=== PATIENT | male | born 1975 | race Caucasian/White ===

== ENCOUNTER 2017-04-09 12:53 | Emergency (ER) | payer MEDICARE, MEDICAID ==
[~2017-04-09] VITALS: Ht 175.3 cm; Wt 77.1 kg
[~2017-04-09 12:53] MED LIST: ACYCLOVIR800 MG PO; BENADRYL25 M1 PO; BIAXIN500 MG PO; BUSPIRONE HCL10 M1 PO; CELEXA10 MG PO; CYCLOBENZAPRINE10 M2 OR; DIFLUCAN 100MG100 MG PO; FLUTICASONE 50M16 GM; KEFLEX 500MG.500 MG PO; MEDROL 4MG. DOSE4 MG PO; NYSTATIN O15 GM/TUBE EX; PREDNISONE 20MG20 MG PO; SINGULAIR5 MG PO; TIMOLOL5 ML OP; ZYRTEC 10MG TAB10 MG PO; [UNRECOGNIZED DRUG - OTHER] NS
[2017-04-09] MEDS ORDERED: PREDNISONE 20MG20 MG PO (13:12)
[2017-04-09] MEDS ORDERED: KEFLEX 500MG.500 MG PO (13:12)
--- NOTE | 2017-04-09 13:14 | [facility] Report ---
History of Present Issue Date/Time Seen by Provider 04/09/17 1309 Visit Reason Pt arrived:Walked Presenting Problem:PT STATES FEELING BAD SINCE 0400 THIS MORNING. STATES CHILLS, DIZZINESS AND CHEST CONGESTION. STATES TAKING IBUPROFEN AT 0400 Location if Accident: Onset of symptoms date/time:04/09/1702/19/400 or onset unknown for: Have you (or family members/close friends) recently traveled outside the [place]? N If Yes, where/when: Have you had exposure to infectious disease within the past month? TB? Other? Specify: Source patient, RN notes reviewed, family Exam Limitations no limitations Comment Patient states has had burning in his chest, dizziness, nasal congestion, cold chills since late last night. Started after weed eating and mowing. No fever. Denies muscle aches. No cough. ALLERGIES Coded Allergies: tree nut (Intermediate, 11/29/16) latex (11/29/16) Home Medications Reported Medications CITALOPRAM HYDROBROMIDE (Citalopram HBr) 20 MG PO DAILY Cetirizine Hcl (All Day Allergy) 10 MG PO DAILY Montelukast Sodium (Singulair 5MG) 5 MG PO DAILY History Medical History General CAD? No Angina: No NC: No Hypertension? No Hyperlipidemia? No CHF? No DVT? No PE? No COPD? No Asthma? Yes Anemia? No GERD? No Gastric ulcers? No GI Bleed? No Hernia? No Thyroid Problems? No Hypothyroidism? No CVA? No Seizures? No Diabetes? No Renal Insuffiency? No UTI? No Stones? No BPH? No GB Disease: No Nephritic Syndrome? No Asplenia? No Hepatitis? No Sickle Cell Disease? No Arthritis? No Migraines? No Cataracts? No Glaucoma? Yes MRSA? No HIV? No TB? No Anxiety? No Depression? No Cancer? Yes Site: SKIN Immunization HX DT/Tetanus 1-4 Years Ago Flu 2013-15FSN Pneumonia Received In Past Surgical Hx Previous Surgery?Y SPLEENECTOMY RECONSTRU FACIAL SX X 2 LT WRIST FX X 2 SINUS SX, DNS HPV SURGERY RIGHT EYE SX X 2 SKIN CA FACE REMOVED Family History Family HX Diabetes Yes CAD Yes Hypertension Yes Hyperlipidemia Yes Cancer Yes TB No Social History Smoking Hx Smoker: Current Every Day Smoker Tobacco: Yes Type Cigarettes Packs/day < 1 Pack Alcohol Alcohol: No Review of Systems All Other Systems Reviewed and Negative Constitutional chills, denies fever, malaise Respiratory denies cough Physical Exam Vital Signs Vital Signs Date Time Temp Pulse Resp B/P Pulse O2 O2 Flow FiO2 Ox Delivery Rate 04/09 1302 98.2 86 20 106/72 99 General Appearance normal appearance, no apparent distress Ear, Nose, Throat hearing grossly normal, normal ENT inspection Neck normal inspection, non-tender, supple, full range of motion Respiratory Status No: respiratory distress, trachea midline, chest symmetrical. Lung Sounds bilateral: normal breath sounds, lungs clear. Cardiovascular normal exam, regular rate/rhythm, no peripheral edema, no gallop, no JVD, no murmur, no rub Peripheral Pulses Pulses normal Yes Extremities non-tender, normal range of motion, normal inspection, normal capillary refill Neurologic alert, normal exam, oriented x 3 Mental status normal mood/affect Medical Decision Making LABS/Meds/Orders Pt receiving controlled substance in ED? No Departure Departure Time of Disposition 1310 Disposition DC Home or Self Care(routine) Clinical Impression Primary Impression: Allergic pneumonitis Condition STABLE Patient Instructions DI for Acute Bronchitis Discharge Counseling Counseled pt/family regarding diagnosis, test results, medications/RX, home care, follow up needs Prescriptions Current Visit Scripts CEPHALEXIN (Keflex 500MG Capsule) 500 MG PO BID #14 CAP Prednisone (Prednisone 20MG) 20 MG PO BID #10 TAB at 1313
[2017-04-09 13:16] VITALS: BP 106/72
--- OUTSIDE RECORDS SUMMARY | 2017-04-10 17:07 | External Medical Summary Rpt ---
Author Author , DANY SAENZ Address Unknown Phone [email or web address] Team Providers Care Contact Center Rep Name Role Phone SINGH ELVI, SINGH Unavailable Unavailable ELVI [facility] Unavailable Unavailable [place], [facility] [place] [facility] Unavailable Unavailable [facility], [facility] ARNOLD, ARNOLD Unavailable Unavailable ARNOLD BARBARA, ARNOLD Unavailable Unavailable BARBARA ARNOLD BARBARA, ARNOLD Unavailable Unavailable BARBARA TORI STA, TORI Unavailable Unavailable STA DUCKWORTH, DUCKWORTH Unavailable Unavailable CASPER BARBARA, CASPER Unavailable Unavailable BARBARA [facility] Unavailable Unavailable ONCOLOGY &, [facility] & Unavailable Unavailable DUBILIER, CHIPPS TONY & DUBILIER [facility], Unavailable Unavailable [facility] Unavailable Unavailable THE [facility], [facility] DEMI, Unavailable Unavailable [facility] DEMI NARINDER JR MARYANN, NARINDER Unavailable Unavailable JR MARYANN NICHOLE TAQUERIA, Unavailable Unavailable NICHOLE TAQEURIA [facility] Unavailable Unavailable [facility] WRIGHT ANNETTE, WRIGHT ANNETTE Unavailable Unavailable BOOM JESSICA, BOOM Unavailable Unavailable JESSICA [facility] Un[facility] Unavailable Unavailable [facility] Unavailable Unavailable INC, [facility] Unavailable Unavailable HOSPITAL P, [facility] HOSPITAL P COOK MENG, COOK MENG Unavailable Unavailable [facility], Unavailable Unavailable [facility] VIKTOR HOANG Unavailable Unavailable [facility], [facility], [facility] Un[facility], [facility] JACKSON MAX, JACKSON Unavailable Unavailable MAX JACKSON MAX, JACKSON Unavailable Unavailable LINDA HUMPHREY Unavailable Unavailable JULIANE MINOO JR, MINOO JR Unavailable Unavailable MINOO JR DWI, MINOO Unavailable Unavailable JR DWI POLLOCK BARBARA, POLLOCK Unavailable Unavailable BARBARA LAILA RENUKA, Unavailable Unavailable LAILA RENUKA LAILA RENUKA, Unavailable Unavailable LAILA RENUKA MYHAND BARBARA, MYHAND Unavailable Unavailable BARBARA [facility] Unavailable Unavailable [facility], [facility] PSC [facility] Unavailable Unavailable [facility], [facility] PSC COLUNGA PUMA, COLUNGA Unavailable Unavailable PUMA CONNOLLY LAR, CONNOLLY LAR Unavailable Unavailable [facility], [facility], [facility] Unavailable Unavailable [facility], [facility] CHAVEZ, CHAVEZ Unavailable Unavailable CHAVEZ SHE, CHAVEZ Unavailable Unavailable SHE LAMBERT OSMIN, LAMBERT OSMIN Unavailable Unavailable SOKAN BAB, SOKAN BAB Unavailable Unavailable [facility], [facility] Unavailable Unavailable [facility], [facility] KYRA SELWYN, KYRA Unavailable Unavailable SELWYN [facility] Un[facility] Un[facility] DEPT [facility] DE[facility] BILL [facility] Unavailable Unavailable DEPT BILL, [facility] DE[facility] BILL HIGH, HIGH Unavailable Unavailable HIGH MAR, HIGH MAR Unavailable Unavailable Purpose Continuity of Care Document - 01-10-2011 through 2016 Problems Code Diagnosis DOS Provider Status J301 ALLERGIC 12-21-2016 [facility] RHINITIS [facility] OF DUE TO [place] POLLEN J3089 OTHER 12-21-2016 [facility] ALLERGIC [facility] OF RHINITIS [place] J4530 MILD 12-21-2016 [facility] PERSISTENT [facility] OF ASTHMA [place] UNCOMPLICAT ED Z50114 ALLERGY TO 12-21-2016 ALL[facility] OTHER FOODS [facility] [place] K521 TOXIC 11-29-2016 [facility] COLITIS R002 PALPITATION 11-29-2016 [facility] R079 CHEST PAIN 11-29-2016 [place] [facility] Z720 TOBACCO USE 11-29-2016 [facility] P [id number] CHOROIDAL 10-06-2016 [place] [facility] RUPTURE SERV UNSPECIFIED FOUNDATION EYE [id number] GLAUC SEC 10-06-2016 [place] [facility] TRAUMA SERV RT EYE FOUNDATION INDETERMINA TE STAGE Z961 PRESENCE OF 10-06-2016 [facility] INTRAOCULAR [facility] LENS J209 ACUTE 09-14-2016 [facility] BRONCHITIS PART[facility]ERS OF UNSPECIFIED [place] Z23 ENCOUNTER 08-10-2016 [facility] N BILL J0190 ACUTE 06-17-2016 TONY JIMENEZ SINUSITIS UNSPECIFIED J310 CHRONIC 05-20-2016 [facility] RHINITIS PARTNERS OF [place] I10 ESSENTIAL 03-18-2016 [facility] PRIMARY PARTNERS OF HYPERTENSIO [place] N J4520 MILD 03-18-2016 [facility] INTERMITTEN PARTNERS OF T ASTHMA [place] UNCOMPLICAT ED J249SUK OTHER 03-18-2016 [facility] ADVERSE PARTNERS OF FOOD [place] REACTIONS NEC SUBSEQUENT ENC E538 DEFICIENCY 01-26-2016 [facility] OF OTHER NEUROLOGY SPECIFIED B GROUP VITAMINS 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 J3081 ALLERG 01-01-2016 [facility] RHINITIS [facility] OF D/T ANIMAL [place] CAT DOG HAIR & DANDER Y01332 OTHER 12-31-2015 [facility] ELEVATED COMMUNTIY WHITE BLOOD HOSPITA CELL COUNT A630 ANOGENITAL 12-16-2015 [facility] Z302 ENCOUNTER 12-16-2015 [facility] W19853 MUSCLE 09-29-2015 [facility] SPASM OF NEUROLOGY BACK R748 ABNORMAL 08-04-2015 [facility] LEVELS OF COMMUNTIY OTHER SERUM HOSPITA ENZYMES R749 ABNORMAL 08-04-2015 [facility]UM [place] ENZYME ONCOLOGY & LEVEL UNSPECIFIED L089 LOCAL INF 07-25-2015 AUSTENMARIE BARBARA THE SKIN & SUBCUTANEOU S TISSUE UNS S38440 PAIN IN 07-13-2015 [place] RIGHT MEDICAL SHOULDER IMAGING ASS R0781 PLEURODYNIA 07-13-2015 [facility] [id number] CONTUSION 07-13-2015 TONY JIMENEZ UNS FRONT WALL THORAX INITIAL ENCNTR Z043 ENCOUNTER 07-13-2015 [place] EXAM & MEDICAL OBSERVATION IMAGING ASS FOLLOW OT ACCIDENT M5032 OTH CERV 06-08-2015 [facility] [place] [facility] DEGENERATIO N MID-CERVICA L REGION R209 UNSPECIFIED 06-08-2015 [facility] COMM[facility] DISTURBANCE HOSPITA S OF SKIN SENSATION M79479 OTHER 06-08-2015 [facility] SYMPTOMS & COMMUNTIY SIGNS HOSPITA INVOLVING THE NS R938 ABNORMAL 06-08-2015 [facility] FIND ON DX COMMUNTIY IMAGING OTH HOSPITA SPEC BODY STRCT 2662 OTHER 06-01-2015 [facility] B-COMPLEX NEUROLOGY DEFICIENCIE S 7964 OTHER 06-01-2015 [facility] ABNORMAL [place] [facility]ICAL ONCOLOGY & FINDING 4770 ALLERGIC 05-29-2015 [facility] RHINITIS PARTNERS OF DUE TO [place] POLLEN 4772 ALLERGIC 05-29-2015 [facility] RHINITIS PARTNERS OF DUE TO [place] ANIMAL HAIR AND DANDER 4778 ALLERGIC 05-29-2015 [facility] RHINITIS PARTNERS OF DUE TO [place] OTHER ALLERGEN 2704 DISTURBANCE 05-26-2015 [facility] S NEUROLOGY SULPHUR-JOHN PAUL R AMINO-ACID METABOLISM 21333 OTH 05-26-2015 [facility] SYMPTOMS NEUROLOGY INVLV NERV&MUSCUL OSKELETAL SYSTEMS 7820 DISTURBANCE 05-26-2015 [facility] OF SKIN NEUROLOGY SENSATION 7937 NONSPC ABN 05-26-2015 [facility] FINDNG RAD NEUROLOGY & OTH EXM MUSCULSKELT L SYS V1552 PERSONAL 05-18-2015 [facility] HISTORY OF COMMUNTIY TRAUMATIC HOSPITA BRAIN INJURY 4739 UNSPECIFIED 05-06-2015 [facility] SINUSITIS PARTNERS OF [place] 9953 ALLERGY 05-06-2015 ALLERGY UNSPECIFIED PARTNERS OF NOT [place] ELSEWHERE CLASSIFIED 3829 UNSPECIFIED 04-11-2015 ARNOLD BARBARA OTITIS MEDIA 4619 ACUTE 04-11-2015 ARNOLD BARBARA SINUSITIS, UNSPECIFIED 4659 ACUTE URIS 03-28-2015 ARNOLD BARBARA OF UNSPECIFIED SITE 73096 [place] 03-03-2015 [place] [facility] ASSOCIATED SERV WITH OCULAR FOUNDATION TRAUMA 31360 INDETERMINA 03-03-2015 [place] MEDICAL TE STAGE SERV [facility] FOUNDATION 4779 ALLERGIC 02-05-2015 [facility] RHINITIS PHYSICIANS CAUSE GROUP UNSPECIFIED 61771 IMPOTENCE 12-30-2014 [facility] P 470 DEVIATED 11-13-2014 COMMUNITY NASAL ANESTH OF SEPTUM THE BLUE 07229 OTHER 11-11-2014 [facility] DISEASES OF [facility] P CAVITY AND SINUSES V7283 OTHER 11-11-2014 [place] SPECIFIED [facility] P VE EXAMINATION 4730 CHRONIC 11-10-2014 JACKSON MAX MAXILLARY SINUSITIS 18987 OTHER 10-28-2014 LAILA CHRONIC RENUKA ALLERGIC CONJUNCTIVI TIS 02723 EXTRINSIC 10-28-2014 LAILA ASTHMA, RENUKA UNSPECIFIED 7840 HEADACHE 10-09-2014 [facility] 7842 SWELLING 10-09-2014 [place] MASS OR MEDICAL LUMP IN IMAGING ASS HEAD AND NECK 20554 PRIMARY 09-23-2014 [place] [facility] 4610 ACUTE 09-22-2014 RENETTA MAX MAXILLARY SINUSITIS 75611 UNSPECIFIED 08-26-2014 [place] VIRAL [facility] P 2163 BENIGN 08-21-2014 JACKSON MAX NEOPLASM SKIN OTHER&UNSPE C PARTS FACE 7020 ACTINIC 08-21-2014 [facility] KERATOSIS [facility] 7062 SEBACEOUS 08-21-2014 [facility] CYST TONY & DUBILIER 7099 UNSPECIFIED 08-21-2014 COMMUNITY DISORDER ANESTH OF OF THE BLUE SKIN&SUBCUT ANEOUS TISSUE V5869 LONG-TERM 08-21-2014 [facility] (CURRENT) MEM HOS[facility] USE OF INC OTHER MEDICATIONS 0549 HERPES 07-30-2014 [facility]IA [facility] WITHOUT PSC MENTION OF COMPLICATIO N 19971 CONDYLOMA 07-30-2014 [facility] PSC 2382 NEOPLASM OF 07-30-2014 NEW UNCERTAIN [facility] SKIN 0794 HUMAN 07-22-2014 [place] [facility] VIRUS IN HOSPITAL P CCE & UNS SITE 37704 PHOTOKERATI 06-30-2014 JACKSON MAX TIS 4660 ACUTE 06-23-2014 ARNOLD BARBARA BRONCHITIS 0539 HERPES 06-09-2014 ARNOLD BARBARA ZOSTER WITHOUT MENTION OF COMPLICATIO N 6929 CONTACT 06-09-2014 ARNOLD BARBARA DERMATITIS& OTHER ECZEMA DUE UNSPEC CAUSE 6931 DERMATITIS 04-17-2014 LAILA DUE TO FOOD [place]EN[place]A TAKEN INTERNALLY 7862 COUGH 04-17-2014 LAILA RENUKA 7821 RASH AND 03-19-2014 [facility] OTHER N EMERGENCY NONSPECIFIC PHYS SKIN ERUPTION E9050 VENOMOUS 03-19-2014 [facility] SNAKES&DONAVAN N EMERGENCY RDS PHYS CAUSE POISN&TOX REACT 50543 [place] 02-25-2014 [place] [facility] ST[facility] SERV UNSPECIFIED FOUNDATIO 79024 EXTRINSIC 02-03-2014 LAILA ASTHMA, RENUKA WITH EXACERBATIO N 60015 ACUT 10-17-2013 LAILA SUPPRATV [place] OTITIS MEDIA W/O SPONT RUP EARDRUM 4780 HYPERTROPHY 10-17-2013 LAILA OF NASAL [place] TURBINATES 56828 SLOWING OF 07-02-2013 [place] URINARY [facility] P 18962 OTHER 05-29-2013 [facility] DISORDER OF PSC BLADDER 83697 HYPERTROPHY 05-14-2013 [place] PROSTATE [facility] W/UR OBST & HOSPITAL P OTH LUTS 78719 URINARY 05-14-2013 [place] HESITANCY [facility] P 29990 DYSFUNCTION 04-18-2013 LAILA OF [place] EUSTACHIAN TUBE 6011 CHRONIC 04-16-2013 [place] PROSTATITIS [facility] P 82820 UNSPECIFIED 03-29-2013 AUSTENMARIE JIMENEZ URETHRITIS 70106 HEAD 03-29-2013 PROFESSION[facility] INJURY, L REHAB UNSPECIFIED ASSOC PSC 24777 SIMPLE/UNSP 10-18-2012 LAILA ECIFIED [place]A CHRONIC SEROUS OTITIS MEDIA 3823 UNSPECIFIED 09-17-2012 LAILA CHRONIC R[place]AK SUPPURATIVE OTITIS MEDIA V7651 SPECIAL 05-01-2012 [place] SCREENING ANESTHESIA FOR [facility] MALIGNANT NEOPLASMS COLON 78473 ACUTE 03-15-2012 LAILA SEROUS [place] OTITIS MEDIA 73977 UNSPECIFIED 02-17-2012 TONY JIMENEZ INFECTIVE OTITIS EXTERNA 1105 DERMATOPHYT 09-19-2011 TONY JIMENEZ OSIS OF THE BODY 42341 ING TAL 09-19-2011 TONY JIMENEZ W/O MENTION OBST/GANGRE N UNILAT/UNSP EC 462 ACUTE 09-15-2011 LAILA PHARYNGITIS RENUKA 2298 BENIGN 07-07-2011 [facility] NEOPLASM OF [facility] P SPECIFIED SITES V7381 SPECIAL 07-07-2011 [facility] P HUMAN PAPILVIRUS 6869 UNSPEC 06-30-2011 TONY JIMENEZ LOCAL INFECTION SKIN&SUBCUT ANEOUS TISSUE 97238 OPEN ANGLE 06-21-2011 [place] [facility] WITH SERV BORDERLINE FOUNDATIO FINDINGS HIGH RISK 29759 ENTHESOPATH 03-18-2011 TONY JIMENEZ Y OF UNSPECIFIED SITE 4710 POLYP OF 01-10-2011 LAILA NASAL REN[place]A CAVITY 47126 WHEEZING 01-10-2011 LAILA RENUKA 04023 ANAPHYLACTI 01-10-2011 [facility] [place] REACTION [facility] DUE TO INC PEANUTS V727 DIAGNOSTIC 01-10-2011 LAILA SKIN AND RENUKA SENSITIZATI ON TESTS K52.1 TOXIC GASTROENTER ITIS AND COLITIS R00.2 PALPITATION S Allergies, Adverse Reactions, Alerts Type Drug Allergy Food Allergy Adverse Reaction to Substance Substance Reaction Severity NUTS B-LBSFQI-BTVJ/THROAT Severe NUTS (FOOD) A-GVUFKQ-VZBV/THROAT Severe Medications Na ND Rx Da Fi Fi Am Da Di Ph RX Ph St me C No te ll ll ou ys ag ar # ys at rm s nt no ma ic us Or Da si cy ia de te s n re d DI 00 03 0 No PH 40 -2 EN 92 3- Lo HY [address] 03 13 er AM 1 IN Ac E ti 50 ve MG /M L SY RN G Me 00 03 0 No th 00 -2 yl 90 3- Lo pr 19 20 ng ed 00 13 er ni 9 so Ac lo ti ne ve So d Avilez cc in a Immunization Name Date Rout CVX Reac Dose Comm Prov Is Faci e tion ent ider Refu lity Give sed n IIV4 12-0 158 [facility] No [facility] 7-20 O O VACC 16 DIST DIST RICT RICT SPLI T HLTH HLTH VIRU S DEPT DEPT 0.5 BILL BILL ML DOS FOR IM USE Vital Signs 11-24-2012 20:10 Name Value Interpretat Reference Comment ion Range BP 78 mm[Hg] Diastolic BP Systolic 149 mm[Hg] Heart 76 /min Rate/Pulse O2% 98 % Respiratory 20 /min Rate Procedures Procedure DOS Code Location Performer Comment NITRIC 92996 [facility] HIGH OXIDE 7 [facility] [place] DETERMINA TION DEMO&/BOZENA 07579 ALLER[facility] HIGH L OF PT 7 PARTNERS UTILIZ OF [place] AERSL CO GEN/NEB/I NHLR/IP BRNCDILAT 69718 [facility] HIGH RSPSE 7 PARTNERS SPMTRY OF [place] PRE&POST- CO BRNCDILAT ADMN ECG 40474 [facility] HENNESSY JR ROUTINE 7 [facility] W/LEAST P 12 LDS I&R ONLY RADIOLOGI 50766 [facility] C 7 MEDICAL EXAMINATI IMAGING ON CHEST ASS SINGLE VIEW FRONTAL CREATINE 80513 [facility] KINASE 7 [facility] [place] [place] [address] [facility] LIPASE 7 [facility] INC INC ECG 44809 [facility] ROUTINE 7 [facility] ECG INC INC W/LEAST 12 LDS TRCG ONLY W/O I&[place] [address] [facility] THYROID 7 [facility] MEM [facility]OS[facility] STIMULATI INC INC NG HORMONE TSH COMPREHEN 82860 [facility] SIVE 7 MEM [facility] [place] [address] [facility] AMYLASE 7 [facility]OS[facility] INC INC CREATINE 79424 [facility] KINASE MB 7 [facility] [place] [place] [address] [facility] INFUSION 7 MEM [facility] MEM [facility]OS[facility] THERAPY/P INC INC ROPHYLAXI S /DX 1ST TO 1 [place] [address] [facility] TROPONIN 7 MEM HOS[facility] MEM [facility]OS[facility] QUANTITAT INC INC LATIA BLOOD 13390 [facility] COUNT 7 MEM HOS[facility] MEM HOSP COMPLETE INC INC AUTO&AUTO DIFRNTL WBC OPHTH 50657 ROLANDO CHAVEZ MEDICAL 7 MEDICAL XM&EVAL SERV COMPRHNSV FOUNDATIO ESTAB PT N 1/> COMPUTERI 39548 ROLANDO CHAVEZ ZED 7 MEDICAL OPHTHALMI SERV C IMAGING FOUNDATIO OPTIC N NERVE BRNCDILAT 84786 [facility] HIGH RSPSE 7 PARTNERS SPMTRY OF [place] PRE&POST- CO BRNCDILAT ADMN INJECTION J1040 ALLERGY HIGH 7 PARTNERS METHYLPRE OF [place] DNISOLONE CO ACETATE 80 MG DEMO&/BOZENA 05907 ALLERGY HIGH L OF PT 7 PARTNERS UTILIZ OF [place] AERSL CO GEN/NEB/I NHLR/IP NITRIC 40699 [facility]ER[facility] HIGH OXIDE 7 [facility] [place] CO DETERMINA TION IIV4 VACC 65041 [facility] SPLIT [facility] VIRUS 0.5 HLTH DEPT HLTH DEPT ML DOS BILL BILL FOR IM USE ADMINISTR G0008 [facility] ATION OF 6 DISTRICT DISTRICT INFLUENZA HLTH DEPT HLTH DEPT VIRUS BILL BILL VACCINE BRNCDILAT 98725 [facility] HIGH MAR RSPSE 6 PARTNERS SPMTRY OF [place] PRE&POST- CO BRNCDILAT ADMN NITRIC 53326 [facility]ER[facility] HIGH MAR OXIDE 6 [facility]ERS [facility] [place] CO DETERMINA TION DEMO&/BOZENA 18578 ALLERGY HIGH MAR L OF PT 6 PARTNERS UTILIZ OF [place] AERSL CO GEN/NEB/I NHLR/IP DEMO&/BOZENA 82782 ALLERGY HIGH MAR L OF PT 6 PARTNERS UTILIZ OF [place] AERSL CO GEN/NEB/I NHLR/IP NITRIC 99219 ALLERGY HIGH MAR OXIDE 6 PARTNERS OF [place] CO DETERMINA TION BRNCDILAT 73419 [facility]ER[facility] HIGH MAR RSPSE 6 PARTNERS SPMTRY OF [place] PRE&POST- CO BRNCDILAT ADMN OPHTH 66442 [facility] 6 MEDICAL SHE XM&EVAL SERV COMPRHNSV FOUNDATIO ESTAB PT N 1/> PROF SVCS 40910 [facility] HIGH MAR ALLG 6 PARTNERS IMMNTX X OF [place] W/PRV CO ALLGIC XTRCS NJXS BLOOD 23741 [facility] COUNT 6 N N COMPLETE COMMUNTIY COMMUNTIY AUTO&AUTO HOSPITA HOSPITA DIFRNTL WBC PROF SVCS 29265 [facility] HIGH MAR ALLG 6 PARTNERS IMMNTX X OF [place] W/PRV CO ALLGIC XTRCS NJXS PREPJ& 68254 ALLERGY HIGH MAR ALLERGEN 6 PARTNERS IMMUNOTHE OF [place] RAPY CO 1/MOTORBOAT MECHANIC ANTIGEN VASECTOMY 40849 [facility] UNI/BI 6 [facility] SPX CLINIC CLINIC W/POSTOP PSC PSC SEMEN EXAMS ANESTHESI 60634 ANESTHESI CONNOLLY LAR A MALE 6 A GENITALIA ASSOCIATE INCL S PSC OPEN URETHRAL PX DSTRJ 40253 [facility] LESION 6 [facility] PENIS CLINIC CLINIC SIMPLE [place] [address] [facility]ER[facility] HIGH MAR ALLG 6 PARTNERS IMMNTX X OF [place] W/PRV CO ALLGIC XTRCS NJXS COLLECTIO 83028 [facility] MYHAND N VENOUS 6 [facility] BLOOD ONCOLOGY VENIPUNCT & URE CYANOCOBA 51246 [facility] JENNIFER 6 N N VITAMIN COMMUNTIY COMMUNTIY B-12 HOSPITA HOSPITA BLOOD 28217 [facility] COUNT 6 N N COMPLETE COMMUNTIY COMMUNTIY [place] [address] [facility] FOLIC 6 N N ACID COMMUNTIY COMMUNTIY SERUM HOSPITA HOSPITA BLOOD 81010 [facility] COUNT 6 N N SMEAR COMMUNTIY COMMUNTIY [facility] HOSPITA W/MNL DIFRNTL WBC COUNT OPH 13230 [facility]ICAL 6 MEDICAL SHE XM&EVAL SERV INTERMEDI FOUNDATIO ATE ESTAB N PT VISUAL 66631 ROLANDO CHAVEZ FIELD XM 6 MEDICAL SHE UNI/BI SERV W/INTERP [place] [address] [facility]ER[facility] HIGH MAR ALLG 6 PARTNERS IMMNTX X OF [place] W/PRV CO ALLGIC XTRCS NJXS PROF SVCS 12163 ALLERGY HIGH MAR ALLG 5 PARTNERS IMMNTX X OF [place] W/PRV CO ALLGIC XTRCS NJXS NITRIC 33224 [facility] HIGH MAR OXIDE 5 [facility] [place] CO DETERMINA TION SPMTRY 38873 ALLERGY HIGH MAR W/VC 5 PARTNERS EXPIRATOR OF [place] Y PETRA CO W/WO MXML VOL VNTJ PROF [facility] 10115 ALLERGY HIGH MAR ALLG 5 PARTNERS IMMNTX X OF [place] W/PRV CO ALLGIC XTRCS NJXS BLOOD 44906 [facility] COUNT 5 N N SMEAR COMMUNTIY COMMUNTIY [facility] HOSPITA W/MNL DIFRNTL WBC COUNT BLOOD 99358 [facility] COUNT 5 N N COMPLETE COMMUNTIY COMMUNTIY AUTOMATED HOSPITA HOSPITA RADEX 74994 [place] NICHOLE SHOULDER 5 MEDICAL TAQUERIA COMPLETE IMAGING MINIMUM 2 ASS VIEWS RADEX 51515 [place] NICHOLE RIBS 5 MEDICAL TAQUERIA UNILATERA IMAGING L 2 VIEWS ASS RADEX 36595 [facility] RIBS UNI 5 MEM HOSP MEM HOSP W/POSTERO INC INC ANT CH MINIMUM 3 VIEWS BLOOD 73586 [facility] COUNT 5 N N COMPLETE COMMUNTIY COMMUNTIY AUTO&AUTO HOSPITA HOSPITA DIFRNTL WBC PREPJ& 89415 ALLERGY HIGH MAR ALLERGEN 5 PARTNERS IMMUNOTHE OF [place] RAPY CO 1/MOTORBOAT MECHANIC ANTIGEN BRNCDILAT 56817 [facility]ER[facility] HIGH MAR RSPSE 5 PARTNERS SPMTRY OF [place] PRE&POST- CO BRNCDILAT ADMN SPMTRY 54395 ALLERGY ALLERGY W/VC 5 PARTNERS PARTNERS EXPIRATOR OF [place] OF [place] Y PETRA CO CO W/WO MXML VOL VNTJ PERCUTANE 96331 ALLER[facility] HIGH MAR OUS TESTS 5 PARTNERS OF [place] W/ALLERGE CO RENETTA EXTRACTS NITRIC 02965 ALLERGY HIGH MAR OXIDE 5 PARTNERS OF [place] G[place] CO DETERMINA TION COLLECTIO 87518 [facility] N VENOUS 5 N N BLOOD COMMUNTIY COMMUNTIY VENIPUNCT HOSPITA HOSPITA URE BLOOD 95681 [facility] COUNT 5 N N COMPLETE COMMUNTIY COMMUNTIY AUTO&AUTO HOSP[place] [address] [facility] HOMOCYSTE 5 N N INE COMMUNTIY COMMUNTIY HOSPITA HOSPITA ORGANIC 92068 [facility] ACID 1 5 N N QUANTITAT COMMUNTIY COMMUNTIY LATIA HOSPITA HOSPITA INJECTION J3420 [facility] OSMIN VIT B-12 5 N NEUROLOGY CYANOCOBA JENNIFER TO 1000 MCG MRI 56432 [facility] SPINAL 5 N N CANAL COMMUNTIY COMMUNTIY CERVICAL HOSPITA HOSPITA W/O & W/CONTR MATRL THERAPEUT 60136 [facility] OSMIN IC 5 N PROPHYLAC NEUROLOGY TIC/DX INJECTION SUBQ/IM INJECTION J3420 [facility] OSMIN VIT B-12 5 N NEUROLOGY CYANOCOBA JENNIFER TO 1000 MCG THERAPEUT 54342 [facility] OSMIN IC 5 N PROPHYLAC NEUROLOGY TIC/DX INJECTION SUBQ/IM INJECTION J3420 [facility] OSMIN VIT B-12 5 N NEUROLOGY CYANOCOBA JENNIFER TO 1000 MCG THERAPEUT 90416 [facility] OSMIN IC 5 N PROPHYLAC NEUROLOGY TIC/DX INJECTION SUBQ/IM PROF SVCS 55456 [facility]ER[facility] HIGH MAR ALLG 5 PARTNERS IMMNTX X OF [place] W/PRV CO ALLGIC XTRCS NJXS THERAPEUT 50078 [facility] IC 5 N PROPHYLAC NEUROLOGY TIC/DX INJECTION SUBQ/IM INJECTION J3420 [facility] VIT B-12 5 N NEUROLOGY CYANOCOBA JENNIFER TO 1000 MCG INJECTION J3420 [facility] VIT B-12 5 N NEUROLOGY CYANOCOBA JENNIFER TO 1000 MCG NEEDLE 63034 [facility] EMG EA 5 N EXTREMTY NEUROLOGY W/PARASPI NL AREA COMPLETE THERAPEUT 04302 [facility] IC 5 N PROPHYLAC NEUROLOGY TIC/DX INJECTION SUBQ/IM NERVE 66468 [facility] CONDUCTIO 5 N N STUDIES NEUROLOGY 9-10 STUDIES MRI 35676 [facility] SPINAL 5 N N CANAL COMMUNTIY COMMUNTIY CERVICAL HOSPITA HOSPITA W/O CONTRAST MATRL THERAPEUT 07939 [facility] IC 5 N PROPHYLAC NEUROLOGY TIC/DX INJECTION SUBQ/IM INJECTION J3420 [facility] VIT B-12 5 N NEUROLOGY CYANOCOBA JENNIFER TO 1000 MCG MRI BRAIN 27753 [facility] BRAIN 5 N N STEM W/O COMMUNTIY COMMUNTIY CONTRAST HOSPITA HOSPITA MATERIAL INJECTION J3420 [facility] VIT B-12 5 N NEUROLOGY CYANOCOBA JENNIFER TO 1000 MCG THERAPEUT 32670 [facility] IC 5 N PROPHYLAC NEUROLOGY TIC/DX INJECTION SUBQ/IM THERAPEUT 35230 [facility] IC 5 N PROPHYLAC NEUROLOGY TIC/DX INJECTION SUBQ/IM COLLECTIO 80013 [facility] N VENOUS 5 N N BLOOD COMMUNTIY COMMUNTIY VENIPUNCT HOSPITA HOSPITA URE INJECTION J3420 [facility] VIT B-12 5 N NEUROLOGY CYANOCOBA JENNIFER TO 1000 MCG ORGANIC 97023 [facility] ACID 1 5 N N QUANTITAT COMMUNTIY COMMUNTI[place] [address] [facility] HOMOCYSTE 5 N N INE COMMUNTIY COMMUNTIY HOSPITA HOSPITA BLOOD 73571 [facility] COUNT 5 N N COMPLETE COMMUNTIY COMMUNTIY AUTOMATED HOSPITA HOSPITA BLOOD 40842 [facility] COUNT 5 N N SMEAR COMMUNTIY COMMUNTIY MCRSCP HOSPITA HOSPITA W/[place] [address] [facility] PYRIDOXAL 5 N N COMMUNTIY COMMUNTIY [place] [address] [facility] FOLIC 5 N N ACID COMMUNTIY COMMUNTIY SERUM HOSPITA HOSPITA CYANOCOBA 49578 [facility] JENNIFER 5 N N VITAMIN COMMUNTIY COMMUNTIY B-12 HOSPITA HOSPITA PROTEIN 81112 [facility] ELECTROPH 5 N N ORETIC COMMUNTIY COMMUNTIY FRACTJ&QU [place] [address] [facility] THIAMINE- 5 N N VITAMIN COMMUNTIY COMMUNTIY B-1 HOSPITA HOSPITA COLLECTIO 52329 [facility] N VENOUS 5 N N BLOOD COMMUNTIY COMMUNTIY VENIPUN[place] [address] [facility] THYROID 5 N N STIMULATI COMMUNTIY COMMUNTIY NG HOSPITA HOSPITA HORMONE TSH PROF [facility] 82508 ALLERGY HIGH MAR ALLG 5 PARTNERS IMMNTX X OF [place] W/PRV CO ALLGIC XTRCS NJXS INJ J0702 ARNMARIE ARNMARIE BETAMETHA 5 BARBARA BARBARA SONE ACETATE & [place]PH[place] 3 [place] [address] LAILA LAILA ALLG 5 RENUKA RENUKA IMMNTX X W/PRV ALLGIC XTRCS NJXS COMPUTERI 73943 ROLANDO CHAVEZ ZED 5 MEDICAL SHE OPHTHALMI SERV C IMAGING FOUNDATIO OPTIC N NERVE OPHTH 69897 [facility] 5 MEDICAL SHE XM&EVAL SERV COMPRHNSV FOUNDATIO ESTAB PT N 1/> PROF SVCS 69749 LAILA LAILA ALLG 5 RENUKA RENUKA IMMNTX X W/PRV ALLGIC XTRCS NJXS PROF SVCS 25680 LAILA LAILA ALLG 5 RENUKA RENUKA IMMNTX X [place] [address] LAILA LAILA ALLG 5 RENUKA RENUKA IMMNTX X W/PRV ALLGIC XTRCS NJXS PROF SVCS 26612 LAILA LAILA ALLG 5 RENUKA RENUKA IMMNTX X W/PRV ALLGIC XTRCS NJXS ANESTHESI 92133 [facility] ANNETTE A NOSE & 5 ANESTH ACCESSORY OF THE SINUSES BLUE NOS BLOOD 47233 [facility] COUNT [facility] COMPLETE INC INC AUTO&AUTO DIFRNTL WBC ECG 38161 [facility] HENNESSY JR ROUTINE 5 [facility] W/LEAST P 12 LDS I&R ONLY ECG 44289 [facility] ROUTINE 5 [facility] ECG INC INC W/LEAST 12 LDS TRCG ONLY W/O I&R COLLECTIO 73760 [facility] N VENOUS 5 [facility] BLOOD INC INC VENIPUNCT URE PROF [facility] 06235 LAILA LAILA ALLG 5 RENUKA RENUKA IMMNTX X W/PRV ALLGIC XTRCS NJXS SPMTRY 54472 LAILA LAILA W/VC 5 RENUKA RENUKA EXPIRATOR Y PETRA W/[place] [address] [facility] MAXILLOFA 5 [facility] CIAL W/O INC INC CONTRAST MATERIAL URNLS DIP 78526 [facility] SINGH 4 [facility] LET RGNT P NON-[place] [address] CHIPPS POLLOCK SURG 4 TONY & BARBARA PATHOLOGY DUBILIER GROSS&[place] EX[place] [address] [facility] INFUSION 4 [facility] THERAPY/P INC INC ROPHYLAXI S /DX 1ST TO 1 HR THERAPEUT 64331 [facility] IC 4 [facility] INJECTION INC INC IV PUSH EACH NEW DRUG ADJT TIS 46903 [facility] TRNS/REAR 4 [facility] GMT INC INC F/C/C/M/N /A/G/H/F 10SQCM/< ANES 83851 [facility] 4 ANESTH SELWYN MUSC & OF THE NRV HEAD BLUE NECK&[place] [address] [facility] INFUSION 4 [facility] THERAPY INC INC PROPHYLAX IS/DX EA HOUR PROF [facility] 63507 LAILA LAILA ALLG 4 RENUKA RENUKA IMMNTX X W/PRV ALLGIC XTRCS NJXS ANESTHESI 25401 ANESTHESI COLUNGA A MALE 4 A PUMA GENITALIA ASSOCIATE INCL [place] [address] NEW LINDA SURG 4 [facility] PSC GROSS&JESSICA ROSCOPIC EXAM DSTRJ 90386 NEW NEW LESION 4 [facility] SIMPLE PSC PSC SURG EXCISION PROF [facility] 90104 LAILA LAILA ALLG 4 RENUKA RENUKA IMMNTX X W/PRV ALLGIC XTRCS NJXS PREPJ& 74321 LAILA LAILA ALLERGEN 4 RENUKA RENUKA IMMUNOTHE RAPY 1/MOTORBOAT MECHANIC ANTIGEN PROF [facility] 99877 LAILA LAILA ALLG 4 RENUKA RENUKA IMMNTX X W/PRV ALLGIC XTRCS NJXS SPMTRY 50954 LAILA LAILA W/VC 4 RENUKA RENUKA EXPIRATOR Y PETRA W/WO MXML VOL VNTJ PROF [facility] 89061 LAILA LAILA ALLG 4 RENUKA RENUKA IMMNTX X W/PRV ALLGIC XTRCS NJXS PROF [facility] 35347 LAILA LAILA ALLG 4 RENUKA RENUKA IMMNTX X W/PRV ALLGIC XTRCS NJXS INJ J0702 TONY JIMENEZ BETAMETHA 4 BARBARA BARBARA SONE ACETATE & PHOSPHATE 3 MG OPHTH 05651 [facility] 4 MEDICAL SHE XM&EVAL SERV INTERMEDI FOUNDATIO ATE ESTAB PT GONIOSCOP 53837 [place] [facility] 4 MEDICAL SHE SEPARATE SERV PROCEDURE FOUNDATIO PRESSURIZ 18522 LAILA LAILA ED/NONPRE 4 RENUKA RENUKA SSURIZED INHALATIO N TREATMENT BRNCDILAT 98952 LAILA LAILA RSPSE 4 RENUKA RENUKA SPMTRY PRE&POST- BRNCDILAT ADMN INJECTION J2010 LAILA LAILA 4 RENUKA RENUKA LINCOMYCI N HCL UP TO 300 MG INJECTION J1040 LAILA LAILA 4 RENUKA RENUKA METHYLPRE DNISOLONE ACETATE 80 MG DEMO&/BOZENA 33908 LAILA LAILA L OF PT 4 RENUKA RENUKA UTILIZ AERSL GEN/NEB/I NHLR/IP THERAPEUT 88070 LAILA LAILA IC 4 RENUKA RENUKA PROPHYLAC TIC/DX INJECTION SUBQ/IM PROF SVCS 42676 LAILA LAILA ALLG 4 RENUKA RENUKA IMMNTX X W/PRV ALLGIC XTRCS NJXS COMPUTERI 75747 CJ CORONA STEPHANIE 4 [facility] CENTER C IMAGING OPTIC NERVE PROF [facility] 76189 LAILA LAILA ALLG 4 RENUKA RENUKA IMMNTX X W/PRV ALLGIC XTRCS NJXS PROF SVCS 12717 LAILA LAILA ALLG 4 RENUKA RENUKA IMMNTX X W/PRV ALLGIC XTRCS NJXS PROF SVCS 55829 LAILA LAILA ALLG 4 RENUKA RENUKA IMMNTX X W/PRV ALLGIC XTRCS 1 NJX PROF SVCS 09172 LAILA LAILA ALLG 4 RENUKA RENUKA IMMNTX X W/PRV ALLGIC XTRCS NJXS THERAPEUT 48536 LAILA LAILA IC 4 RENUKA RENUKA PROPHYLAC TIC/DX INJECTION SUBQ/IM INJECTION J1040 LAILA LAILA 4 RENUKA RENUKA METHYLPRE DNISOLONE ACETATE 80 MG INJECTION J2010 LAILA LAILA 4 RENUKA RENUKA LINCOMYCI N HCL UP TO 300 MG INJECTION J0696 TONY JIMENEZ 4 BARBARA BARBARA CEFTRIAXO NE SODIUM PER 250 MG PROF SVCS 85702 LAILA LAILA ALLG 4 RENUKA RENUKA IMMNTX X W/PRV ALLGIC XTRCS NJXS INJECTION J0696 TONY JIMENEZ 3 BARBARA BARBARA CEFTRIAXO NE SODIUM PER 250 MG PROF SVCS 38631 LAILA LAILA ALLG 3 RENUKA RENUKA IMMNTX X W/PRV ALLGIC XTRCS NJXS PROF SVCS 71386 LAILA LAILA ALLG 3 RENUKA RENUKA IMMNTX X W/PRV ALLGIC XTRCS NJXS PREPJ& 11581 LAILA LAILA ALLERGEN 3 RENUKA RENUKA IMMUNOTHE RAPY 1/MOTORBOAT MECHANIC ANTIGEN PROF SVCS 99360 LAILA LAILA ALLG 3 RENUKA RENUKA IMMNTX X W/PRV ALLGIC XTRCS NJXS PROF SVCS 73215 LAILA LAILA ALLG 3 RENUKA RENUKA IMMNTX X W/PRV ALLGIC XTRCS NJXS ANES 63982 ANESTHESI TORI TRANSURET 3 A STA HRAL ASSOCIATE W/URETHRO S PSC CYSTOSCOP Y NOS CYSTOURET [address] [facility] HROSCOPY 3 [facility] PSC PSC PROF SVCS 36438 LAILA LAILA ALLG 3 RENUKA RENUKA IMMNTX X W/PRV ALLGIC XTRCS NJXS URNLS DIP 18473 CL[facility] SINGH 3 [facility] LET RGNT P NON-AUTO W/O MICRSCP PROF SVCS 17530 LAILA LAILA ALLG 3 RENUKA RENUKA IMMNTX X W/PRV ALLGIC XTRCS NJXS PROF SVCS 47679 LAILA LAILA ALLG 3 RENUKA RENUKA IMMNTX X W/PRV ALLGIC XTRCS NJXS PROF SVCS 36971 LAILA LAILA ALLG 3 RENUKA RENUKA IMMNTX X W/PRV ALLGIC XTRCS NJXS PROF SVCS 17137 LAILA LAILA ALLG 3 RENUKA RENUKA IMMNTX X W/PRV ALLGIC XTRCS NJXS THERAPEUT 18110 LAILA LAILA IC 3 RENUKA RENUKA PROPHYLAC TIC/DX INJECTION SUBQ/IM INJECTION J1040 LAILA LAILA 3 RENUKA RENUKA METHYLPRE DNISOLONE ACETATE 80 MG URNLS DIP 28738 CL[facility] SINGH 3 [facility] LET RGNT P NON-AUTO W/O MICRSCP PROF [facility] 58353 LAILA LAILA ALLG 3 RENUKA RENUKA IMMNTX X W/PRV ALLGIC XTRCS NJXS THERAPEUT 51667 PROFESSIO CROSSFIEL IC PX 1/> 3 NAL REHAB D DEMI AREAS ASSOC EACH 15 PSC MIN EXERCISES THERAPEUT 99852 PROFESSIO CROSSFIEL ACTVITY 3 NAL REHAB D DEMI DIRECT PT ASSOC CONTACT PSC EACH 15 MIN THERAPEUT 21363 PROFESSIO CROSSFIEL IC PX 1/> 3 NAL REHAB D DEMI AREAS ASSOC EACH 15 PSC MIN EXERCISES THERAPEUT 08650 PROFESSIO CROSSFIEL IC PX 1/> 3 NAL REHAB D DEMI AREAS ASSOC EACH 15 PSC MIN EXERCISES PROF [facility] 67323 LAILA LAILA ALLG 3 RENUKA RENUKA IMMNTX X W/PRV ALLGIC XTRCS NJXS THERAPEUT 05158 PROFESSIO PROFESSIO IC PX 1/> 3 NAL REHAB NAL REHAB AREAS ASSOC ASSOC EACH 15 PSC PSC MIN EXERCISES THERAPEUT 35845 PROFESSIO CROSSFIEL IC PX 1/> 3 NAL REHAB D DEMI AREAS ASSOC EACH 15 PSC MIN EXERCISES THERAPEUT 89810 PROFESSIO CROSSFIEL ACTVITY 3 NAL REHAB D DEMI DIRECT PT ASSOC CONTACT PSC EACH 15 MIN THERAPEUT 61389 PROFESSIO CROSSFIEL IC PX 1/> 3 NAL REHAB D DEMI AREAS ASSOC EACH 15 PSC MIN EXERCISES THERAPEUT 55281 PROFESSIO CROSSFIEL IC PX 1/> 3 NAL REHAB D DEMI AREAS ASSOC EACH 15 PSC MIN EXERCISES PROF [facility] 35341 LAILA LAILA ALLG 3 RENUKA RENUKA IMMNTX X W/PRV ALLGIC XTRCS NJXS THERAPEUT 15379 PROFESSIO CROSSFIEL IC PX 1/> 3 NAL REHAB D DEMI AREAS ASSOC EACH 15 PSC MIN EXERCISES THERAPEUT 46113 PROFESSIO CROSSFIEL IC PX 1/> 3 NAL REHAB D DEMI AREAS ASSOC EACH 15 PSC MIN EXERCISES THERAPEUT 68881 PROFESSIO CROSSFIEL IC PX 1/> 3 NAL REHAB D DEMI AREAS ASSOC EACH 15 PSC MIN EXERCISES THERAPEUT 48667 PROFESSIO CROSSFIEL IC PX 1/> 3 NAL REHAB D DEMI AREAS ASSOC EACH 15 PSC MIN EXERCISES THERAPEUT 68066 PROFESSIO CROSSFIEL IC PX 1/> 3 NAL REHAB D DEMI AREAS ASSOC EACH 15 PSC MIN EXERCISES THERAPEUT 46616 PROFESSIO PROFESSIO IC PX 1/> 3 NAL REHAB NAL REHAB AREAS ASSOC ASSOC EACH 15 PSC PSC MIN EXERCISES THERAPEUT 67306 PROFESSIO PROFESSIO IC PX 1/> 3 NAL REHAB NAL REHAB AREAS ASSOC ASSOC EACH 15 PSC PSC MIN EXERCISES PROF SVCS 49217 LAILA LAILA ALLG 3 RENUKA RENUKA IMMNTX X W/PRV ALLGIC XTRCS NJXS THERAPEUT 56217 PROFESSIO CROSSFIEL IC PX 1/> 3 NAL REHAB D DEMI AREAS ASSOC EACH 15 PSC MIN EXERCISES PHYSICAL 29093 PROFESSIO CROSSFIEL THERAPY 3 NAL REHAB D DEMI EVALUATIO ASSOC N PSC PROF SVCS 92831 LAILA LAILA ALLG 3 RENUKA RENUKA IMMNTX X W/PRV ALLGIC XTRCS NJXS PROF SVCS 88307 LAILA LAILA ALLG 3 RENUKA RENUKA IMMNTX X W/PRV ALLGIC XTRCS NJXS PROF SVCS 98055 LAILA LAILA ALLG 3 RENUKA RENUKA IMMNTX X W/PRV ALLGIC XTRCS NJXS PROF SVCS 98637 LAILA LAILA ALLG 3 RENUKA RENUKA IMMNTX X W/PRV ALLGIC XTRCS NJXS PROF SVCS 09947 LAILA LAILA ALLG 3 RENUKA RENUKA IMMNTX X W/PRV ALLGIC XTRCS NJXS PROF [facility] 73764 LAILA LAILA ALLG 3 RENUKA RENUKA IMMNTX X W/PRV ALLGIC XTRCS NJXS PROF [facility] 82976 LAILA LAILA ALLG 3 RENUKA RENUKA IMMNTX X W/PRV ALLGIC XTRCS NJXS THERAPEUT 45460 [facility] SP[facility] IC 3 [facility] PROPHYLAC INC INC TIC/DX INJECTION SUBQ/IM OPHTH 05026 [facility] 3 MEDICAL SHE XM&EVAL SERV INTERMEDI FOUNDATIO ATE ESTAB PT PROF [facility] 68811 LAILA LAILA ALLG 3 RENUKA RENUKA IMMNTX X W/PRV ALLGIC XTRCS NJXS PROF [facility] 31880 LAILA LAILA ALLG 3 RENUKA RENUKA IMMNTX X W/PRV ALLGIC XTRCS NJXS PREPJ& 69697 LAILA LAILA ALLERGEN 3 RENUKA RENUKA IMMUNOTHE RAPY 1/MOTORBOAT MECHANIC ANTIGEN PROF [facility] 23480 LAILA LAILA ALLG 3 RENUKA RENUKA IMMNTX X W/PRV ALLGIC XTRCS NJXS PROF [facility] 64977 LAILA LAILA ALLG 3 RENUKA RENUKA IMMNTX X W/PRV ALLGIC XTRCS NJXS PROF [facility] 99629 LAILA LAILA ALLG 3 RENUKA RENUKA IMMNTX X W/PRV ALLGIC XTRCS NJXS PROF [facility] 46563 LAILA LAILA ALLG 2 RENUKA RENUKA IMMNTX X W/PRV ALLGIC XTRCS NJXS PROF [facility] 12269 LAILA LAILA ALLG 2 RENUKA RENUKA IMMNTX X W/PRV ALLGIC XTRCS NJXS PROF [facility] 65040 LAILA LAILA ALLG 2 RENUKA RENUKA IMMNTX X W/PRV ALLGIC XTRCS NJXS INJ J0702 TONY JIMENEZ BETAMETHA 2 BARBARA BARBARA SONE ACETATE & PHOSPH[place] 3 [place] [address] LAILA LAILA ALLG 2 RENUKA RENUKA IMMNTX X W/PRV ALLGIC XTRCS NJXS PROF SVCS 47521 LAILA LAILA ALLG 2 RENUKA RENUKA IMMNTX X W/PRV ALLGIC XTRCS NJXS INJ J0702 TONY HOODMETHA 2 BARBARA BARBARA SONE ACETATE & PHOSPHATE 3 MG PROF SVCS 22551 LAILA LAILA ALLG 2 RENUKA RENUKA IMMNTX X W/PRV ALLGIC XTRCS NJXS PROF SVCS 93806 LAILA LAILA ALLG 2 RENUKA RENUKA IMMNTX X W/PRV ALLGIC XTRCS NJXS PROF SVCS 84638 LAILA LAILA ALLG 2 RENUKA RENUKA IMMNTX X W/PRV ALLGIC XTRCS NJXS PROF SVCS 07212 LAILA LAILA ALLG 2 RENUKA RENUKA IMMNTX X W/PRV ALLGIC XTRCS NJXS PROF SVCS 11505 LAILA LAILA ALLG 2 RENUKA RENUKA IMMNTX X W/PRV ALLGIC XTRCS NJXS PROF SVCS 84675 LAILA LAILA ALLG 2 RENUKA RENUKA IMMNTX X W/PRV ALLGIC XTRCS NJXS PROF SVCS 13240 LAILA LAILA ALLG 2 RENUKA RENUKA IMMNTX X W/PRV ALLGIC XTRCS NJXS ANES 95043 [facility] 2 ANESTHESI BARBARA INTESTINE A PSC ENDOSCOPY DISTAL DUODENUM PROF SVCS 91811 LAILA LAILA ALLG 2 RENUKA RENUKA IMMNTX X W/PRV ALLGIC XTRCS NJXS PROF SVCS 95522 LAILA LAILA ALLG 2 RENUKA RENUKA IMMNTX X W/PRV ALLGIC XTRCS NJXS PROF SVCS 06184 LAILA LAILA ALLG 2 RENUKA RENUKA IMMNTX X W/PRV ALLGIC XTRCS NJXS PROF SVCS 32707 LAILA LAILA ALLG 2 RENUKA RENUKA IMMNTX X W/PRV ALLGIC XTRCS NJXS THERAPEUT 50932 LAILA LAILA IC 2 RENUKA RENUKA PROPHYLAC TIC/DX INJECTION SUBQ/IM INJECTION J1040 LAILA LAILA 2 RENUKA RENUKA METHYLPRE DNISOLONE ACETATE 80 MG PROF [facility] 27588 LAILA LAILA ALLG 2 RENUKA RENUKA IMMNTX X W/PRV ALLGIC XTRCS NJXS PROF [facility] 89466 LAILA LAILA ALLG 2 RENUKA RENUKA IMMNTX X W/PRV ALLGIC XTRCS NJXS PROF [facility] 72873 LAILA LAILA ALLG 2 RENUKA RENUKA IMMNTX X W/PRV ALLGIC XTRCS NJXS OPHTH 96822 [facility] 2 MEDICAL SHE XM&EVAL SERV INTERMEDI FOUNDATIO ATE ESTAB PT COMPUTERI 97084 ROLANDO CHAVEZ ZED 2 MEDICAL SHE OPHTHALMI SERV C IMAGING FOUNDATIO OPTIC NERVE PROF [facility] 16565 LAILA LAILA ALLG 2 RENUKA RENUKA IMMNTX X W/PRV ALLGIC XTRCS NJXS PROF [facility] 27694 LAILA LAILA ALLG 2 RENUKA RENUKA IMMNTX X W/PRV ALLGIC XTRCS NJXS PROF [facility] 21284 LAILA LAILA ALLG 2 RENUKA RENUKA IMMNTX X W/PRV ALLGIC XTRCS NJXS PREPJ& 99178 LAILA LAILA ALLERGEN 2 RENUKA RENUKA IMMUNOTHE RAPY 1/MOTORBOAT MECHANIC ANTIGEN PROF [facility] 20292 LAILA LAILA ALLG 2 RENUKA RENUKA IMMNTX X W/PRV ALLGIC XTRCS NJXS PROF [facility] 46543 LAILA LAILA ALLG 2 RENUKA RENUKA IMMNTX X W/PRV ALLGIC XTRCS NJXS PROF [facility] 42764 LAILA LAILA ALLG 2 RENUKA RENUKA IMMNTX X W/PRV ALLGIC XTRCS NJXS PROF [facility] 97641 LAILA LAILA ALLG 2 RENUKA RENUKA IMMNTX X W/PRV ALLGIC XTRCS NJXS PROF [facility] 62321 LAILA LAILA ALLG 2 RENUKA RENUKA IMMNTX X W/[place] [address] LAILA LAILA ALLG 2 RENUKA RENUKA IMMNTX X W/[place] [address] LAILA LAILA ALLG 2 RENUKA RENUKA IMMNTX X W/[place] [address] LAILA LAILA ALLG 2 RENUKA RENUKA IMMNTX X W/[place] [address] LAILA LAILA ALLG 2 RENUKA RENUKA IMMNTX X W/PRV ALLGIC XTRCS NJXS PROF [facility] 81398 LAILA LAILA ALLG 2 RENUKA RENUKA IMMNTX X W/PRV ALLGIC XTRCS NJXS PROF [facility] 21219 LAILA LAILA ALLG 2 RENUKA RENUKA IMMNTX X W/PRV ALLGIC XTRCS NJXS PREPJ& 47750 LAILA LAILA ALLERGEN 2 RENUKA RENUKA IMMUNOTHE RAPY 1/MOTORBOAT MECHANIC ANTIGEN PROF [facility] 30910 LAILA LAILA ALLG 2 RENUKA RENUKA IMMNTX X W/PRV ALLGIC XTRCS NJXS PROF [facility] 47157 LAILA LAILA ALLG 2 RENUKA RENUKA IMMNTX X W/PR[place] [address] LAILA LAILA ALLG 2 RENUKA RENUKA IMMNTX X W/[place] [address] LAILA LAILA ALLG 2 RENUKA RENUKA IMMNTX X W/[place] [address] LAILA LAILA ALLG 2 RENUKA RENUKA IMMNTX X W/[place] [address] LAILA LAILA ALLG 2 RENUKA RENUKA IMMNTX X W/PR[place] [address] LAILA LAILA ALLG 2 RENUKA RENUKA IMMNTX X W/PRV ALLGIC XTRCS NJXS PROF SVCS 97058 LAILA LAILA ALLG 2 RENUKA RENUKA IMMNTX X W/PRV ALLGIC XTRCS NJXS PREPJ& 24956 LAILA LAILA ALLERGEN 2 RENUKA RENUKA IMMUNOTHE RAPY 1/MOTORBOAT MECHANIC ANTIGEN PROF [facility] 82044 LAILA LAILA ALLG 2 RENUKA RENUKA IMMNTX X W/[place] [address] LAILA LAILA ALLG 1 RENUKA RENUKA IMMNTX X W/PRV ALLGIC XTRCS NJXS PROF SVCS 70819 LAILA LAILA ALLG 1 RENUKA RENUKA IMMNTX X W/[place] [address] LAILA LAILA ALLG 1 RENUKA RENUKA IMMNTX X W/[place] [address] LAILA LAILA ALLG 1 RENUKA RENUKA IMMNTX X W/PR[place] [address] LAILA LAILA ALLG 1 RENUKA RENUKA IMMNTX X W/[place] [address] LAILA LAILA ALLG 1 RENUKA RENUKA IMMNTX X W/PR[place] [address] LAILA LAILA ALLG 1 RENUKA RENUKA IMMNTX X W/PRV ALLGIC XTRCS NJXS PROF SVCS 21253 LAILA LAILA ALLG 1 RENUKA RENUKA IMMNTX X W/PRV ALLGIC XTRCS NJXS PROF SVCS 67136 LAILA LAILA ALLG 1 RENUKA RENUKA IMMNTX X W/[place] [address] LAILA LAILA ALLG 1 RENUKA RENUKA IMMNTX X W/PRV ALLGIC XTRCS NJXS PROF SVCS 22131 LAILA LAILA ALLG 1 RENUKA RENUKA IMMNTX X W/PRV ALLGIC XTRCS NJXS [facility] 40343 [facility] 1 MEDICAL SHE XM&EVAL SERV COMPRHNSV FOUNDATIO ESTAB PT 1/> [place] [address] LAILA LAILA ALLG 1 RENUKA RENUKA IMMNTX X W/PRV ALLGIC XTRCS NJXS THERAPEUT 00794 LAILA LAILA IC 1 RENUKA RENUKA PROPHYLAC TIC/DX INJECTION SUBQ/IM INJECTION J1040 LAILA LAILA 1 RENUKA RENUKA METHYLPRE DNISOLONE ACETATE 80 MG PREPJ& 47467 LAILA LAILA ALLERGEN 1 RENUKA RENUKA IMMUNOTHE RAPY 1/MOTORBOAT MECHANIC ANTIGEN PROF [facility] 42399 LAILA LAILA ALLG 1 RENUKA RENUKA IMMNTX X W/PRV ALLGIC XTRCS NJXS PROF SVCS 11813 LAILA LAILA ALLG 1 RENUKA RENUKA IMMNTX X W/[place] [address] LAILA LAILA ALLG 1 RENUKA RENUKA IMMNTX X W/PRV ALLGIC XTRCS NJXS PROF SVCS 66590 LAILA LAILA ALLG 1 RENUKA RENUKA IMMNTX X W/PRV ALLGIC XTRCS NJXS PROF SVCS 46619 LAILA LAILA ALLG 1 RENUKA RENUKA IMMNTX X W/PRV ALLGIC XTRCS NJXS THERAPEUT 79557 LAILA LAILA IC 1 RENUKA RENUKA PROPHYLAC TIC/DX INJECTION SUBQ/IM INJECTION [id number] LAILA LAILA 1 RENUKA RENUKA METHYLPRE DNISOLONE ACETATE 80 MG INJECTION J2010 LAILA LAILA 1 RENUKA RENUKA LINCOMYCI N HCL UP TO 300 MG PROF SVCS 68253 LAILA LAILA ALLG 1 RENUKA RENUKA IMMNTX X W/PRV ALLGIC XTRCS NJXS PROF SVCS 88402 LAILA LAILA ALLG 1 RENUKA RENUKA IMMNTX X W/PRV ALLGIC XTRCS NJXS PROF SVCS 66276 LAILA LAILA ALLG 1 RENUKA RENUKA IMMNTX X W/PRV ALLGIC XTRCS NJXS PROF [facility] 72033 LAILA LAILA ALLG 1 RENUKA RENUKA IMMNTX X W/PRV ALLGIC XTRCS NJXS PREPJ& 48158 LAILA LAILA ALLERGEN 1 RENUKA RENUKA IMMUNOTHE RAPY 1/MOTORBOAT MECHANIC ANTIGEN PROF [facility] 23142 LAILA LAILA ALLG 1 RENUKA RENUKA IMMNTX X W/PRV ALLGIC XTRCS NJXS DEMO&/BOZENA 55904 LAILA LAILA L OF PT 1 RENUKA GRAYSON UTILIZ AERSL GEN/NEB/I NHLR/IP COLLECTIO 33631 [facility] SPARKS N VENOUS 1 [facility] BLOOD INC INC VENIPUNCT URE BRNCDILAT 02401 LAILA LAILA RSPSE 1 RENUKA RENUKA SPMTRY PRE&POST- BRNCDILAT ADMN ALBUTEROL J7620 LAILA LAILA TO 2.5 1 RENUKA RENUKA MG & IPRATROPI UM BROM TO 0.5 MG PERCUTANE 49470 LAILA LAILA OUS TESTS 1 RENUKA RENUKA W/ALLERGE RENETTA EXTRACTS INTRACUTA 96087 LAILA LAILA NEOUS 1 RENUKA RENUKA TESTS W/ALLERGE RENETTA EXTRACTS ALLERGEN 77594 CLARE SPARKS SPECIFIC 1 [facility] IGE INC INC WILIAN/SEMI WILIAN EA ALLERGEN Encounters Encounter Start End Date Code Location Performer Type Date OFFICE 69464 [facility]PAT[facility] 7 7 [facility] [place] [facility] OUTPATIEN INC T EMERGENCY 56177 MECCA HOANG DEPT 7 7 PHYSICIAN VISIT S, PLLC HIGH SEVERITY& THREAT [facility] EMERGENCY 17708 [facility] 7 7 [facility] DEPARTMEN [facility] T VISIT MODERATE SEVERITY OFFICE 75328 [facility] OUTPATIEN 7 7 PARTNERS T VISIT OF [place] 40 CO MINUTES OFFICE 54373 TONY JIMENEZ OUTPATIEN 7 7 T VISIT 15 MINUTES OFFICE 83520 TONY JIMENEZ OUTPATIEN 6 6 [facility] BARBARA T VISIT 15 MINUTES OFFICE 46640 [facility] MAR OUTPATIEN 6 6 PARTNERS T VISIT OF [place] 25 CO MINUTES OFFICE 17846 TONY JIMENEZ OUTPATIEN 6 6 [facility]BAR[facility] BARBARA T VISIT 15 MINUTES OFFICE 96704 [facility] MAR OUTPATIEN 6 6 PARTNERS T VISIT OF [place] 25 CO MINUTES OFFICE 68397 [facility] OSMIN OUTPATIEN 6 6 N T VISIT NEUROLOGY 10 MINUTES OFFICE 07634 [facility]ERRICK MYHAND OUTPATIEN 6 6 [place] [facility] T VISIT ONCOLOGY 15 & MINUTES [facility] - 6 6 N OUTPATIEN COMMUNTIY T HOSPITA OFFICE 88376 [facility] OUT[facility] 6 6 N T VISIT NEUROLOGY 25 MINUTES [facility] - 6 6 N OUTPATIEN COMM[facility]TIY T [facility] 18862 [facility] [place] [facility] T VISIT ONCOLOGY 15 & MINUTES OFFICE 11636 [facility] MAR OUTPATIEN 5 5 PARTNERS T VISIT OF [place] 25 CO MINUTES OFFICE 58850 [facility] MYHAND OUTPATIEN 5 5 [place] [facility] T VISIT ONCOLOGY 15 & MINUTES [facility]OSP[facility] - 5 5 N OUTPATIEN COMMUNTIY T HOSPITA OFFICE 86013 TONY MCKEONPATIAUNG 5 5 [facility]BAR[facility] BARBARA T VISIT 15 MINUTES [facility]OSP[facility] - 5 5 [facility] OUTPATIEN INC T OFFICE 19304 TONY MCKEONPATIAUNG 5 5 [facility] BARBARA T VISIT 15 MINUTES [facility] - 5 5 N OUTPATIEN COMMUNTIY T HOSPITA OFFICE 14203 [facility] OUTPATIEN 5 5 [place] [facility] T VISIT ONCOLOGY 15 & MINUTES OFFICE 72748 [facility] MAR OUTPATIEN 5 5 PARTNERS T VISIT OF [place] 25 CO MINUTES OFFICE 51749 [facility] MAR OUTPATIEN 5 5 [facility] T [facility] [place] [facility] - 5 5 N OUTPATIEN COMMUNTIY T HOSPITA OFFICE 61527 [facility] MYHAND OUTPATIEN 5 5 [place] BARBARA T NEW 45 ONCOLOGY MINUTES & [facility] N [facility] 5 5 N [facility] - 5 5 N OUTPATIEN COMMUNTIY T HOSPITA OFFICE 73969 [facility] OUTPATIEN 5 5 N T NEW 45 NEUROLOGY MINUTES OFFICE 71770 [facility] MAR OUTPATIEN 5 5 PARTNERS T VISIT OF [place] 25 CO MINUTES OFFICE 79108 TONY JIMENEZ OUTPATIEN 5 5 BARBARA BARBARA T VISIT 15 MINUTES OFFICE 81719 TONY JIMENEZ OUTPATIEN 5 5 BARBARA BARBARA T VISIT 15 MINUTES OFFICE 45177 [facility] RENETTA OUTPATIEN 5 5 PHYSICIAN MAX T VISIT S GROUP 15 MINUTES OFFICE 41003 [facility]PAT[facility] 5 5 [facility] 5 HOSPITAL MINUTES [facility] - 5 5 [facility] OUTPATIEN INC T OFFICE 54614 [facility] J[facility]SON OUTPATIEN 5 5 MAX MAX T VISIT 15 MINUTES OFFICE 35551 LAILA LAILA OUTPATIEN 5 5 RENUKA RENUKA T VISIT 15 MINUTES [facility] - 5 5 [facility] OUTPATI[facility] INC T OFFICE 86018 CJ COOK MENG OUTPATIEN 5 5 [facility] 15 MINUTES OFFICE 59940 RENETTA DRIVERON OUTPATIEN 5 5 MAX MAX T VISIT 10 MINUTES OFFICE 42757 [facility]PAT[facility] 4 4 [facility] 5 HOSPITAL MINUTES P [facility] - 4 4 [facility] OUTPATIEN INC T OFFICE 37864 RENETTA DRIVERON OUTPATIEN 4 4 MAX MAX T VISIT 25 MINUTES OFFICE 66353 [facility] 4 4 [facility] 15 P MINUTES OFFICE 57829 RENETTA DRIVERON OUTPATIEN 4 4 MAX MAX T NEW 30 MINUTES OFFICE 32456 TONY JIMENEZ OUTPATIEN 4 4 BARBARA BARBARA T VISIT 15 MINUTES OFFICE 50729 TONY JIMENEZ OUTPATIEN 4 4 BARBARA BARBARA T VISIT 15 MINUTES OFFICE 27047 CJ FAN OUTPATIEN 4 4 [facility] 15 MINUTES OFFICE 57329 LAILA LAILA OUTPATIEN 4 4 RENUKA RENUKA T VISIT 25 MINUTES OFFICE 33955 TONY JIMENEZ OUTPATIEN 4 4 [facility]BAR[facility] BARBARA T VISIT 15 MINUTES [facility]Y 48572 [facility] JESSICA DEPARTMEN EMERGENCY T VISIT PHYS MODERATE SEVERITY EMERGENCY 09470 [facility] 4 4 DANA JESSICA DEPARTMEN EMERGENCY T VISIT PHYS HIGH/URGE NT SEVERITY OFFICE 79891 ARNOLD ARNOLD OUTPATIEN 4 4 BARBARA BARBARA T VISIT 15 MINUTES OFFICE 27533 LAILA ULLOA OUTPATIEN 4 4 RENUKA GRAYSON T VISIT 40 MINUTES OFFICE 85114 NEWNO[facility]OOK MENG OUTPATIEN 4 4 [facility] 15 MINUTES OFFICE 83914 [facility] OUTPATIEN 4 4 [facility] 10 P MINUTES OFFICE 23174 LAILA ULLOA OUTPATIEN 4 4 RENUKA RENUKA T VISIT 25 MINUTES OFFICE 36210 TONY JIMENEZ OUTPATIEN 4 4 BARBARA BARBARA T VISIT 15 MINUTES OFFICE 47758 TONY JIMENEZ OUTUZAIR 3 3 BARBARA BARBARA T VISIT 15 MINUTES OFFICE 03976 TONY JIMENEZ OUTPATIEN 3 3 BARBARA BARBARA T VISIT 15 MINUTES OFFICE 53664 [facility] OUTPATIEN 3 3 [facility] 10 P MINUTES OFFICE 35907 [facility] OUTPATIEN 3 3 [facility] 15 P MINUTES OFFICE 24186 TONY JIMENEZ OUTPATIAUNG 3 3 [facility]BARA BARBARA T VISIT 15 MINUTES OFFICE 57656 LAILA ULLOA OUTPATIEN 3 3 RENUKA GRAYSON T VISIT 25 MINUTES OFFICE 77787 [facility] OUTPATIEN 3 3 [facility] 15 P MINUTES OFFICE 39981 TONY STEWARD 3 3 BARBARA BARBARA T VISIT 15 MINUTES OFFICE 57591 TONY STEWARD 3 3 BARBARA BARBARA T VISIT 15 MINUTES OFFICE 97925 TONY STEWARD 3 3 BARBARA BARBARA T VISIT 15 MINUTES Emergency KELLY Rankin MD (ER) 3 19:35 3 20:11 [facility] - 3 3 [facility] OUTPATIEN INC T OFFICE 58873 TONY STEWARD 3 3 BARBARA BARBARA T VISIT 15 MINUTES EMERGENCY 80447 SERENA GOODRICH 3 3 EMERGENCY DEPARTMEN SERVICES T VISIT HIGH/URGE NT SEVERITY EMERGENCY 98012 [facility] 3 3 [facility] DEPARTMEN INC T VISIT LOW/MODER SEVERITY OFFICE 32891 LAILA ULLOA OUTPATIEN 3 3 RENUKA RENUKA T VISIT 15 MINUTES OFFICE 41826 TONY STEWARD 3 3 [facility]BARA BARBARA T VISIT 15 MINUTES OFFICE 38447 LAILA ULLOA OUTPATIEN 3 3 RENUKA GRAYSON T VISIT 15 MINUTES OFFICE 75401 TONY STEWARD 3 3 BARBARA BARBARA T VISIT 15 MINUTES OFFICE 71903 TONY STEWARD 2 2 BARBARA BARBARA T VISIT 15 MINUTES OFFICE 42918 TONY STEWARD 2 2 BARBARA BARBARA T VISIT 15 MINUTES OFFICE [id number] LAILA ULLOA OUTPATIEN 2 2 RENUKA RENUKA T VISIT 15 MINUTES OFFICE [id number] TONY STEWARD 2 2 BARBARA BARBARA T VISIT 15 MINUTES OFFICE [id number] TONY STEWARD 2 2 BARBARA BARBARA T VISIT 15 MINUTES OFFICE 32357 CJ FAN OUTPATIEN 2 2 VISION T VISIT 15 MINUTES OFFICE 16406 TONY STEWARD 2 2 BARBARA BARBARA T VISIT 15 MINUTES OFFICE 83706 TONY JIMENEZ OUTPATIAUNG 2 2 BARBARA BARBARA T VISIT 15 MINUTES OFFICE 76956 CJ FAN OUTPATIEN 2 2 VISION T VISIT 15 MINUTES OFFICE 41613 LAILA ZARATEHBURN OUTPATIEN 2 2 RENUKA RENUKA T VISIT 15 MINUTES OFFICE [id number] CLARE BARCENAS JR OUTPATIEN 1 1 [facility] 20 HOSPITAL MINUTES P OFFICE 71603 TONY JIMENEZ OUTPATIEN 1 1 BARBARA BARBARA T VISIT 15 MINUTES OFFICE 41442 LAILA ZARATEHBURN OUTPATIEN 1 1 RENUKA RENUKA T VISIT 15 MINUTES OFFICE 54373 LAILA LAILA OUTPATIEN 1 1 RENUKA RENUKA T VISIT 15 MINUTES OFFICE 61676 TONY JIMENEZ OUTPATIEN 1 1 BARBARA BARBARA T VISIT 15 MINUTES OFFICE 49173 LAILA LAILA OUTPATIEN 1 1 RENUKA RENUKA T VISIT 15 MINUTES OFFICE 42490 LAILA ZARATEHBURN OUTPATIEN 1 1 RENUKA RENUKA T [facility] 45 MINUTES [facility] - 1 1 [facility] OUTPATIEN [facility] T
--- OUTSIDE RECORDS SUMMARY | 2017-04-10 17:07 | External Medical Summary Rpt ---
Author Author , DANY SAENZ Address Unknown Phone [email or web address] Care Team Providers Care Group Leader [employer] Processing Name Role Phone SINGH ELVI, SINGH Unavailable Unavailable ELVI [facility] Unavailable Unavailable [place], [facility] [place] [facility] Unavailable Unavailable [facility], [facility] ARNOLD, ARNOLD Unavailable Unavailable ARNOLD BARBARA, ARNOLD Unavailable Unavailable BARBARA ARNOLD BARBARA, ARNOLD Unavailable Unavailable BARBARA TORI STA, TORI Unavailable Unavailable STA DUCKWORTH, DUCKWORTH Unavailable Unavailable CASPER BARBARA, CASPER Unavailable Unavailable BARBARA [facility] Unavailable Unavailable ONCOLOGY &, [facility] & [facility] TONY & Unavailable Unavailable DUBILIER, CHIPPS TONY & DUBILIER [facility], Unavailable Unavailable [facility] Unavailable Unavailable [facility], [facility] DEMI, Unavailable Unavailable [facility] DEMI NARINDER JR MARYANN, NARINDER Unavailable Unavailable JR MARYANN NIC[facility], Unavailable Unavailable [facility] Unavailable Unavailable [facility] WRIGHT ANNETTE, WRIGHT ANNETTE Unavailable Unavailable BOOM JESSICA, BOOM Unavailable Unavailable JESSICA [facility] Unavailable [facility], Unavailable [facility]available [facility] Unavailable Unavailable INC, [facility] Unavailable [facility]available HOSPITAL P, [facility]ITAL P COOK MENG, COOK MENG Unavailable Unavailable [facility], Unavailable Unavailable [facility] VIKTOR HOANG Unavailable Unavailable [facility] Un[facility] Unavailable [facility], [facility] Unavailable [...] [place]A MYHAND BARBARA, MYHAND Unavailable Unavailable BARBARA [facility] Unavailable Unavailable [facility], [facility] PSC [facility] Unavailable [facility]available [facility], [facility] PSC COLUNGA PUMA, COLUNGA Unavailable Unavailable PUMA CONNOLLY LAR, CONNOLLY LAR Unavailable Unavailable [facility], [facility], [facility] Unavailable Unavailable [facility], [facility] CHAVEZ, CHAVEZ Unavailable Unavailable CHAVEZ SHE, CHAVEZ Unavailable Unavailable SHE LAMBERT OSMIN, LAMBERT OSMIN Unavailable Unavailable SOKAN BAB, SOKAN BAB Unavailable Unavailable [facility] Un[facility] Unavailable [facility], [facility] Unavailable Unavailable [facility], [facility] KYRA SELWYN, KYRA Unavailable Unavailable SELWYN [facility] Unavailable Unavailable DEPT [facility], [facility] DE[facility] BILL [facility] Unavailable Unavailable DEPT BILL, [facility] DEPT BILL HIGH, HIGH Unavailable Unavailable HIGH MAR, HIGH MAR Unavailable Unavailable Purpose Continuity of Care Document - 01-10-2011 through 2016 Problems Code Diagnosis DOS Provider Status J301 ALLERGIC 12-21-2016 [facility] RHINITIS [facility] DUE TO [place] POLLEN J3089 OTHER 12-21-2016 [facility] ALL[facility]GIC [facility] RHINITIS [place] J4530 MILD 12-21-2016 [facility] PERSISTENT PART[facility] OF ASTHMA [place] UNCOMPLICAT ED Y61836 ALLERGY TO 12-21-2016 ALLERGY OTHER FOODS [facility] [place] K521 TOXIC 11-29-2016 [facility] COLITIS R002 PALPITATION 11-29-2016 [facility] R079 CHEST PAIN 11-29-2016 [facility] Z720 TOBACCO USE 11-29-2016 [facility] P R02879 CHOROIDAL 10-06-2016 [facility] RUPTURE SERV UNSPECIFIED FOUNDATION EYE [id number] GLAUC SEC 10-06-2016 [facility] TRAUMA SERV RT EYE FOUNDATION INDETERMINA TE STAGE Z961 PRESENCE OF 10-06-2016 [facility] INTRAOCULAR FOUNDATION LENS J209 ACUTE 09-14-2016 [facility]GY BRONCHITIS PARTNERS OF UNSPECIFIED [place] Z23 ENCOUNTER 08-10-2016 [facility] DEPT N BILL J0190 ACUTE 06-17-2016 TONY JIMENEZ SINUSITIS UNSPECIFIED J310 CHRONIC 05-20-2016 [facility] RHINITIS PARTN[facility] OF [place] I10 ESSENTIAL 03-18-2016 [facility] PRIMARY PARTNERS OF HYPERTENSIO [place] N J4520 MILD 03-18-2016 [facility] INTERMITTEN PARTNERS OF T ASTHMA [place] UNCOMPLICAT ED S218XKT OTHER 03-18-2016 [facility] ADVERSE PARTNERS OF FOOD [place] REACTIONS NEC SUBSEQUENT ENC E538 DEFICIENCY 01-26-2016 [facility] OF OTHER NEUROLOGY SPECIFIED B GROUP VITAMINS 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 [facility] 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 J3081 ALLERG 01-01-2016 [facility] RH[facility]IS [facility] D/T ANIMAL [place] CAT DOG HAIR & DANDER V82004 OTHER 12-31-2015 [facility] ELEVATED COMMUNTIY WHITE BLOOD HOSPITA CELL COUNT A630 ANOGENITAL 12-16-2015 [facility] PSC Z302 ENCOUNTER 12-16-2015 [facility] ON Y07538 MUSCLE 09-29-2015 [facility] SPASM OF NEUROLOGY BACK R748 ABNORMAL 08-04-2015 [facility] LEVELS OF COMMUNTIY OTHER SERUM HOSPITA ENZYMES R749 ABNORMAL 08-04-2015 [facility] ENZYME ONCOLOGY & LEVEL UNSPECIFIED L089 LOCAL INF 07-25-2015 AUSTENMARIE BARBARA THE SKIN & SUBCUTANEOU S TISSUE UNS M66322 PAIN IN 07-13-2015 [facility] RIGHT [facility]ICAL SHOULDER [facility] R0781 PLEURODYNIA 07-13-2015 [facility] [id number] CONTUSION 07-13-2015 TONY JIMENEZ UNS FRONT WALL THORAX INITIAL ENCNTR Z043 ENCOUNTER 07-13-2015 [facility] EXAM & MEDICAL OBSERVATION IMAGING ASS FOLLOW OT ACCIDENT M5032 OTH CERV 06-08-2015 [facility] [place] [facility] DEGENERATIO N MID-CERVICA L REGION R209 UNSPECIFIED 06-08-2015 [facility] COMMUNTIY DISTURBANCE HOSPITA S OF SKIN SENSATION Y96802 OTHER 06-08-2015 [facility] SYMPTOMS & COMMUNTIY SIGNS HOSPITA INVOLVING THE NS R938 ABNORMAL 06-08-2015 [facility] FIND ON DX COMMUNTIY IMAGING OTH HOSPITA SPEC BODY STRCT 2662 OTHER 06-01-2015 [facility] B-COMPLEX NEUROLOGY DEFICIENCIE S 7964 OTHER 06-01-2015 [facility]AL ABNORMAL [facility] & FINDING 4770 ALLERGIC 05-29-2015 [facility] RHINITIS PARTNERS OF DUE TO [place] POLLEN 4772 ALLERGIC 05-29-2015 [facility] RHINITIS PARTNERS OF DUE TO [place] ANIMAL HAIR AND DANDER 4778 ALLERGIC 05-29-2015 [facility] RHINITIS PARTNERS OF DUE TO [place] OTHER ALLERGEN 2704 DISTURBANCE 05-26-2015 [facility] S NEUROLOGY SULPHUR-JOHN PAUL R AMINO-ACID METABOLISM 55778 OTH 05-26-2015 [facility] SYMPTOMS NEUROLOGY INVLV NERV&MUSCUL OSKELETAL SYSTEMS 7820 DISTURBANCE 05-26-2015 [facility] OF SKIN NEUROLOGY SENSATION 7937 NONSPC ABN 05-26-2015 [facility] FINDNG RAD NEUROLOGY & OTH EXM MUSCULSKELT L SYS V1552 PERSONAL 05-18-2015 [facility] HISTORY OF COMMUNTIY TRAUMATIC HOSPITA BRAIN INJURY 4739 UNSPECIFIED 05-06-2015 [facility] SINUSITIS [facility]ERS OF [place] 9953 ALLERGY 05-06-2015 ALLERGY UNSPECIFIED PARTNERS OF NOT [place] ELSEWHERE CLASSIFIED 3829 UNSPECIFIED 04-11-2015 ARNOLD BARBARA OTITIS MEDIA 4619 ACUTE 04-11-2015 ARNOLD BARBARA SINUSITIS, UNSPECIFIED 4659 ACUTE URIS 03-28-2015 ARNOLD BARBARA OF UNSPECIFIED SITE 86812 [place] 03-03-2015 [facility] ASSOCIATED SERV WITH OCULAR FOUNDATION TRAUMA 31825 INDETERMINA 03-03-2015 [facility] MEDICAL TE STAGE SERV [facility] FOUNDATION 4779 ALLERGIC 02-05-2015 [facility] RH[facility] PHYSICIANS CAUSE GROUP UNSPECIFIED 61697 IMPOTENCE 12-30-2014 [facility] P 470 DEVIATED 11-13-2014 COMMUNITY NASAL ANESTH OF SEPTUM THE BLUE 33211 OTHER 11-11-2014 [facility] DISEASES OF [facility] P CAVITY AND SINUSES V7283 OTHER 11-11-2014 [place] SPECIFIED [facility] VE EXAMINATION 4730 CHRONIC 11-10-2014 [place] MAX MAXILLARY SINUSITIS 83796 OTHER 10-28-2014 LAILA CHRONIC [place] ALLERGIC CONJUNCTIVI TIS 38235 EXTRINSIC 10-28-2014 LAILA ASTHMA, RENUKA UNSPECIFIED 7840 HEADACHE 10-09-2014 [facility] 7842 SWELLING 10-09-2014 [facility] MASS OR MEDICAL LUMP IN IMAGING ASS HEAD AND NECK 41550 PRIMARY 09-23-2014 [facility] 4610 ACUTE 09-22-2014 R[place]ET[place] MAX MAXILLARY SINUSITIS 77974 UNSPECIFIED 08-26-2014 [place] VIRAL [facility] P 2163 [...] ASSOCIATES WITHOUT PSC MENTION OF COMPLICATIO N 23581 CONDYLOMA 07-30-2014 [facility] PSC 2382 NEOPLASM OF 07-30-2014 NEW [facility] CLINIC [facility] SKIN 0794 HUMAN 07-22-2014 [place] P[place] [facility] VIRUS IN HOSPITAL P CCE & UNS SITE 79774 PHOTOKERATI 06-30-2014 [place] MAX TIS 4660 ACUTE 06-23-2014 ARNOLD BARBARA BRONCHITIS 0539 HERPES 06-09-2014 ARNOLD BARBARA ZOSTER WITHOUT MENTION OF COMPLICATIO N 6929 CONTACT 06-09-2014 ARNOLD BARBARA DERMATITIS& OTHER ECZEMA DUE UNSPEC CAUSE 6931 DERMATITIS 04-17-2014 ALILA DUE TO FOOD [place] TAKEN INTERNALLY 7862 COUGH 04-17-2014 LAILA RENUKA 7821 RASH AND 03-19-2014 [facility] OTHER N EMERGENCY NONSPECIFIC PHYS SKIN ERUPTION E9050 VENOMOUS 03-19-2014 [facility] SNAKES&DONAVAN N EMERGENCY RDS PHYS CAUSE POISN&TOX REACT 10735 [place] 02-25-2014 [place] [facility] ST[facility] SERV UNSPECIFIED FOUNDATIO 02411 EXTRINSIC 02-03-2014 LAILA ASTHMA, RENUKA WITH EXACERBATIO N 62092 ACUT 10-17-2013 LAIL[facility] SUPPRATV [place] OTITIS MEDIA W/O SPONT RUP EARDRUM 4780 HYPERTROPHY 10-17-2013 LAIL[facility] OF NASAL [place] TURBINATES 64160 SLOWING OF 07-02-2013 [place] URINARY [facility] HOSPITAL P 96124 OTHER 05-29-2013 [facility] DISORDER OF PSC BLADDER 56541 HYPERTROPHY 05-14-2013 [place] PROSTATE [facility] W/UR OBST & HOSPITAL P OTH LUTS 47083 URINARY 05-14-2013 [place] HESITANCY [facility] P 67741 DYSFUNCTION 04-18-2013 LAILA OF [place] EUSTACHIAN TUBE 6011 CHRONIC 04-16-2013 [place] PROSTATITIS [facility] P 72716 UNSPECIFIED 03-29-2013 AUSTENMARIE JIMENEZ URETHRITIS 37826 HEAD 03-29-2013 PROFESSIONA INJURY, L REHAB UNSPECIFIED ASSOC PSC 22313 SIMPLE/UNSP 10-18-2012 LA[facility] ECIFIED [place] CHRONIC SEROUS OTITIS MEDIA 3823 UNSPECIFIED 09-17-2012 [facility] CHRONIC [place] SUPPURATIVE OTITIS MEDIA V7651 SPECIAL 05-01-2012 [place] SCREENING ANESTHESIA FOR [facility] MALIGNANT NEOPLASMS COLON 47006 ACUTE 03-15-2012 LA[facility] SEROUS [place] OTITIS MEDIA 42324 UNSPECIFIED 02-17-2012 TONY JIMENEZ INFECTIVE OTITIS EXTERNA 1105 DERMATOPHYT 09-19-2011 TONY JIMENEZ OSIS OF THE BODY 03129 ING TAL 09-19-2011 TONY JIMENEZ W/O MENTION OBST/GANGRE N UNILAT/UNSP EC 462 ACUTE 09-15-2011 LAIL[facility] PHARYNGITIS [place] 2298 BENIGN 07-07-2011 [facility] NEOPLASM OF [facility] P SPECIFIED SITES V7381 SPECIAL 07-07-2011 [facility] P HUMAN PAPILVIRUS 6869 UNSPEC 06-30-2011 TONY JIMENEZ LOCAL INFECTION SKIN&SUBCUT ANEOUS TISSUE 76040 OPEN ANGLE 06-21-2011 [place] [facility] WITH SERV BORDERLINE FOUNDATIO FINDINGS HIGH RISK 90036 ENTHESOPATH 03-18-2011 TONY JIMENEZ Y OF UNSPECIFIED SITE 4710 POLYP OF 01-10-2011 [facility] NASAL [place] CAVITY 62009 WHEEZING 01-10-2011 LAILA RENUKA 46777 ANAPHYLACTI 01-10-2011 [facility] [place] REACTION [facility]OS[facility] DUE TO INC PEANUTS V727 DIAGNOSTIC 01-10-2011 LAILA SKIN AND [place] SENSITIZATI ON TESTS K52.1 TOXIC GASTROENTER ITIS AND COLITIS R00.2 PALPITATION S Allergies, Adverse Reactions, Alerts Type Drug Allergy Food Allergy Adverse Reaction to Substance Substance Reaction Severity NUTS S-IAMIRP-STIA/THROAT Severe NUTS (FOOD) M-LOGKZT-JZOA/THROAT Severe Medications Na ND Rx Da Fi [...] Procedure DOS Code Location Performer Comment NITRIC 25929 ALL[facility] HIGH OXIDE 7 [facility] [place] DETERMINA TION DEMO&/BOZENA 42495 ALLERGY HIGH L OF PT 7 PARTNERS UTILIZ OF [place] AERSL CO GEN/NEB/I NHLR/IP BRNCDILAT 62978 ALLERGY HIGH RSPSE 7 PARTNERS SPMTRY OF [place] PRE&POST- CO BRNCDILAT ADMN ECG 08519 [facility] HENNESSY JR ROUTINE 7 [facility] W/LEAST P 12 LDS I&R ONLY RADIOLOGI 61598 [facility] C 7 MEDICAL EXAMINATI IMAGING ON CHEST ASS SINGLE VIEW FRONTAL CREATINE 40378 [facility] SP[facility] KINASE 7 [facility] [place] [place] [address] [facility] LIPASE 7 [facility] INC INC ECG 76027 [facility] ROUTINE 7 [facility] ECG INC INC W/LEAST 12 LDS TRCG ONLY W/O I&[place] [address] [facility] THYROID 7 [facility] STIMULATI INC INC NG HORMONE TSH COMPREHEN 27763 [facility] SIVE 7 [facility] [place] [address] [facility] AMYLASE 7 [facility] INC INC CREATINE 73745 [facility] KINASE MB 7 [facility] [place] [address] [facility] INFUSION 7 [facility] THERAPY/P INC INC ROPHYLAXI S /DX 1ST TO 1 [place] [address] [facility] TROPONIN 7 [facility] QUANTITAT INC INC LATIA BLOOD 04673 [facility] COUNT 7 [facility] COMPLETE INC INC AUTO&AUTO DIFRNTL WBC OPHTH 29785 ROL[facility]O CHAVEZ MEDICAL 7 MEDICAL XM&EVAL SERV COMPRHNSV FOUNDATIO ESTAB PT N 1/> COMPUTERI 41405 ROLANDO CHAVEZ ZED 7 MEDICAL OPHTHALMI SERV C IMAGING FOUNDATIO OPTIC N NERVE BRNCDILAT 59298 [facility] HIGH RSPSE 7 PARTNERS SPMTRY OF [place] PRE&POST- CO BRNCDILAT ADMN INJECTION J1040 ALLERGY HIGH 7 PARTNERS METHYLPRE OF [place] DNISOLONE CO ACETATE 80 MG DEMO&/BOZENA 04363 ALLERGY HIGH L OF PT 7 PARTNERS UTILIZ OF [place] AERSL CO GEN/NEB/I NHLR/IP NITRIC 86957 ALLERGY HIGH OXIDE 7 [facility] [place] DETERMINA TION IIV4 VACC 26049 [facility] S[facility]IT [facility] VIRUS 0.5 HLTH DEPT HLTH DEPT ML DOS BILL BILL FOR IM USE ADMINISTR G0008 [facility] ATION OF 6 [facility] DISTRICT INFLUENZA HLTH DEPT HLTH DEPT VIRUS BILL BILL VACCINE BRNCDILAT 25602 [facility]ER[facility] HIGH MAR RSPSE 6 PARTNERS SPMTRY OF [place] PRE&POST- CO BRNCDILAT ADMN NITRIC 44364 ALLERGY HIGH MAR OXIDE 6 PARTNERS OF [place] CO DETERMINA TION DEMO&/BOZENA 15594 ALLERGY HIGH MAR L OF PT 6 PARTNERS UTILIZ OF [place] AERSL CO GEN/NEB/I NHLR/IP DEMO&/BOZENA 45706 ALLERGY HIGH MAR L OF PT 6 PARTNERS UTILIZ OF [place] AERSL CO GEN/NEB/I NHLR/IP NITRIC 13014 ALLERGY HIGH MAR OXIDE 6 PARTNERS OF [place] CO DETERMINA TION BRNCDILAT 95068 ALLERGY HIGH MAR RSPSE 6 PARTNERS SPMTRY OF [place] PRE&POST- CO BRNCDILAT ADMN OPHTH 14048 [facility] 6 MEDICAL SHE XM&EVAL SERV COMPRHNSV FOUNDATIO ESTAB PT N 1/> PROF SVCS 89436 [facility]ER[facility] HIGH MAR ALLG 6 PARTNERS IMMNTX X OF [place] W/PRV CO ALLGIC XTRCS NJXS BLOOD 62986 [facility] COUNT 6 N N COMPLETE COMMUNTIY COMMUNTIY AUTO&AUTO HOSPITA HOSPITA DIFRNTL WBC PROF SVCS 86464 ALLERGY HIGH MAR ALLG 6 PARTNERS IMMNTX X OF [place] W/PRV CO ALLGIC XTRCS NJXS PREPJ& 14235 ALLERGY HIGH MAR ALLERGEN 6 PARTNERS IMMUNOTHE OF [place] RAPY CO 1/HEAD SILVERMAN ANTIGEN VASECTOMY 05187 [facility] UNI/BI 6 [facility] SPX CLINIC CLINIC W/POSTOP PSC PSC SEMEN EXAMS ANESTHESI 86739 ANESTHESI CONNOLLY LAR A MALE 6 A GENITALIA ASSOCIATE INCL S PSC OPEN URETHRAL PX DSTRJ 19449 [facility] LESION 6 [facility] PENIS CLINIC CLINIC SIMPLE PSC P[place]LECTRODE SICCATION PROF SV 00631 ALLERGY HIGH MAR ALLG 6 PARTNERS IMMNTX X OF [place] W/PRV CO ALLGIC XTRCS NJXS COLLECTIO 05018 [facility] MYHAND N VENOUS 6 [facility] BLOOD ONCOLOGY VENIPUNCT & URE CYANOCOBA 62520 [facility] JENNIFER 6 N N VITAMIN COMMUNTIY COMMUNTIY B-12 HOSPITA HOSPITA BLOOD 19106 [facility] COUNT 6 N N COMPLETE COMMUNTIY COMMUNTIY [place] [address] [facility] FOLIC 6 N N ACID COMMUNTIY COMMUNTIY SERUM HOSPITA HOSPITA BLOOD 57576 [facility] COUNT 6 N N SMEAR COMMUNTIY COMMUNTIY [facility] HOSPITA HOSPITA W/MNL DIFRNTL WBC COUNT OPH 40742 ROLANDO CHAVEZ MEDICAL 6 MEDICAL SHE XM&EVAL SERV INTERMEDI FOUNDATIO ATE ESTAB N PT VISUAL 61144 ROLANDO CHAVEZ FIELD XM 6 MEDICAL SHE UNI/BI SERV W/INTERP [place] [address] ALLERGY HIGH MAR ALLG 6 PARTNERS IMMNTX X OF [place] W/PRV CO ALLGIC XTRCS NJXS PROF SVCS 33284 ALLERGY HIGH MAR ALLG 5 PARTNERS IMMNTX X OF [place] W/PRV CO ALLGIC XTRCS NJXS NITRIC 74858 ALLERGY HIGH MAR OXIDE 5 [facility] OF [place] CO DETERMINA TION SPMTRY 57264 ALLERGY HIGH MAR W/VC 5 PARTNERS EXPIRATOR OF [place] Y PETRA CO W/WO MXML VOL VNTJ PROF [facility] 05008 ALLERGY HIGH MAR ALLG 5 PARTNERS IMMNTX X OF [place] W/PRV CO ALLGIC XTRCS NJXS BLOOD 40750 [facility] COUNT 5 N N SMEAR COMMUNTIY COMMUNTIY [facility] HOSPITA HOSPITA W/MNL DIFRNTL WBC COUNT BLOOD 92373 [facility] COUNT 5 N N COMPLETE COMMUNTIY COMMUNTIY AUTOMATED HOSPITA HOSPITA RADEX 49662 [place] NICHOLE SHOULDER 5 MEDICAL TAQUERIA COMPLETE IMAGING MINIMUM 2 ASS VIEWS RADEX 13423 [place] NICHOLE RIBS 5 MEDICAL TAQUERIA UNILATERA IMAGING L 2 VIEWS ASS RADEX 37541 [facility] RIBS UNI 5 MEM HOSP MEM HOSP W/POSTERO INC INC ANT CH MINIMUM 3 VIEWS BLOOD 42462 [facility] COUNT 5 N N COMPLETE COMMUNTIY COMMUNTIY AUTO&AUTO HOSPITA HOSPITA DIFRNTL WBC PREPJ& 13992 ALLERGY HIGH MAR ALLERGEN 5 PARTNERS IMMUNOTHE OF [place] RAPY CO 1/HEAD SILVERMAN ANTIGEN BRNCDILAT 28529 ALLERGY HIGH MAR RSPSE 5 PARTNERS SPMTRY OF [place] PRE&POST- CO BRNCDILAT ADMN SPMTRY 19058 ALLERGY ALLERGY W/VC 5 PARTNERS PARTNERS EXPIRATOR OF [place] OF [place] Y PETRA CO CO W/WO MXML VOL VNTJ PERCUTANE 59783 ALLERGY HIGH MAR OUS TESTS 5 PARTNERS OF [place] W/ALLERGE CO RENETTA EXTRACTS NITRIC 91091 ALLERGY HIGH MAR OXIDE 5 PARTNERS OF [place] CO DETERMINA TION COLLECTIO 28809 [facility] N VENOUS 5 N N BLOOD COMMUNTIY COMMUNTIY VENIPUNCT HOSPITA HOSPITA URE BLOOD 15159 [facility] COUNT 5 N N COMPLETE COMMUNTIY COMMUNTIY AUTO&AUTO HOSP[place] [address] [facility] HOMOCYSTE 5 N N INE COMMUNTIY COMMUNTIY HOSPITA HOSPITA ORGANIC 11831 [facility] ACID 1 5 N N QUANTITAT COMMUNTIY COMMUNTIY LATIA HOSPITA HOSPITA INJECTION J3420 [facility] OSMIN VIT B-12 5 N NEUROLOGY CYANOCOBA JENNIFER TO 1000 MCG MRI 87452 [facility] SPINAL 5 N N CANAL COMMUNTIY COMMUNTIY CERVICAL HOSPITA HOSPITA W/O & W/CONTR MATRL THERAPEUT 65608 [facility] OSMIN IC 5 N PROPHYLAC NEUROLOGY TIC/DX INJECTION SUBQ/IM INJECTION J3420 [facility] OSMIN VIT B-12 5 N NEUROLOGY CYANOCOBA JENNIFER TO 1000 MCG THERAPEUT 55660 [facility] OSMIN IC 5 N PROPHYLAC NEUROLOGY TIC/DX INJECTION SUBQ/IM INJECTION J3420 [facility] OSMIN VIT B-12 5 N NEUROLOGY CYANOCOBA JENNIFER TO 1000 MCG THERAPEUT 34017 [facility] OSMIN IC 5 N PROPHYLAC NEUROLOGY TIC/DX INJECTION SUBQ/IM PROF SVCS 19756 ALLERGY HIGH MAR ALLG 5 PARTNERS IMMNTX X OF [place] W/PRV CO ALLGIC XTRCS NJXS THERAPEUT 35027 [facility] IC 5 N PROPHYLAC NEUROLOGY TIC/DX INJECTION SUBQ/IM INJECTION J3420 [facility] VIT B-12 5 N NEUROLOGY CYANOCOBA JENNIFER TO 1000 MCG INJECTION J3420 [facility] VIT B-12 5 N NEUROLOGY CYANOCOBA JENNIFER TO 1000 MCG NEEDLE 23266 [facility] EMG EA 5 N EXTREMTY NEUROLOGY W/PARASPI NL AREA COMPLETE THERAPEUT 52403 [facility] IC 5 N PROPHYLAC NEUROLOGY TIC/DX INJECTION SUBQ/IM NERVE 50988 [facility] CONDUCTIO 5 N N STUDIES NEUROLOGY 9-10 STUDIES MRI 98832 [facility] SPINAL 5 N N CANAL COMMUNTIY COMMUNTIY CERVICAL HOSPITA HOSPITA W/O CONTRAST MATRL THERAPEUT 89101 [facility] IC 5 N PROPHYLAC NEUROLOGY TIC/DX INJECTION SUBQ/IM INJECTION J3420 [facility] VIT B-12 5 N NEUROLOGY CYANOCOBA JENNIFER TO 1000 MCG MRI BRAIN 87323 [facility] BRAIN 5 N N STEM W/O COMMUNTIY COMMUNTIY CONTRAST HOSPITA HOSPITA MATERIAL INJECTION J3420 [facility] VIT B-12 5 N NEUROLOGY CYANOCOBA JENNIFER TO 1000 MCG THERAPEUT 59979 [facility] IC 5 N PROPHYLAC NEUROLOGY TIC/DX INJECTION SUBQ/IM THERAPEUT 10131 [facility] IC 5 N PROPHYLAC NEUROLOGY TIC/DX INJECTION SUBQ/IM COLLECTIO 94790 [facility] N VENOUS 5 N N BLOOD COMMUNTIY COMMUNTIY VENIPUNCT HOSPITA HOSPITA URE INJECTION J3420 [facility] VIT B-12 5 N NEUROLOGY CYANOCOBA JENNIFER TO 1000 MCG ORGANIC 63944 [facility] ACID 1 5 N N QUANTITAT COMMUNTIY COMMUNTI[place] [address] [facility] HOMOCYSTE 5 N N INE COMMUNTIY COMMUNTIY HOSPITA HOSPITA BLOOD 29615 [facility] COUNT 5 N N COMPLETE COMMUNTIY COMMUNTIY AUTOMATED HOSPITA HOSPITA BLOOD 93206 [facility] COUNT 5 N N SMEAR COMMUNTIY COMMUNTIY MCRSCP HOSPITA HOSPITA W/[place] [address] [facility] PYRIDOXAL 5 N N COMMUNTIY COMMUNTIY [place] [address] [facility] FOLIC 5 N N ACID COMMUNTIY COMMUNTIY SERUM HOSPITA HOSPITA CYANOCOBA 36776 [facility] JENNIFER 5 N N VITAMIN COMMUNTIY COMMUNTIY B-12 HOSPITA HOSPITA PROTEIN 04418 [facility] ELECTROPH 5 N N ORETIC COMMUNTIY COMMUNTIY FRACTJ&QU [place] [address] [facility] THIAMINE- 5 N N VITAMIN COMMUNTIY COMMUNTIY B-1 HOSPITA HOSPITA COLLECTIO 27389 [facility] N VENOUS 5 N N BLOOD COMMUNTIY COMMUNTIY VENIPUN[place] [address] [facility] THYROID 5 N N STIMULATI COMMUNTIY COMMUNTIY NG HOSPITA HOSPITA HORMONE TSH PROF [facility] [address] ALLERGY HIGH MAR ALLG 5 PARTNERS IMMNTX X OF COTTO W/PRV CO ALLGIC XTRCS NJXS INJ J0702 ARNMARIE ARNMARIE BETAMETHA 5 BARBARA BARBARA SONE ACETATE & [place]PH[place] 3 [place] [address] LAILA LAILA ALLG 5 RENUKA RENUKA IMMNTX X W/PRV ALLGIC XTRCS NJXS COMPUTERI 55024 ROLANDO CHAVEZ ZED 5 MEDICAL SHE OPHTHALMI SERV C IMAGING FOUNDATIO OPTIC N NERVE OPHTH 96476 [facility] SHE XM&EVAL SERV COMPRHNSV FOUNDATIO ESTAB PT N 1/> PROF SVCS 30855 LAILA LAILA ALLG 5 RENUKA RENUKA IMMNTX X W/PRV ALLGIC XTRCS NJXS PROF SVCS 54861 LAILA LAILA ALLG 5 RENUKA RENUKA IMMNTX X W[place] [address] LAILA LAILA ALLG 5 RENUKA RENUKA IMMNTX X W/PRV ALLGIC XTRCS NJXS PROF SVCS 01067 LAILA LAILA ALLG 5 RENUKA RENUKA IMMNTX X W/PRV ALLGIC XTRCS NJXS ANESTHESI 01825 [facility] WRIGHT ANNETTE A NOSE & 5 ANESTH ACCESSORY OF THE SINUSES BLUE NOS BLOOD 06758 CLARE SPARKS COUNT 5 [facility] COMPLETE INC INC AUTO&AUTO DIFRNTL WBC ECG 19507 CLARE HENNESSY JR ROUTINE [address] [facility] W/LEAST P 12 LDS I&R ONLY ECG 49392 CLARE SPARKS ROUTINE 5 [facility] ECG INC INC W/LEAST 12 LDS TRCG ONLY W/O I&R COLLECTIO 75448 CLARE SPARKS N VENOUS 5 [facility] BLOOD INC INC VENIPUNCT URE PROF [facility] 11461 LAILA LAILA ALLG 5 RENUKA RENUKA IMMNTX X W/PRV ALLGIC XTRCS NJXS SPMTRY 11124 LAILA LAILA W/VC 5 RENUKA RENUKA EXPIRATOR Y PETRA W/[place] [address] CLARE SPARKS MAXILLOFA 5 [facility] CIAL W/O INC INC CONTRAST MATERIAL URNLS DIP 06997 CLARE SINGH 4 [facility] LET RGNT P NON-[place] [address] [facility] POLLOCK SURG 4 TONY & BARBARA PATHOLOGY DUBILIER GROSS&JESSICA ROSCOPIC [place] [id number] [facility] THERAPY/P INC INC ROPHYLAXI S /DX 1ST TO 1 HR THERAPEUT 52539 [facility] IC [facility] INJECTION INC INC IV PUSH EACH NEW DRUG ADJT TIS 19314 [facility] TRNS/REAR [facility] GMT INC INC F/C/C/M/N /A/G/H/F 10SQCM/< ANES 75795 [facility] INTEG 4 ANESTH SELWYN MUSC & OF THE NRV HEAD BLUE NECK&[place] [address] [facility] THERAPY INC INC PROPHYLAX IS/DX EA HOUR PROF [facility] 13822 LAILA LAILA ALLG 4 RENUKA RENUKA IMMNTX X W/PRV ALLGIC XTRCS NJXS ANESTHESI 56859 ANESTHESI COLUNGA A MALE 4 A PUMA GENITALIA ASSOCIATE INCL [place] [address] NEW LINDA SURG 4 [facility]INIC PSC GROSS&JESSICA ROSCOPIC EXAM DSTRJ 65390 NEW NEW LESION 4 [facility] CLINIC SIMPLE PSC PSC SURG EXCISION PROF [facility] 60652 LAILA LAILA ALLG 4 RENUKA RENUKA IMMNTX X W/PRV ALLGIC XTRCS NJXS PREPJ& 66208 LAILA LAILA ALLERGEN 4 RENUKA RENUKA IMMUNOTHE RAPY 1/HEAD SILVERMAN ANTIGEN PROF [facility] 82498 LAILA LAILA ALLG 4 RENUKA RENUKA IMMNTX X W/PRV ALLGIC XTRCS NJXS SPMTRY 27911 LAILA LAILA W/VC 4 RENUKA RENUKA EXPIRATOR Y PETRA W/WO MXML VOL VNTJ PROF [facility] 52381 LAILA LAILA ALLG 4 RENUKA RENUKA IMMNTX X W/PRV ALLGIC XTRCS NJXS PROF [facility] 25407 LAILA LAILA ALLG 4 RENUKA RENUKA IMMNTX X W/PRV ALLGIC XTRCS NJXS INJ J0702 TONY JIMENEZ BETAMETHA 4 BARBARA BARBARA SONE ACETATE & PHOSPHATE 3 MG OPHTH 33093 [facility] 4 MEDICAL SHE XM&EVAL SERV INTERMEDI FOUNDATIO ATE ESTAB PT GONIOSCOP 44236 [place] [facility] 4 MEDICAL SHE SEPARATE SERV PROCEDURE FOUNDATIO PRESSURIZ 54240 LAILA LAILA ED/NONPRE 4 RENUKA RENUKA SSURIZED INHALATIO N TREATMENT BRNCDILAT 18551 LAILA LAILA RSPSE 4 RENUKA RENUKA SPMTRY PRE&POST- BRNCDILAT ADMN INJECTION J2010 LAILA LAIAL 4 RENUKA RENUKA LINCOMYCI N HCL UP TO 300 MG INJECTION J1040 LAILA LAILA 4 RENUKA RENUKA METHYLPRE DNISOLONE ACETATE 80 MG DEMO&/BOZENA 89548 LAILA LAILA L OF PT 4 RENUKA RENUKA UTILIZ AERSL GEN/NEB/I NHLR/IP THERAPEUT 78118 LAILA LAILA IC 4 RENUKA RENUKA PROPHYLAC TIC/DX INJECTION SUBQ/IM PROF SVCS 18825 LAILA LAILA ALLG 4 RENUKA RENUKA IMMNTX X W/PRV ALLGIC XTRCS NJXS COMPUTERI 05242 CJ CORONA STEPHANIE [facility] C[facility] C IMAGING OPTIC NERVE PROF [facility] 60153 LAILA LAILA ALLG 4 RENUKA RENUKA IMMNTX X W/PRV ALLGIC XTRCS NJXS PROF SVCS 20764 LAILA LAILA ALLG 4 RENUKA RENUKA IMMNTX X W/PRV ALLGIC XTRCS NJXS PROF SVCS 10381 LAILA LAILA ALLG 4 RENUKA RENUKA IMMNTX X W/PRV ALLGIC XTRCS 1 NJX PROF SVCS 22964 LAILA LAILA ALLG 4 RENUKA RENUKA IMMNTX X W/PRV ALLGIC XTRCS NJXS THERAPEUT 49999 LAILA LAILA IC 4 RENUKA RENUKA PROPHYLAC TIC/DX INJECTION SUBQ/IM INJECTION J1040 LAILA LAILA 4 RENUKA RENUKA METHYLPRE DNISOLONE ACETATE 80 MG INJECTION J2010 LAILA LAILA 4 RENUKA RENUKA LINCOMYCI N HCL UP TO 300 MG INJECTION J0696 TONY JIMENEZ 4 BARBARA BARBARA CEFTRIAXO NE SODIUM PER 250 MG PROF SVCS 15015 LAILA LAILA ALLG 4 RENUKA RENUKA IMMNTX X W/PRV ALLGIC XTRCS NJXS INJECTION J0696 TONY JIMENEZ 3 BARBARA BARBARA CEFTRIAXO NE SODIUM PER 250 MG PROF SVCS 77335 LAILA LIALA ALLG 3 RENUKA RENUKA IMMNTX X W/PRV ALLGIC XTRCS NJXS PROF SVCS 81064 LAILA LAILA ALLG 3 RENUKA RENUKA IMMNTX X W/PRV ALLGIC XTRCS NJXS PREPJ& 07378 LAILA LAILA ALLERGEN 3 RENUKA RENUKA IMMUNOTHE RAPY 1/HEAD SILVERMAN ANTIGEN PROF SVCS 64775 LAILA LAILA ALLG 3 RENUKA RENUKA IMMNTX X W/PRV ALLGIC XTRCS NJXS PROF SVCS 92847 LAILA LAILA ALLG 3 RENUKA RENUKA IMMNTX X W/PRV ALLGIC XTRCS NJXS ANES 95624 ANESTHESI TORI TRANSURET 3 A STA HRAL ASSOCIATE W/URETHRO S PSC CYSTOSCOP Y NOS CYSTOURET 81197 NEW [facility] HROSCOPY 3 [facility] PSC PSC PROF SVCS 81286 LAILA LAILA ALLG 3 RENUKA RENUKA IMMNTX X W/PRV ALLGIC XTRCS NJXS URNLS DIP 96768 [facility] 3 [facility] LET RGNT P NON-AUTO W/O MICRSCP PROF SVCS 11822 LAILA LAILA ALLG 3 RENUKA RENUKA IMMNTX X W/PRV ALLGIC XTRCS NJXS PROF SVCS 51684 LAILA LAILA ALLG 3 RENUKA RENUKA IMMNTX X W/PRV ALLGIC XTRCS NJXS PROF SVCS 02178 LAILA LAILA ALLG 3 RENUKA RENUKA IMMNTX X W/PRV ALLGIC XTRCS NJXS PROF SVCS 53882 LAILA LAILA ALLG 3 RENUKA RENUKA IMMNTX X W/PRV ALLGIC XTRCS NJXS THERAPEUT 43997 LAILA LAILA IC 3 RENUKA RENUKA PROPHYLAC TIC/DX INJECTION SUBQ/IM INJECTION J1040 LAILA LAILA 3 RENUKA RENUKA METHYLPRE DNISOLONE ACETATE 80 MG URNLS DIP 96489 [facility] 3 [facility] LET RGNT P NON-AUTO W/O MICRSCP PROF [facility] 12844 LAILA LAILA ALLG 3 RENUKA RENUKA IMMNTX X W/PRV ALLGIC XTRCS NJXS THERAPEUT 52153 PROFESSIO CROSSFIEL IC PX 1/> 3 NAL REH[facility] D DEMI AREAS ASSOC EACH 15 PSC MIN EXERCISES THERAPEUT 73699 PROFESSIO CROSSFIEL ACTVITY 3 NAL REHAB D DEMI DIRECT PT ASSOC CONTACT PSC EACH 15 MIN THERAPEUT 80997 PROFESSIO CROSSFIEL IC PX 1/> 3 NAL REHAB D DEMI AREAS ASSOC EACH 15 PSC MIN EXERCISES THERAPEUT 24145 PROFESSIO CROSSFIEL IC PX 1/> 3 NAL REHAB D DEMI AREAS ASSOC EACH 15 PSC MIN EXERCISES PROF [facility] 12184 LAILA LAILA ALLG 3 RENUKA RENUKA IMMNTX X W/PRV ALLGIC XTRCS NJXS THERAPEUT 80798 PROFESSIO PROFESSIO IC PX 1/> 3 NAL REHAB NAL REHAB AREAS ASSOC ASSOC EACH 15 PSC PSC MIN EXERCISES THERAPEUT 88492 PROFESSIO CROSSFIEL IC PX 1/> 3 NAL REHAB D DEMI AREAS ASSOC EACH 15 PSC MIN EXERCISES THERAPEUT 98985 PROFESSIO CROSSFIEL ACTVITY 3 NAL REHAB D DEMI DIRECT PT ASSOC CONTACT PSC EACH 15 MIN THERAPEUT 80881 PROFESSIO CROSSFIEL IC PX 1/> 3 NAL REHAB D DEMI AREAS ASSOC EACH 15 PSC MIN EXERCISES THERAPEUT 34460 PROFESSIO CROSSFIEL IC PX 1/> 3 NAL REHAB D DEMI AREAS ASSOC EACH 15 PSC MIN EXERCISES PROF [facility] 52731 LAILA LAILA ALLG 3 RENUKA RENUKA IMMNTX X W/PRV ALLGIC XTRCS NJXS THERAPEUT 92804 PROFESSIO CROSSFIEL IC PX 1/> 3 NAL REHAB D DEMI AREAS ASSOC EACH 15 PSC MIN EXERCISES THERAPEUT 24917 PROFESSIO CROSSFIEL IC PX 1/> 3 NAL REHAB D DEMI AREAS ASSOC EACH 15 PSC MIN EXERCISES THERAPEUT 73959 PROFESSIO CROSSFIEL IC PX 1/> 3 NAL REHAB D DEMI AREAS ASSOC EACH 15 PSC MIN EXERCISES THERAPEUT 07695 PROFESSIO CROSSFIEL IC PX 1/> 3 NAL REHAB D DEMI AREAS ASSOC EACH 15 PSC MIN EXERCISES THERAPEUT 06386 PROFESSIO CROSSFIEL IC PX 1/> 3 NAL REHAB D DEMI AREAS ASSOC EACH 15 PSC MIN EXERCISES THERAPEUT 80915 PROFESSIO PROFESSIO IC PX 1/> 3 NAL REHAB NAL REHAB AREAS ASSOC ASSOC EACH 15 PSC PSC MIN EXERCISES THERAPEUT 95863 PROFESSIO PROFESSIO IC PX 1/> 3 NAL REHAB NAL REHAB AREAS ASSOC ASSOC EACH 15 PSC PSC MIN EXERCISES PROF SVCS 50008 LAILA LAILA ALLG 3 RENUKA RENUKA IMMNTX X W/PRV ALLGIC XTRCS NJXS THERAPEUT 28582 PROFESSIO CROSSFIEL IC PX 1/> 3 NAL REHAB D DEMI AREAS ASSOC EACH 15 PSC MIN EXERCISES PHYSICAL 31090 PROFESSIO CROSSFIEL THERAPY 3 NAL REHAB D DEMI EVALUATIO ASSOC N PSC PROF SVCS 70286 LAILA LAILA ALLG 3 RENUKA RENUKA IMMNTX X W/PRV ALLGIC XTRCS NJXS PROF SVCS 38887 LAILA LAILA ALLG 3 RENUKA RENUKA IMMNTX X W/PRV ALLGIC XTRCS NJXS PROF SVCS 03649 LAILA LAILA ALLG 3 RENUKA RENUKA IMMNTX X W/PRV ALLGIC XTRCS NJXS PROF SVCS 44634 LAILA LAILA ALLG 3 RENUKA RENUKA IMMNTX X W/PRV ALLGIC XTRCS NJXS PROF SVCS 86074 LAILA LAILA ALLG 3 RENUKA RENUKA IMMNTX X W/PRV ALLGIC XTRCS NJXS PROF [facility] 38394 LAILA LAILA ALLG 3 RENUKA RENUKA IMMNTX X W/PRV ALLGIC XTRCS NJXS PROF [facility] 24527 LAILA LAILA ALLG 3 RENUKA RENUKA IMMNTX X W/PRV ALLGIC XTRCS NJXS THERAPEUT 98309 [facility] PROPHYLAC INC INC TIC/DX INJECTION SUBQ/IM OPHTH 02942 [facility] 3 MEDICAL SHE XM&EVAL SERV INTERMEDI FOUNDATIO ATE ESTAB PT PROF [facility] 50650 LAILA LAILA ALLG 3 RENUKA RENUKA IMMNTX X W/PRV ALLGIC XTRCS NJXS PROF [facility] 66598 LAILA LAILA ALLG 3 RENUKA RENUKA IMMNTX X W/PRV ALLGIC XTRCS NJXS PREPJ& 88596 LAILA LAILA ALLERGEN 3 RENUKA RENUKA IMMUNOTHE RAPY 1/HEAD SILVERMAN ANTIGEN PROF [facility] 16084 LAILA LAILA ALLG 3 RENUKA RENUKA IMMNTX X W/PRV ALLGIC XTRCS NJXS PROF [facility] 94551 LAILA LAILA ALLG 3 RENUKA RENUKA IMMNTX X W/PRV ALLGIC XTRCS NJXS PROF [facility] 53069 LAILA LAILA ALLG 3 RENUKA RENUKA IMMNTX X W/PRV ALLGIC XTRCS NJXS PROF [facility] 29560 LAILA LAILA ALLG 2 RENUKA RENUKA IMMNTX X W/PRV ALLGIC XTRCS NJXS PROF [facility] 71097 LAILA LAILA ALLG 2 RENUKA RENUKA IMMNTX X W/PRV ALLGIC XTRCS NJXS PROF [facility] 29922 LAILA LAILA ALLG 2 RENUKA RENUKA IMMNTX X W/PRV ALLGIC XTRCS NJXS INJ J0702 TONY JIMENEZ BETAMETHA 2 BARBARA BARBARA SONE ACETATE & PHOSPHATE 3 [place] [address] LAILA LAILA ALLG 2 RENUKA RENUKA IMMNTX X W/PRV ALLGIC XTRCS NJXS PROF SVCS 75996 LAILA LAILA ALLG 2 RENUKA RENUKA IMMNTX X W/PRV ALLGIC XTRCS NJXS INJ J0702 TONY HOODMETHA 2 BARBARA BARBARA SONE ACETATE & PHOSPHATE 3 MG PROF SVCS 63706 LAILA LAILA ALLG 2 RENUKA RENUKA IMMNTX X W/PRV ALLGIC XTRCS NJXS PROF SVCS 94965 LAILA LAILA ALLG 2 RENUKA RENUKA IMMNTX X W/PRV ALLGIC XTRCS NJXS PROF SVCS 86061 LAILA LAILA ALLG 2 RENUKA RENUKA IMMNTX X W/PRV ALLGIC XTRCS NJXS PROF SVCS 31589 LAILA LAILA ALLG 2 RENUKA RENUKA IMMNTX X W/PRV ALLGIC XTRCS NJXS PROF SVCS 34831 LAILA LAILA ALLG 2 RENUKA RENUKA IMMNTX X W/PRV ALLGIC XTRCS NJXS PROF SVCS 09135 LAILA LAILA ALLG 2 RENUKA RENUKA IMMNTX X W/PRV ALLGIC XTRCS NJXS PROF SVCS 10568 LAILA LAILA ALLG 2 RENUKA RENUKA IMMNTX X W/PRV ALLGIC XTRCS NJXS ANES 08604 SUBURBAN CASPER LOWER 2 ANESTHESI BARBARA INTESTINE A PSC ENDOSCOPY DISTAL DUODENUM PROF SVCS 84650 LAILA LAILA ALLG 2 RENUKA RENUKA IMMNTX X W/PRV ALLGIC XTRCS NJXS PROF SVCS 18573 LAILA LAILA ALLG 2 RENUKA RENUKA IMMNTX X W/PRV ALLGIC XTRCS NJXS PROF SVCS 67889 LAILA LAILA ALLG 2 RENUKA RENUKA IMMNTX X W/PRV ALLGIC XTRCS NJXS PROF SVCS 64035 LAILA LAILA ALLG 2 RENUKA RENUKA IMMNTX X W/PRV ALLGIC XTRCS NJXS THERAPEUT 92661 LAILA LAILA IC 2 RENUKA RENUKA PROPHYLAC TIC/DX INJECTION SUBQ/IM INJECTION J1040 LAILA LAILA 2 RENUKA RENUKA METHYLPRE DNISOLONE ACETATE [address] [facility] 31160 LAILA LAILA ALLG 2 RENUKA RENUKA IMMNTX X W/PRV ALLGIC XTRCS NJXS PROF [facility] 74272 LAILA LAILA ALLG 2 RENUKA RENUKA IMMNTX X W/PRV ALLGIC XTRCS NJXS PROF [facility] 27578 LAILA LAILA ALLG 2 RENUKA RENUKA IMMNTX X W/PRV ALLGIC XTRCS NJXS OPHTH 24373 [facility] 2 MEDICAL SHE XM&EVAL SERV INTERMEDI FOUNDATIO ATE ESTAB PT COMPUTERI 32432 ROLANDO CHAVEZ ZED 2 MEDICAL SHE OPHTHALMI SERV C IMAGING FOUNDATIO OPTIC NERVE PROF [facility] 33906 LAILA LAILA ALLG 2 RENUKA RENUKA IMMNTX X W/PRV ALLGIC XTRCS NJXS PROF [facility] 73008 LAILA LAILA ALLG 2 RENUKA RENUKA IMMNTX X W/PRV ALLGIC XTRCS NJXS PROF [facility] 63387 LAILA LAILA ALLG 2 RENUKA RENUKA IMMNTX X W/PRV ALLGIC XTRCS NJXS PREPJ& 11832 LAILA LAILA ALLERGEN 2 RENUKA RENUKA IMMUNOTHE RAPY 1/HEAD SILVERMAN ANTIGEN PROF [facility] 70181 LAILA LAILA ALLG 2 RENUKA RENUKA IMMNTX X W/PRV ALLGIC XTRCS NJXS PROF [facility] 41184 LAILA LAILA ALLG 2 RENUKA RENUKA IMMNTX X W/PRV ALLGIC XTRCS NJXS PROF [facility] 95324 LAILA LAILA ALLG 2 RENUKA RENUKA IMMNTX X W/PRV ALLGIC XTRCS NJXS PROF [facility] 08338 LAILA LAILA ALLG 2 RENUKA RENUKA IMMNTX X W/PRV ALLGIC XTRCS NJXS PROF [facility] 74344 LAILA LAILA ALLG 2 RENUKA RENUKA IMMNTX X W/[place] [address] LAILA LAILA ALLG 2 RENUKA RENUKA IMMNTX X W/[place] [address] LAILA LAILA ALLG 2 RENUKA RENUKA IMMNTX X W/[place] [address] LAIAL LAILA ALLG 2 RENUKA RENUKA IMMNTX X W/[place] [address] LAILA LAILA ALLG 2 RENUKA RENUKA IMMNTX X W/PRV ALLGIC XTRCS NJXS PROF [facility] 31386 LAILA LAILA ALLG 2 RENUKA RENUKA IMMNTX X W/PRV ALLGIC XTRCS NJXS PROF [facility] 56531 LAILA LAILA ALLG 2 RENUKA RENUKA IMMNTX X W/PRV ALLGIC XTRCS NJXS PREPJ& 86184 LAILA LAILA ALLERGEN 2 RENUKA RENUKA IMMUNOTHE RAPY 1/HEAD SILVERMAN ANTIGEN PROF [facility] 46475 LAILA LAILA ALLG 2 RENUKA RENUKA IMMNTX X W/PRV ALLGIC XTRCS NJXS PROF [facility] 44855 LAILA LAILA ALLG 2 RENUKA RENUKA IMMNTX X W/[place] [address] LAILA LAILA ALLG 2 RENUKA RENUKA IMMNTX X W/[place] [address] LAILA LAILA ALLG 2 RENUKA RENUKA IMMNTX X W/[place] [address] LIALA LAILA ALLG 2 RENUKA RENUKA IMMNTX X W/[place] [address] LAILA LAILA ALLG 2 RENUKA RENUKA IMMNTX X W/[place] [address] LAILA LAILA ALLG 2 RENUKA RENUKA IMMNTX X W/PRV ALLGIC XTRCS NJXS PROF SVCS 73421 LAILA LAILA ALLG 2 RENUKA RENUKA IMMNTX X W/PRV ALLGIC XTRCS NJXS PREPJ& 97275 LAILA LAILA ALLERGEN 2 RENUKA RENUKA IMMUNOTHE RAPY 1/HEAD SILVERMAN ANTIGEN PROF SVCS 04035 LAILA LAILA ALLG 2 RENUKA RENUKA IMMNTX X W/[place] [address] LAILA LAILA ALLG 1 RENUKA RENUKA IMMNTX X W/PRV ALLGIC XTRCS NJXS PROF SVCS 14971 LAILA LAILA ALLG 1 RENUKA RENUKA IMMNTX X W/[place] [address] LAILA LAILA ALLG 1 RENUKA RENUKA IMMNTX X W/[place] [address] LAILA LAILA ALLG 1 RENUKA RENUKA IMMNTX X W/[place] [address] LAILA LAILA ALLG 1 RENUKA RENUKA IMMNTX X W/[place] [address] LAILA LAILA ALLG 1 RENUKA RENUKA IMMNTX X W/[place] [address] LAILA LAILA ALLG 1 RENUKA RENUKA IMMNTX X W/PRV ALLGIC XTRCS NJXS PROF SVCS 18108 LAILA LAILA ALLG 1 RENUKA RENUKA IMMNTX X W/PRV ALLGIC XTRCS NJXS PROF SVCS 77141 LAILA LAILA ALLG 1 RENUKA RENUKA IMMNTX X W/[place] [address] LAILA LAILA ALLG 1 RENUKA RENUKA IMMNTX X W/PRV ALLGIC XTRCS NJXS PROF SVCS 96023 LAILA LAILA ALLG 1 RENUKA RENUKA IMMNTX X W/PRV ALLGIC XTRCS NJXS [facility] 52719 [facility] 1 MEDICAL SHE XM&EVAL SERV COMPRHNSV FOUNDATIO ESTAB PT 1/> [place] [address] LAILA LAILA ALLG 1 RENUKA RENUKA IMMNTX X W/PRV ALLGIC XTRCS NJXS THERAPEUT 92966 LAILA LAILA IC 1 RENUKA RENUKA PROPHYLAC TIC/DX INJECTION SUBQ/IM INJECTION J1040 LAILA LAILA 1 RENUKA RENUKA METHYLPRE DNISOLONE ACETATE 80 MG PREPJ& 84498 LAILA LAILA ALLERGEN 1 RENUKA RENUKA IMMUNOTHE RAPY 1/HEAD SILVERMAN ANTIGEN PROF SVCS 82472 LAILA LAILA ALLG 1 RENUKA RENUKA IMMNTX X W/PRV ALLGIC XTRCS NJXS PROF SVCS 81974 LAILA LAILA ALLG 1 RENUKA RENUKA IMMNTX X W/PR[place] [address] LAILA LAILA ALLG 1 RENUKA RENUKA IMMNTX X W/PRV ALLGIC XTRCS NJXS PROF SVCS 39770 LAILA LAILA ALLG 1 RENUKA RENUKA IMMNTX X W/PRV ALLGIC XTRCS NJXS PROF SVCS 48062 LAILA LAILA ALLG 1 RENUKA RENUKA IMMNTX X W/PRV ALLGIC XTRCS NJXS THERAPEUT 99020 LAILA LAILA IC 1 ERNUKA RENUKA PROPHYLAC TIC/DX INJECTION SUBQ/IM INJECTION J1040 LAILA LAILA 1 RENUKA RENUKA METHYLPRE DNISOLONE ACETATE 80 MG INJECTION J2010 LAILA LAILA 1 RENUKA RENUKA LINCOMYCI N HCL UP TO 300 MG PROF SVCS 77257 LAILA LAILA ALLG 1 RENUKA RENUKA IMMNTX X W/PRV ALLGIC XTRCS NJXS PROF SVCS 07487 LAILA LAILA ALLG 1 RENUKA RENUKA IMMNTX X W/PRV ALLGIC XTRCS NJXS PROF SVCS 60218 LAILA LAILA ALLG 1 RENUKA RENUKA IMMNTX X W/PRV ALLGIC XTRCS NJXS PROF [facility] 99716 LAILA LAILA ALLG 1 RENUKA RENUKA IMMNTX X W/PRV ALLGIC XTRCS NJXS PREPJ& 27702 LAILA LAILA ALLERGEN 1 RENUKA RENUKA IMMUNOTHE RAPY 1/HEAD SILVERMAN ANTIGEN PROF [facility] 21695 LAILA LAILA ALLG 1 RENUKA RENUKA IMMNTX X W/PRV ALLGIC XTRCS NJXS DEMO&/BOZENA 47833 LAILA LAILA L OF PT 1 RENUKA GRAYSON UTILIZ AERSL GEN/NEB/I NHLR/IP COLLECTIO 72082 [facility] N VENOUS 1 [facility] BLOOD INC INC VENIPUNCT URE BRNCDILAT 37260 LAILA LAILA RSPSE 1 RENUKA RENUKA SPMTRY PRE&POST- BRNCDILAT ADMN ALBUTEROL J7620 LAILA LAILA TO 2.5 1 RENUKA RENUKA MG & IPRATROPI UM BROM TO 0.5 MG PERCUTANE 24526 LAILA LAILA OUS TESTS 1 RENUKA RENUKA W/ALLERGE RENETTA EXTRACTS INTRACUTA 72187 LAILA LAILA NEOUS 1 RENUKA RENUKA TESTS W/ALLERGE RENETTA EXTRACTS ALLERGEN 26669 [facility] SP[facility]KS SPECIFIC 1 [facility] IGE INC INC WILIAN/SEMI WILIAN EA ALLERGEN Encounters Encounter Start End Date Code Location Performer Type Date OFFICE 30586 [facility] OUTPATIEN 7 7 [facility] [place] 25 CO MINUTES [facility] OUTPATIEN INC T EMERGENCY 72333 MECCA HOANG DEPT 7 7 PHYSICIAN VISIT S, PLLC HIGH SEVERITY& THREAT [facility] EMERGENCY 44339 [facility] 7 7 [facility] DEPARTMEN INC T VISIT MODERATE SEVERITY OFFICE 47015 [facility] HIGH OUTPATIEN 7 7 PARTNERS T VISIT OF [place] 40 CO MINUTES OFFICE 20113 TONY JIMENEZ OUTPATIEN 7 7 T VISIT 15 MINUTES OFFICE 34162 TONY JIMENEZ OUTPATIEN 6 6 BARBARA BARBARA T VISIT 15 MINUTES OFFICE 03863 [facility] HIGH MAR OUTPATIEN 6 6 PARTNERS T VISIT OF [place] 25 CO MINUTES OFFICE 73202 TONY JIMENEZ OUTPATIEN 6 6 BARBARA BARBARA T VISIT 15 MINUTES OFFICE 38511 [facility] HIGH MAR OUTPATIEN 6 6 PARTNERS T VISIT OF [place] 25 CO MINUTES OFFICE 89316 [facility] OUTPATI[facility] 6 6 N T VISIT NEUROLOGY 10 MINUTES OFFICE 76299 [facility] OUTPATIEN 6 6 [place] T VISIT ONCOLOGY 15 & [facility]UTES [facility] N OUTPATIEN COMMUNTIY T HOSPITA OFFICE 62258 [facility] OUTPATIEN 6 6 N T VISIT NEUROLOGY 25 MINUTES [facility] 6 6 N OUTPATIEN COMMUNTIY T HOSPITA OFFICE 32847 [facility] [place] T VISIT ONCOLOGY 15 & MINUTES OFFICE 71828 [facility] OUTPATIEN 5 5 PARTNERS T VISIT OF [place] 25 CO MINUTES OFFICE 80734 [facility] OUTPATIEN 5 5 [place] T VISIT ONCOLOGY 15 & MINUTES [facility] - 5 5 N OUTPATIEN COMMUNTIY T HOSPITA OFFICE 43837 TONY MCKEONPATIAUNG 5 5 BARBARA BARBARA T VISIT 15 MINUTES [facility] - 5 5 [facility] OUTPATIEN INC T OFFICE 16956 TONY MCKEONPATIAUNG 5 5 ABRBARA BARBARA T VISIT 15 MINUTES [facility]OS[facility] - 5 5 N OUTPATIEN COMMUNTIY T HOSPITA OFFICE 09074 [facility] OUTPATIEN 5 5 [place] T VISIT ONCOLOGY 15 & MINUTES OFFICE 64329 [facility] OUTPATIEN 5 5 PARTNERS T VISIT [facility] [place] 25 CO MINUTES OFFICE 59243 [facility] OUTPATIEN 5 5 [facility] T VISIT [facility] [place] 25 CO MINUTES [facility] 5 5 N OUTPATIEN COMMUNTIY T HOSPITA OFFICE 01384 [facility] OUTPATIEN 5 5 [place] BARBARA T NEW 45 ONCOLOGY MINUTES & [facility] 5 N OUTPATIEN COMMUNTIY T HOSPITA OFFICE 69786 [facility] OUTPATIEN 5 5 N T NEW 45 NEUROLOGY MINUTES OFFICE 41105 [facility] MAR OUTPATIEN 5 5 PARTNERS T VISIT OF [place] 25 CO MINUTES OFFICE 37433 TONY JIMENEZ OUTPATIEN 5 5 BARBARA BARBARA T VISIT 15 MINUTES OFFICE 72306 TONY JIMENEZ OUTPATIEN 5 5 BARBARA BARBARA T VISIT 15 MINUTES OFFICE 62001 [facility] RENETTA OUTPATIEN 5 5 PHYSICIAN MAX T VISIT S GROUP 15 MINUTES OFFICE 43573 [facility] 5 5 [facility] MIN[facility]ES [facility] T OFFICE 32990 [facility] OUTPATIEN 5 5 MAX MAX T VISIT 15 MINUTES OFFICE 18359 LAILA LAILA OUTPATIEN 5 5 RENUKA RENUKA T VISIT 15 MINUTES [facility] - [facility] 5 [facility] T OFFICE 13404 [facility] MENG OUTPATIEN 5 5 [facility] 15 MINUTES OFFICE 59872 RENET[facility] DRIVERON OUTPATIEN 5 5 MAX MAX T VISIT 10 MINUTES OFFICE 34741 [facility] 4 4 [facility] 5 HOSPITAL MINUTES P [facility] - 4 4 [facility] INC T OFFICE 08537 [facility] DRIVERON OUTPATIEN 4 4 MAX MAX T VISIT 25 MINUTES OFFICE 97149 [facility] 4 4 [facility] 15 P MINUTES OFFICE 36739 [facility] DRIVERON OUTPATIEN 4 4 MAX MAX T NEW 30 MINUTES OFFICE 69386 TONY JIMENEZ OUTPATIEN 4 4 BARBARA BARBARA T VISIT 15 MINUTES OFFICE 06177 TONY JIMENEZ OUTPATIEN 4 4 BARBARA BARBARA T VISIT 15 MINUTES OFFICE 32558 [facility] FAN OUTPATIEN 4 4 [facility] 15 MINUTES OFFICE 23672 LAILA LAILA OUTPATIEN 4 4 RENUKA RENUKA T VISIT 25 MINUTES OFFICE 73547 TONY JIMENEZ OUTPATIEN 4 4 BARBARA BARBARA T VISIT 15 MINUTES EMERGENCY 58248 [facility] 4 4 DANA JESSICA DEPARTMEN EMERGENCY T VISIT PHYS MODERATE SEVERITY EMERGENCY 09651 [facility] 4 4 DANA JESSICA DEPARTMEN EMERGENCY T VISIT PHYS HIGH/URGE NT SEVERITY OFFICE 72056 ARNOLD ARNOLD OUTPATIEN 4 4 BARBARA BARBARA T VISIT 15 MINUTES OFFICE 58705 LAILA ULLOA OUTPATIEN 4 4 RENUKA GRAYSON T VISIT 40 MINUTES OFFICE 71418 NEWNOEMI COOK MENG OUTPATIEN 4 4 [facility] 15 MINUTES OFFICE 99108 [facility] OUTPATIEN 4 4 [facility] 10 P MINUTES OFFICE 24125 LAILA ULLOA OUTPATIEN 4 4 RENUKA RENUKA T VISIT 25 MINUTES OFFICE 32639 TONY JIMENEZ OUTPATIEN 4 4 BARBARA BARBARA T VISIT 15 MINUTES OFFICE 63723 TONY JIMENEZ OUTUZAIR 3 3 BARBARA BARBARA T VISIT 15 MINUTES OFFICE 42395 TONY JIMENEZ OUTPATIEN 3 3 BARBARA BARBARA T VISIT 15 MINUTES OFFICE 11445 [facility] OUTPATIEN 3 3 [facility] 10 P MINUTES OFFICE 09606 [facility] OUTPATIEN 3 3 [facility] 15 P MINUTES OFFICE 00831 TONY JIEMNEZ OUTPATIAUNG 3 3 BARBARA BARBARA T VISIT 15 MINUTES OFFICE 19081 LAILA ULLOA OUTPATIEN 3 3 RENUKA GRAYSON T VISIT 25 MINUTES OFFICE 06240 [facility] OUTPATIEN 3 3 [facility] 15 P MINUTES OFFICE 47946 TONY STEWARD 3 3 BARBARA BARBARA T VISIT 15 MINUTES OFFICE 32725 TONY STEWARD 3 3 BARBARA BARBARA T VISIT 15 MINUTES OFFICE 28686 TONY STEWARD 3 3 BARBARA BARBARA T VISIT 15 MINUTES Emergency KELLY Rankin MD (ER) 3 19:35 3 20:11 [facility] CL[facility] - 3 3 [facility] OUTPATIEN INC T OFFICE 31197 TONY STEWARD 3 3 BARBARA BARBARA T VISIT 15 MINUTES EMERGENCY 68620 [facility] 3 3 [facility]ERGENCY DEPART[facility] SERVICES T VISIT HIGH/URGE NT SEVERITY EMERGENCY 20541 [facility] 3 3 [facility] DEPARTMEN [facility] T VISIT LOW/MODER SEVERITY OFFICE 99230 LAILA ULLOA OUTPATIEN 3 3 RENUKA RENUKA T VISIT 15 MINUTES OFFICE 06608 TONY STEWARD 3 3 BARBARA BARBARA T VISIT 15 MINUTES OFFICE 87227 LAILA ULLOA OUTPATIEN 3 3 RENUKA GRAYSON T VISIT 15 MINUTES OFFICE 99579 TONY STEWARD 3 3 BARBARA BARBARA T VISIT 15 MINUTES OFFICE 07400 TONY STEWARD 2 2 BARBARA BARBARA T VISIT 15 MINUTES OFFICE 37831 TONY STEWARD 2 2 BARBARA BARBARA T VISIT 15 MINUTES OFFICE 03900 LAILA ULLOA OUTPATIEN 2 2 RENUKA RENUKA T VISIT 15 MINUTES OFFICE 86631 TONY STEWARD 2 2 BARBARA BARBARA T VISIT 15 MINUTES OFFICE 64508 TONY STEWARD 2 2 BARBARA BARBARA T VISIT 15 MINUTES OFFICE 73673 CJ FAN OUTPATIEN 2 2 VISION T VISIT 15 MINUTES OFFICE 89082 TONY STEWARD 2 2 BARBARA BARBARA T VISIT 15 MINUTES OFFICE 36154 TONY JIMEENZ OUTPATIAUNG 2 2 BARBARA BARBARA T VISIT 15 MINUTES OFFICE 93421 CJ FAN OUTPATIEN 2 2 VISION T VISIT 15 MINUTES OFFICE 25936 LAILA ZARATEHBURN OUTPATIEN 2 2 RENUKA RENUKA T VISIT 15 MINUTES OFFICE 22135 [facility] BARCENAS JR OUTPATIEN 1 1 [facility] 20 HOSPITAL MINUTES P OFFICE 50366 TONY JIMENEZ OUTPATIEN 1 1 BARBARA BARBARA T VISIT 15 MINUTES OFFICE 10965 LAILA ZARATEHBURN OUTPATIEN 1 1 RENUKA RENUKA T VISIT 15 MINUTES OFFICE 04162 LAILA LAILA OUTPATIEN 1 1 RENUKA RENUKA T VISIT 15 MINUTES OFFICE 79702 TONY JIMENEZ OUTPATIEN 1 1 BARBARA BARBARA T VISIT 15 MINUTES OFFICE 38864 LAILA LAILA OUTPATIEN 1 1 RENUKA RENUKA T VISIT 15 MINUTES OFFICE 63286 LAILA ZARATEHBURN OUTPATIEN 1 1 RENUKA RENUKA T [facility] 45 MINUTES HOSPITAL CLARE - 1 1 [facility] T
--- OUTSIDE RECORDS SUMMARY | 2017-04-10 17:11 | External Medical Summary Rpt ---
Author Author , DANY Organization DANY Address Unknown Phone [email or web address] Care Team Providers Care Appraiser [employer] Name Role Phone SINGH ELVI, SINGH Unavailable Unavailable ELVI [facility] Unavailable Unavailable [place], [facility] [place] [facility] Unavailable Unavailable [facility], [facility] ARNOLD, ARNOLD Unavailable Unavailable ARNOLD BARBARA, ARNOLD Unavailable Unavailable BARBARA ARNOLD BARBARA, ARNOLD Unavailable Unavailable BARBARA DUCKWORTH, DUCKWORTH Unavailable Unavailable CASPER BARBARA, CASPER Unavailable Unavailable BARBARA [facility] Unavailable Unavailable ONCOLOGY &, [facility] & CHIPPS TONY & Unavailable Unavailable DUBILIER, CHIPPS TONY & DUBILIER [facility], Unavailable Unavailable [facility] Unavailable Unavailable THE [facility], [facility] DEMI, Unavailable Unavailable [facility] NARINDER JR MARYANN, NARINDER Unavailable Unavailable JR MARYANN [facility], Unavailable Unavailable [facility] Un[facility] Un[facility], [facility] WRIGHT ANNETTE, WRIGHT ANNETTE Unavailable Unavailable BOOM JESSICA, BOOM Unavailable Unavailable JESSICA [facility] Unavailable Unavailable [facility], [facility]available Unavailable [facility] Unavailable Unavailable INC, [facility] Unavailable Unavailable HOSPITAL P, [facility] COOK MENG, COOK MENG Unavailable Unavailable [facility], Unavailable Unavailable [facility] HOANG, HOANG Unavailable Unavailable FRIAS SUSANNA, FRIAS Unavailable Unavailable SUSANNA RUSLAN III JULIETA, Unavailable Unavailable RUSLAN III JULIETA [facility] Unavailable Unavailable IMAGING [facility], [facility] KOSTELIC MOSES, Unavailable Unavailable [facility] Un[facility] JACKSON MAX, JACKSON Unavailable Unavailable MAX JACKSON MAX, JACKSON Unavailable Unavailable MAX LINDA JULIANE, LINDA Unavailable Unavailable JULIANE HENNESSY JR, MINOO JR Unavailable Unavailable MINOO JR DWI, MINOO Unavailable Unavailable JR DWI LAILA RENUKA, Unavailable Unavailable LAILA RENUKA LAILA RENUKA, Unavailable Unavailable LAILA RENUKA MYHAND BARBARA, MYHAND Unavailable Unavailable BARBARA [facility] Unavailable Unavailable [facility], [facility] PSC COLUNGA PUMA, COLUNGA Unavailable Unavailable PUMA CONNOLLY LAR, CONNOLLY LAR Unavailable Unavailable [facility], [facility], [facility] Unavailable Unavailable [facility], [facility] CHAVEZ, CHAVEZ Unavailable Unavailable CHAVEZ SHE, CHAVEZ Unavailable Unavailable SHE LAMBERT OSMIN, LAMBERT OSMIN Unavailable Unavailable SOKAN BAB, SOKAN BAB Unavailable Unavailable [facility] Unavailable Unavailable [facility], [facility] KYRA SELWYN, KYRA Unavailable Unavailable SELWYN [facility] DE[facility] BILL, [facility] DEPT BILL [facility] Unavailable Unavailable [facility], [facility] HIGH, HIGH Unavailable Unavailable HIGH MAR, HIGH MAR Unavailable Unavailable Purpose Continuity of Care Document - 01-10-2011 through 2016 Problems Code Diagnosis DOS Provider Status J301 ALLERGIC 12-21-2016 [facility]IS [facility] DUE TO [place] POLLEN J3089 OTHER 12-21-2016 [facility] ALLERGIC [facility] RHINITIS [place] J4530 MILD 12-21-2016 [facility] PERSISTENT PARTNERS OF ASTHMA [place] UNCOMPLICAT ED A41464 ALLERGY TO 12-21-2016 ALLERGY OTHER FOODS [facility] [place] K521 TOXIC 11-29-2016 [facility] COLITIS R002 PALPITATION 11-29-2016 [facility] R079 CHEST PAIN 11-29-2016 [facility] Z720 TOBACCO USE 11-29-2016 [facility] P M58146 CHOROIDAL 10-06-2016 [facility] RUPTURE SERV UNSPECIFIED FOUNDATION EYE [id number] GLAUC SEC 10-06-2016 [facility] TRAUMA SERV RT EYE FOUNDATION INDETERMINA TE STAGE Z961 PRESENCE OF 10-06-2016 [facility] INTRAOCULAR FOUNDATION LENS J209 ACUTE 09-14-2016 [facility] BRONCHITIS PART[facility]ERS OF UNSPECIFIED [place] Z23 ENCOUNTER 08-10-2016 [facility] IMMUNIZATIO [facility] DEPT N BILL J0190 ACUTE 06-17-2016 ARNOLD BARBARA SINUSITIS UNSPECIFIED J310 CHRONIC 05-20-2016 [facility] RHINITIS PARTNERS OF [place] I10 ESSENTIAL 03-18-2016 [facility] PRIMARY PARTNERS OF HYPERTENSIO [place] N J4520 MILD 03-18-2016 [facility] INTERMITTEN PARTNERS OF T ASTHMA [place] UNCOMPLICAT ED B197GIM OTHER 03-18-2016 [facility] ADVERSE PARTNERS OF FOOD [place] REACTIONS NEC SUBSEQUENT ENC E538 DEFICIENCY 01-26-2016 [facility] OF OTHER NEUROLOGY SPECIFIED B GROUP VITAMINS 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 [facility] 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 J3081 ALLERG 01-01-2016 [facility] RH[facility]IS [facility] D/T ANIMAL [place] CAT DOG HAIR & DANDER D42261 OTHER 12-31-2015 [facility] WHITE BLOOD HOSPITA CELL COUNT A630 ANOGENITAL 12-16-2015 [facility] PSC Z302 ENCOUNTER 12-16-2015 NEW FOR [facility] PSC ON U21437 MUSCLE 09-29-2015 [facility] SPASM OF NEUROLOGY BACK R748 ABNORMAL 08-04-2015 [facility] LEVELS OF COMMUNTI OTHER SERUM HOSPITA ENZYMES R749 ABNORMAL 08-04-2015 [facility]UM [place] ENZYME ONCOLOGY & LEVEL UNSPECIFIED L089 LOCAL INF 07-25-2015 AUSTENMARIE BARBARA THE SKIN & SUBCUTANEOU S TISSUE UNS P22209 PAIN IN 07-13-2015 [facility] RIGHT MEDICAL SHOULDER IM[facility] ASS R0781 PLEURODYNIA 07-13-2015 [facility] [id number] CONTUSION 07-13-2015 TONY BARBARA UNS FRONT WALL THORAX INITIAL ENCNTR Z043 ENCOUNTER 07-13-2015 [facility] EXAM & MEDICAL OBSERVATION IMAGING ASS FOLLOW OTH ACCIDENT M5032 OTH CERV 06-08-2015 [facility] DEGENERATIO N MID-CERVICA L REGION R209 UNSPECIFIED 06-08-2015 [facility] DISTURBANCE HOSPITA S OF SKIN SENSATION R33094 OTHER 06-08-2015 [facility] SYMPTOMS & COMMUNTIY SIGNS HOSPITA INVOLVING THE NS R938 ABNORMAL 06-08-2015 [facility] FIND ON DX COMMUNTIY IMAGING OTH HOSPITA SPEC BODY STRCT 2662 OTHER 06-01-2015 [facility] B-COMPLEX NEUROLOGY DEFICIENCIE S 7964 OTHER 06-01-2015 [facility] ABNORMAL [facility] FINDING 4770 ALLERGIC 05-29-2015 [facility] RHINITIS [facility]ERS OF DUE TO [place] POLLEN 4772 ALLERGIC 05-29-2015 ALL[facility]GY RHINITIS PARTNERS OF DUE TO [place] ANIMAL HAIR AND DANDER 4778 ALLERGIC 05-29-2015 [facility]GY RHINITIS PARTNERS OF DUE TO [place] OTHER ALLERGEN 2704 DISTURBANCE 05-26-2015 [facility] S NEUROLOGY SULPHUR-JOHN PAUL R AMINO-ACID METABOLISM 16021 OTH 05-26-2015 [facility] SYMPTOMS NEUROLOGY INVLV NERV&MUSCUL OSKELETAL SYSTEMS 7820 DISTURBANCE 05-26-2015 [facility] SH[facility]HONE OF SKIN NEUROLOGY SENSATION 7937 NONSPC ABN 05-26-2015 [facility] FINDNG RAD NEUROLOGY & OTH EXM MUSCULSKELT L SYS V1552 PERSONAL 05-18-2015 [facility] HISTORY OF COMMUNTIY TRAUMATIC HOSPITA BRAIN INJURY 4739 UNSPECIFIED 05-06-2015 [facility] SINUSITIS PARTNERS OF [place] 9953 ALLERGY 05-06-2015 ALLERGY UNSPECIFIED PARTNERS OF NOT [place] ELSEWHERE CLASSIFIED 3829 UNSPECIFIED 04-11-2015 ARNOLD BARBARA OTITIS MEDIA 4619 ACUTE 04-11-2015 ARNOLD BARBARA SINUSITIS, UNSPECIFIED 4659 ACUTE URIS 03-28-2015 ARNOLD BARBARA OF UNSPECIFIED SITE 25517 [place] 03-03-2015 [facility] ASSOC[facility]ATED SERV WITH OCULAR FOUNDATION TRAUMA 24594 INDETERMINA 03-03-2015 [facility] MEDICAL TE STAGE SERV [facility] FOUNDATION 4779 ALLERGIC 02-05-2015 [facility] RHINITIS PHYSICIANS CAUSE GROUP UNSPECIFIED 35417 IMPOTENCE 12-30-2014 [facility] P 470 DEVIATED 11-13-2014 COMMUNITY NASAL ANESTH OF SEPTUM THE BLUE 85291 OTHER 11-11-2014 [place] DISEASES OF [facility] P CAVITY AND SINUSES V7283 OTHER 11-11-2014 [facility] VE EXAMINATION 4730 CHRONIC 11-10-2014 JACKSON MAX MAXILLARY SINUSITIS 00916 OTHER 10-28-2014 LAILA CHRONIC RENUKA ALLERGIC CONJUNCTIVI TIS 56169 EXTRINSIC 10-28-2014 LAILA ASTHMA, RENUKA UNSPECIFIED 7840 HEADACHE 10-09-2014 [facility] 7842 SWELLING 10-09-2014 [facility] MASS OR MEDICAL LUMP IN IMAGING ASS HEAD AND NECK 62878 PRIMARY 09-23-2014 [facility] OPEN-[facility]LE [facility] 4610 ACUTE 09-22-2014 JACKSON MAX MAXILLARY SINUSITIS 16245 UNSPECIFIED 08-26-2014 [facility] P 2163 BENIGN 08-21-2014 RENETTA SANTANA NEOPLASM SKIN OTHER&UNSPE C PARTS FACE 7020 ACTINIC 08-21-2014 [facility] KERATOSIS [facility] 7062 SEBACEOUS 08-21-2014 [facility] CYST TONY & CATALINA 7099 UNSPECIFIED 08-21-2014 COMMUNITY DISORDER ANESTH OF OF THE BLUE SKIN&SUBCUT ANEOUS TISSUE V5869 LONG-TERM 08-21-2014 [facility] (CURRENT) [facility] USE OF INC OTHER MEDICATIONS 0549 HERPES 07-30-2014 [facility]IA [facility] WITHOUT PSC MENTION OF COMPLICATIO N 10896 CONDYLOMA 07-30-2014 [facility] PSC 2382 NEOPLASM OF 07-30-2014 [facility] SKIN 0794 HUMAN 07-22-2014 [place] [facility] VIRUS IN HOSPITAL P CCE & UNS SITE 63663 PHOTOKERATI 06-30-2014 RENETTA SANTANA TIS 4660 ACUTE 06-23-2014 ARNOLD BARBARA BRONCHITIS [...] N EMERGENCY RDS PHYS CAUSE POISN&TOX REACT 18381 [place] 02-25-[address] [place] [facility] UNSPECIFIED FOUNDATIO 07870 EXTRINSIC 02-03-2014 LAILA ASTHMA, RENUKA WITH EXACERBATIO N 49040 ACUT 10-17-2013 LAILA SUPPRATV RENUKA OTITIS MEDIA W/O SPONT RUP EARDRUM 4780 HYPERTROPHY 10-17-2013 LAILA OF NASAL REN[place]A TURBINATES 07030 SLOWING OF 07-02-2013 [place] URINARY [facility] P 20674 OTHER 05-29-2013 [facility] DISORDER OF PSC BLADDER 75003 HYPERTROPHY 05-14-2013 [place] PROSTATE [facility] W/UR OBST & HOSPITAL P OTH LUTS 75020 URINARY 05-14-2013 [facility] P 28184 DYSFUNCTION 04-18-2013 LAILA OF RENUKA EUSTACHIAN TUBE 6011 CHRONIC 04-16-2013 [facility] PROSTATITIS [facility] P 81060 UNSPECIFIED 03-29-2013 TONY JIMENEZ URETHRITIS 97612 HEAD 03-29-2013 PROFESSION[facility] INJURY, L REHAB UNSPECIFIED ASSOC PSC 04457 SIMPLE/UNSP 10-18-2012 LAILA ECIFIED REN[place]A CHRONIC SEROUS OTITIS MEDIA 3823 UNSPECIFIED 09-17-2012 LAILA CHRONIC [place] SUPPURATIVE OTITIS MEDIA V7651 SPECIAL 05-01-2012 [facility] SCREENING ANESTHESIA FOR PSC MALIGNANT NEOPLASMS COLON 80107 ACUTE 03-15-2012 LAILA SEROUS [place]EN[place]A OTITIS MEDIA 35100 UNSPECIFIED 02-17-2012 AUSTENMARIE BARBARA INFECTIVE OTITIS EXTERNA 1105 DERMATOPHYT 09-19-2011 AUSTENMARIE BARBARA OSIS OF THE BODY 88069 ING TAL 09-19-2011 TONY JIMENEZ W/O MENTION OBST/GANGRE N UNILAT/UNSP EC 462 ACUTE 09-15-2011 LAILA PHARYNGITIS [place]A 2298 BENIGN 07-07-2011 [place] NEOPLASM OF [facility] P SPECIFIED SITES V7381 SPECIAL 07-07-2011 [place] SCREENING [facility] P HUMAN PAPILVIRUS 6869 UNSPEC 06-30-2011 AUSTENMARIE JIMENEZ LOCAL INFECTION SKIN&SUBCUT ANEOUS TISSUE 17548 OPEN ANGLE 06-21-2011 [place] [facility]ICAL WITH SERV BORDERLINE FOUNDATIO FINDINGS HIGH RISK 61496 ENTHESOPATH 03-18-2011 AUSTENMARIE BARBARA Y OF UNSPECIFIED SITE 4710 POLYP OF 01-10-2011 LAILA NASAL RENUKA CAVITY 25122 WHEEZING 01-10-2011 LAILA RENUKA 73587 ANAPHYLACTI 01-10-2011 [facility] RE[facility] DUE TO INC PEANUTS V727 DIAGNOSTIC 01-10-2011 LAILA SKIN AND RENUKA SENSITIZATI ON TESTS Immunization Name Date Rout CVX Reac Dose Comm Prov Is Faci e tion ent ider Refu lity Give sed n IIV4 12-0 158 [facility] No [facility] 7-20 O O VACC 16 DIST DIST RICT RICT SPLI T HLTH HLTH VIRU S DEPT DEPT 0.5 BILL BILL ML DOS FOR IM USE Procedures Procedure DOS Code Location Performer Comment NITRIC 64693 [facility] HIGH OXIDE 7 [facility] [place] DETERMINA TION DEMO&/BOZENA 96214 ALLERGY HIGH L OF PT 7 PARTNERS UTILIZ OF [place] AERSL CO GEN/NEB/I NHLR/IP BRNCDILAT 52740 ALLERGY HIGH RSPSE 7 PARTNERS SPMTRY OF [place] PRE&[place] [address] [facility] TROPONIN 7 MEM HOS[facility]OS[facility] QUANTITAT INC INC LATIA ECG 47988 [facility] HENNESSY JR ROUTINE 7 [facility] W/LEAST P 12 LDS I&R ONLY RADIOLOGI 61081 [facility] DUCKWORTH C 7 MEDICAL EXAMINATI IMAGING ON CHEST ASS [place] FRONTAL BLOOD 82075 [facility] COUNT 7 [facility]OS[facility] COMPLETE INC INC AUTO&AUTO DIFRNTL WBC CREATINE 47121 [facility] KINASE 7 [facility] TOTAL INC INC COMPREHEN 13052 [facility] SIVE 7 [facility] [place] [address] [facility] AMYLASE 7 [facility]OS[facility] INC INC CREATINE 46422 [facility] KINASE MB 7 [facility] [place] [address] [facility] INFUSION 7 [facility] THERAPY/P INC INC ROPHYLAXI S /DX 1ST TO 1 [place] [address] [facility] LIPASE 7 [facility] INC INC ECG 72003 [facility] ROUTINE 7 [facility]OS[facility] ECG INC INC W/LEAST 12 LDS TRCG ONLY W/O I&[place] [address] [facility] THYROID 7 MEM HOS[facility] MEM HOSP STIMULATI INC INC NG HORMONE TSH COMPUTERI [address] [facility] ZED 7 MEDICAL OPHTHALMI SERV C IMAGING FOUNDATIO OPTIC N NERVE OPHTH 40789 [facility] 7 MEDICAL XM&EVAL SERV COMPRHNSV FOUNDATIO ESTAB PT N 1/> INJECTION J1040 ALLERGY HIGH 7 PARTNERS METHYLPRE OF [place] DNISOLONE CO ACETATE 80 MG BRNCDILAT 01906 ALLERGY HIGH RSPSE 7 PARTNERS SPMTRY OF [place] PRE&POST- CO BRNCDILAT ADMN DEMO&/BOZENA 91658 ALLERGY HIGH L OF PT 7 PARTNERS UTILIZ OF [place] AERSL CO GEN/NEB/I NHLR/IP NITRIC 76432 ALLERGY HIGH OXIDE 7 [facility] [place] G[place] CO DETERMINA TION IIV4 VACC 43716 [facility] SPLIT 6 [facility] DISTRICT VIRUS 0.5 HLTH DEPT HLTH DEPT ML DOS BILL BILL FOR IM USE ADMINISTR G0008 [facility] ATION OF 6 DISTRICT DISTRICT INFLUENZA HLTH DEPT [facility] DEPT VIRUS BILL BILL VACCINE BRNCDILAT 69688 ALLERGY HIGH MAR RSPSE 6 PARTNERS SPMTRY OF [place] PRE&POST- CO BRNCDILAT ADMN NITRIC 35129 ALLERGY HIGH MAR OXIDE 6 PARTNERS OF [place] CO DETERMINA TION DEMO&/BOZENA 09290 ALLERGY HIGH MAR L OF PT 6 PARTNERS UTILIZ OF [place] AERSL CO GEN/NEB/I NHLR/IP DEMO&/BOZENA 89293 ALLERGY HIGH MAR L OF PT 6 PARTNERS UTILIZ OF [place] AERSL CO GEN/NEB/I NHLR/IP NITRIC 70144 ALLERGY HIGH MAR OXIDE 6 PARTNERS OF [place] GAS CO DETERMINA TION BRNCDILAT 66575 ALLERGY HIGH MAR RSPSE 6 PARTNERS SPMTRY OF [place] PRE&POST- CO BRNCDILAT ADMN OPHTH 31212 [facility] 6 MEDICAL SHE XM&EVAL SERV COMPRHNSV FOUNDATIO ESTAB PT N 1/> PROF [facility] 00247 ALLERGY HIGH MAR ALLG 6 PARTNERS IMMNTX X OF [place] W/PRV CO ALLGIC XTRCS NJXS BLOOD 97991 [facility] COUNT 6 N N COMPLETE COMMUNTIY COMMUNTIY AUTO&AUTO HOSPITA HOSPITA DIFRNTL WBC PROF [facility] 49535 ALLERGY HIGH MAR ALLG 6 PARTNERS IMMNTX X OF [place] W/PRV CO ALLGIC XTRCS NJXS PREPJ& 14173 ALLERGY HIGH MAR ALLERGEN 6 PARTNERS IMMUNOTHE OF [place] RAPY CO 1/SEED BUYER ANTIGEN ANESTHESI 45538 ANESTHESI CONNOLLY LAR A MALE 6 A GENITALIA ASSOCIATE INCL S PSC OPEN URETHRAL PX VASECTOMY 15816 NEW NEW UNI/BI 6 [facility] SPX CLINIC CLINIC W/POSTOP PSC PSC SEMEN EXAMS DSTRJ 57718 NEW NEW LESION 6 [facility] PENIS CLINIC CLINIC SIMPLE PSC PSC ELECTRODE SICCATION PROF SVCS 04214 [facility]ERGY HIGH MAR ALLG 6 PARTNERS IMMNTX X OF [place] W/PRV CO ALLGIC XTRCS NJXS BLOOD 31487 [facility] COUNT 6 N N SMEAR COMMUNTIY COMMUNTIY MCRSCP HOSPITA HOSPITA W/MNL DIFRNTL WBC COUNT BLOOD 47105 [facility] COUNT 6 N N COMPLETE COMMUNTIY COMMUNTIY [place] [address] [facility] FOLIC 6 N N ACID COMMUNTIY COMMUNTIY SERUM HOSPITA HOSPITA COLLECTIO 19869 [facility] MYHAND N VENOUS 6 [facility] BLOOD ONCOLOGY VENIPUNCT & URE CYANOCOBA 88878 [facility] JENNIFER 6 N N VITAMIN COMMUNTIY COMMUNTIY B-12 HOSPITA HOSPITA VISUAL 30642 PA CHAVEZ FIELD XM 6 MEDICAL SHE UNI/BI SERV W/INTERP FOUNDATIO EXTENDED N EXAM OPHTH [address] [facility] MEDICAL 6 MEDICAL SHE XM&EVAL SERV INTERMEDI [place] [address] ALLERGY HIGH MAR ALLG 6 PARTNERS IMMNTX X OF [place] W/PRV CO ALLGIC XTRCS NJXS PROF [facility] 99904 ALLERGY HIGH MAR ALLG 5 PARTNERS IMMNTX X OF [place] W/PRV CO ALLGIC XTRCS NJXS NITRIC 47850 ALLERGY HIGH MAR OXIDE 5 PARTNERS OF [place] G[place] CO DETERMINA TION SPMTRY 36378 ALLERGY HIGH MAR W/VC 5 PARTNERS EXPIRATOR OF [place] Y PET[place] W/[place] [address] ALLERGY HIGH MAR ALLG 5 PARTNERS IMMNTX X OF [place] W/PRV CO ALLGIC XTRCS NJXS BLOOD 95834 [facility] COUNT 5 N N SMEAR COMMUNTIY COMMUNTIY MCRSCP HOSPITA HOSPITA W/MNL DIFRNTL WBC COUNT BLOOD 37250 [facility] COUNT 5 N N COMPLETE COMMUNTIY COMMUNTIY AUTOMATED HOSPITA HOSPITA RADEX 72852 NIRMALA NICHOLE RIBS 5 MEDICAL TAQUERIA UNILATERA IMAGING L 2 VIEWS ASS RADEX 54972 [facility] RIBS UNI 5 MEM HOSP MEM [facility]OSP W/POSTERO INC INC ANT CH MINIMUM 3 VIEWS RADEX 69403 [facility] NICHOLE SHOULDER 5 MEDICAL TAQUERIA COMPLETE IMAGING MINIMUM 2 ASS VIEWS BLOOD 46128 [facility] COUNT 5 N N COMPLETE COMMUNTIY COMMUNTIY AUTO&AUTO HOSPITA HOSPITA DIFRNTL WBC PREPJ& 30997 ALLERGY HIGH MAR ALLERGEN 5 PARTNERS IMMUNOTHE OF [place] RAPY CO 1/SEED BUYER ANTIGEN BRNCDILAT 03072 ALLERGY HIGH MAR RSPSE 5 PARTNERS SPMTRY OF [place] PRE&POST- CO BRNCDILAT ADMN SPMTRY 38218 ALLERGY ALLERGY W/VC 5 PARTNERS PARTNERS EXPIRATOR OF [place] OF [place] Y PETRA CO CO W/WO MXML VOL VNTJ NITRIC 99185 ALLERGY HIGH MAR OXIDE 5 PARTNERS OF [place] GAS CO DETERMINA TION PERCUTANE 94074 ALLERGY HIGH MAR OUS TESTS 5 PARTNERS OF [place] W/[place] [address] [facility] HOMOCYSTE 5 N N INE COMMUNTIY COMMUNTIY HOSPITA HOSPITA BLOOD 21004 [facility] COUNT 5 N N COMPLETE COMMUNTIY COMMUNTIY AUTO&AUTO HOSPITA HOSPITA DIFRNTL WBC COLLECTIO 60684 [facility] N VENOUS 5 N N BLOOD COMMUNTIY COMMUNTIY VENIPUNCT HOSPITA HOSPITA URE ORGANIC 59313 [facility] ACID 1 5 N N QUANTITAT COMMUNTIY COMMUNTIY LATIA HOSPITA HOSPITA MRI 29502 [facility] [place] RUSLAN SPINAL 5 RADIOLOGY III JULIETA CANAL CERVICAL W/O & W/CONTR MATRL INJECTION J3420 [facility] VIT B-12 5 N NEUROLOGY CYANOCOBA JENNIFER TO 1000 MCG THERAPEUT 77174 [facility] IC 5 N PROPHYLAC NEUROLOGY TIC/DX INJECTION SUBQ/IM THERAPEUT 89351 [facility] IC 5 N PROPHYLAC NEUROLOGY TIC/DX INJECTION SUBQ/IM INJECTION J3420 [facility] VIT B-12 5 N NEUROLOGY CYANOCOBA JENNIFER TO 1000 MCG INJECTION J3420 [facility] VIT B-12 5 N NEUROLOGY CYANOCOBA JENNIFER TO 1000 MCG THERAPEUT 32061 [facility] IC 5 N PROPHYLAC NEUROLOGY TIC/DX INJECTION SUBQ/IM PROF SVCS 45704 ALLERGY HIGH MAR ALLG 5 PARTNERS IMMNTX X OF [place] W/PRV CO ALLGIC XTRCS NJXS THERAPEUT 69198 [facility] IC 5 N PROPHYLAC NEUROLOGY TIC/DX INJECTION SUBQ/IM INJECTION J3420 [facility] VIT B-12 5 N NEUROLOGY CYANOCOBA JENNIFER TO 1000 MCG INJECTION J3420 [facility] VIT B-12 5 N NEUROLOGY CYANOCOBA JENNIFER TO 1000 MCG THERAPEUT 05868 [facility] IC 5 N PROPHYLAC NEUROLOGY TIC/DX INJECTION SUBQ/IM NERVE 40619 [facility] CONDUCTIO 5 N N STUDIES NEUROLOGY 9-10 STUDIES NEEDLE 44850 [facility] EMG EA 5 N EXTREMTY NEUROLOGY W/PARASPI NL AREA COMPLETE THERAPEUT 28341 [facility] IC 5 N PROPHYLAC NEUROLOGY TIC/DX INJECTION SUBQ/IM MRI 90281 [facility] [place] KOSTELIC SPINAL 5 RADIOLOGY MOSES CANAL CERVICAL W/O CONTRAST MATRL MRI BRAIN 44277 [facility] [place] KOSTELIC BRAIN 5 RADIOLOGY MOSES STEM W/O CONTRAST MATERIAL INJECTION J3420 [facility] O[facility] VIT B-12 5 N NEUROLOGY CYANOCOBA JENNIFER TO 1000 MCG INJECTION J3420 [facility]-12 5 N NEUROLOGY CYANOCOBA JENNIFER TO 1000 MCG THERAPEUT 48750 [facility] IC 5 N PROPHYLAC NEUROLOGY TIC/DX INJECTION SUBQ/IM THERAPEUT 58119 [facility] IC 5 N PROPHYLAC NEUROLOGY TIC/DX INJECTION SUBQ/[place] [address] [facility] HOMOCYSTE 5 N N INE COMMUNTIY COMMUNTIY HOSPITA HOSPITA BLOOD 88834 [facility] COUNT 5 N N SMEAR COMMUNTIY COMMUNTIY MCRSCP HOSPITA HOSPITA W/MNL DIFRNTL WBC COUNT COLLECTIO 48083 [facility] N VENOUS 5 N N BLOOD COMMUNTIY COMMUNTIY VENIPUNCT HOSPITA HOSPITA URE BLOOD 53470 [facility] COUNT 5 N N COMPLETE COMMUNTIY COMMUNTIY AUTOMATED HOSPITA HOSPITA INJECTION [id number] [facility] OSMIN VIT B-12 5 N NEUROLOGY CYANOCOBA JENNIFER TO 1000 MCG ORGANIC 11999 [facility] ACID 1 5 N N QUANTITAT COMMUNTIY COMMUNTIY LATIA HOSPITA HOSPITA PROTEIN 77743 [facility] ELECTROPH 5 N N ORETIC COMMUNTIY COMMUNTIY FRACTJ&QU [place] [address] [facility] THIAMINE- 5 N N VITAMIN COMMUNTIY COMMUNTIY B-1 HOSPITA HOSPITA COLLECTIO 74247 [facility] N VENOUS 5 N N BLOOD COMMUNTIY COMMUNTIY [place]IPUN[place] [address] [facility] THYROID 5 N N STIMULATI COMMUNTIY COMMUNTIY NG HOSPITA HOSPITA HORMONE TSH CYANOCOBA 55309 [facility] JENNIFER 5 N N VITAMIN COMMUNTIY COMMUNTIY B-[place] [address] [facility] FOLIC 5 N N ACID COMMUNTIY COMMUNTI[place] [address] [facility] PYRIDOXAL 5 N N COMMUNTIY COMMUNTIY PHOSPHATE HOSPITA HOSPITA PROF [facility] 829[address] ALLERGY HIGH MAR ALLG 5 PARTNERS IMMNTX X OF COTTO W/PRV CO ALLGIC XTRCS [facility] INJ J0702 TOYN JIMENEZ BETAMETHA 5 BARBARA BARBARA SONE ACETATE & PHOSPHATE 3 MG PROF [facility] 259[address] LAILA LAILA ALLG 5 RENUKA RENUKA IMMNTX X W/PRV ALLGIC XTRCS [facility] OPHTH 41835 ROL[facility] CHAVEZ MEDICAL 5 MEDICAL SHE XM&EVAL SERV COMPRHNSV FOUNDATIO ESTAB PT N 1/> COMPUTERI 25576 ROLANDO CHAVEZ ZED 5 MEDICAL SHE OPHTHALMI SERV C IMAGING FOUNDATIO OPTIC N NERVE PROF [facility] 71363 LAILA LAILA ALLG 5 RENUKA RENUKA IMMNTX X W/PRV ALLGIC XTRCS NJXS PROF [facility] 86974 LAILA LAILA ALLG 5 RENUKA RENUKA IMMNTX X W/PRV ALLGIC XTRCS NJXS PROF [facility] 11489 LAILA LAILA ALLG 5 RENUKA RENUKA IMMNTX X W/PRV ALLGIC XTRCS NJXS PROF [facility] 10156 LAILA LAILA ALLG 5 RENUAK RENUKA IMMNTX X W/PRV ALLGIC XTRCS [facility] ANESTHESI 01039 [facility] WRIGHT ANNETTE A NOSE & 5 ANESTH ACCESSORY OF THE SINUSES BLUE NOS COLLECTIO 42584 [facility] N VENOUS 5 [facility] BLOOD INC INC VENIPUNCT URE BLOOD 11644 [facility] COUNT 5 [facility] COMPLETE INC INC AUTO&AUTO DIFRNTL WBC ECG 89749 [facility] HENNESSY JR ROUTINE 5 [place] W/LEAST P 12 LDS I&R ONLY ECG 46512 [facility] ROUTINE 5 [facility] ECG INC INC W/LEAST 12 LDS TRCG ONLY W/O I&R SPMTRY 71083 LAILA LAILA W/VC 5 RENUKA RENUKA EXPIRATOR Y PETRA W/WO MXML VOL VNTJ PROF [facility] 54818 LAILA LAILA ALLG 5 RENUKA RENUKA IMMNTX X W/[place] [address] NIRMALA NICHOLE MAXILLOFA 5 MEDICAL [place] CIAL W/O IMAGING CONTRAST ASS MATERIAL URNLS DIP 76119 [facility] SINGH 4 [facility] LET RGNT P NON-AUTO W/O MICRSCP ADJT TIS 91950 RENETTA JACKSON TRNS/REAR 4 MAX MAX GMT F/C/C/M/N /A/G/H/F 10SQCM/< [place] [address] [facility] INFUSION 4 [facility] THERAPY/P INC INC ROPHYLAXI S /DX 1ST TO 1 HR THERAPEUT 99794 [facility] INJECTION [place] [address] [facility] INFUSION 4 [facility] THERAPY INC INC PROPHYLAX IS/DX EA HOUR ANES 05988 [facility] INTEG 4 ANESTH SELWYN MUSC & OF THE NRV HEAD BLUE NECK&[place] [address] [facility] SURG 4 [facility] PATHOLOGY INC INC GROSS&JESSICA ROSCOPIC EXAM PROF [facility] 60790 LAILA LAILA ALLG 4 RENUKA GRAYSON IMMNTX X W/PRV ALLGIC XTRCS NJXS ANESTHESI 39065 ANESTHESI COLUNGA A MALE 4 A PUMA GENITALIA ASSOCIATE INCL S PSC OPEN URETHRAL PX DSTRJ 35052 NEW SINGH LESION 4 [facility] [place] [address] [place] [facility] SUR[facility] PSC GROSS&JESSICA ROSCOPIC EXAM PROF [facility] 59201 LAILA LAILA ALLG 4 RENUKA RENUKA IMMNTX X W/PRV ALLGIC XTRCS NJXS PREPJ& 57068 LAILA LAILA ALLERGEN 4 RENUKA RENUKA IMMUNOTHE RAPY 1/SEED BUYER ANTIGEN PROF [facility] 47571 LAILA LAILA ALLG 4 RENUKA RENUKA IMMNTX X W/PRV ALLGIC XTRCS NJXS SPMTRY 90998 LAILA LAILA W/VC 4 RENUKA RENUKA EXPIRATOR Y PETRA W/WO MXML VOL VNTJ PROF [facility] 43286 LAILA LAILA ALLG 4 RENUKA RENUKA IMMNTX X W/PRV ALLGIC XTRCS NJXS PROF [facility] 65368 LAILA LAILA ALLG 4 RENUKA RENUKA IMMNTX X W/PRV ALLGIC XTRCS NJXS INJ J0702 TONY JIMENEZ BETAMETHA 4 BARBARA BARBARA SONE ACETATE & PHOSPHATE 3 MG OPHTH 21059 [place] [facility] 4 MEDICAL SHE XM&EVAL SERV INTERMEDI FOUNDATIO ATE ESTAB PT GONIOSCOP 27836 [place] [facility] Y 4 MEDICAL SHE SEPARATE SERV PROCEDURE FOUNDATIO BRNCDILAT 78873 LAILA LAILA RSPSE 4 RENUKA RENUKA SPMTRY PRE&POST- BRNCDILAT ADMN INJECTION J1040 LAILA LAILA 4 RENUKA RENUKA METHYLPRE DNISOLONE ACETATE 80 MG INJECTION J2010 LAILA LAILA 4 RENUKA RENUKA LINCOMYCI N HCL UP TO 300 MG PRESSURIZ 63066 LAILA LAILA ED/NONPRE 4 RENUKA RENUKA SSURIZED INHALATIO N TREATMENT THERAPEUT 51470 LAILA LAILA IC 4 RENUKA RENUKA PROPHYLAC TIC/DX INJECTION SUBQ/IM DEMO&/BOZENA 35139 LAILA LAILA L OF PT 4 RENUKA RENUKA UTILIZ AERSL GEN/NEB/I NHLR/IP PROF [facility] 61231 LAILA LAILA ALLG 4 RENUKA RENUKA IMMNTX X W/PRV ALLGIC XTRCS NJXS COMPUTERI 76394 CYNSOFIAMICHAELA CJ BROWN [facility] C IMAGING OPTIC NERVE PROF [facility] 92885 LAILA LAILA ALLG 4 RENUKA RENUKA IMMNTX X W/PRV ALLGIC XTRCS NJXS PROF [facility] 07518 LAILA LAILA ALLG 4 RENUKA RENUKA IMMNTX X W/PRV ALLGIC XTRCS NJXS PROF [facility] 56729 LAILA LAILA ALLG 4 RENUKA RENUKA IMMNTX X W/PRV ALLGIC XTRCS 1 NJX PROF [facility] 17070 LAILA LAILA ALLG 4 RENKUA RENUKA IMMNTX X W/PRV ALLGIC XTRCS NJXS THERAPEUT 91877 LAILA LAILA IC 4 RENUKA RENUKA PROPHYLAC TIC/DX INJECTION SUBQ/IM INJECTION J2010 LAILA LAILA 4 RENUKA RENUKA LINCOMYCI N HCL UP TO 300 MG INJECTION J1040 LAILA LAILA 4 RENUKA RENUKA METHYLPRE DNISOLONE ACETATE 80 MG INJECTION J0696 TONY JIMENEZ 4 BARBARA BARBARA CEFTRIAXO NE SODIUM PER 250 MG PROF [facility] 62312 LAILA LAILA ALLG 4 RENUKA RENUKA IMMNTX X W/PRV ALLGIC XTRCS NJXS INJECTION J0696 TONY JIMENEZ 3 BARBARA BARBARA CEFTRIAXO NE SODIUM PER 250 MG PROF [facility] 01849 LAILA LAILA ALLG 3 RENUKA RENUKA IMMNTX X W/PRV ALLGIC XTRCS NJXS PROF [facility] 37045 LAILA LAILA ALLG 3 RENUKA RENUKA IMMNTX X W/PRV ALLGIC XTRCS NJXS PREPJ& 06612 LAILA LAILA ALLERGEN 3 RENUKA RENUKA IMMUNOTHE RAPY 1/SEED BUYER ANTIGEN PROF [facility] 18408 LAILA LAILA ALLG 3 RENUKA RENUKA IMMNTX X W/[place] [address] LAILA LAILA ALLG 3 RENUKA RENUKA IMMNTX X W/PRV ALLGIC XTRCS NJXS CYSTOURET 99299 [facility]H HROSCOPY 3 [facility] PSC ANES 90087 ANESTHESI FRIAS TRANSURET 3 A SUSANNA HRAL ASSOCIATE W/URETHRO S PSC CYSTOSCOP Y NOS PROF [facility] 18121 LAILA LAILA ALLG 3 RENUKA RENUKA IMMNTX X W/PRV ALLGIC XTRCS NJXS URNLS DIP [address] LET RGNT P NON-AUTO W/O MICRSCP PROF [facility] 45822 LAILA LAILA ALLG 3 RENUKA RENUKA IMMNTX X W/PRV ALLGIC XTRCS NJXS PROF [facility] 40625 LAILA LAILA ALLG 3 RENUKA RENUKA IMMNTX X W/PRV ALLGIC XTRCS NJXS PROF [facility] 67392 LAILA LAILA ALLG 3 RENUKA RENUKA IMMNTX X W/PRV ALLGIC XTRCS NJXS PROF [facility] 41005 LAILA LAILA ALLG 3 RENUKA RENUKA IMMNTX X W/PRV ALLGIC XTRCS NJXS THERAPEUT 81679 LAILA LAILA IC 3 RENUKA RENUKA PROPHYLAC TIC/DX INJECTION SUBQ/IM INJECTION J1040 LAILA LAILA 3 RENUKA RENUKA METHYLPRE DNISOLONE ACETATE 80 MG URNLS DIP [address] LET RGNT P NON-AUTO W/O MICRSCP PROF [facility] 96892 LAILA LAILA ALLG 3 RENUKA RENUKA IMMNTX X W/PRV ALLGIC XTRCS NJXS THERAPEUT 13244 PROFESSIO CROSSFIEL IC PX 1/> 3 [facility] D DEMI AREAS ASSOC EACH 15 PSC MIN EXERCISES THERAPEUT 20966 PROFESSIO CROSSFIEL ACTVITY 3 NAL REHAB D DEMI DIRECT PT ASSOC CONTACT PSC EACH 15 MIN THERAPEUT 54452 PROFESSIO CROSSFIEL IC PX 1/> 3 NAL REHAB D DEMI AREAS ASSOC EACH 15 PSC MIN EXERCISES THERAPEUT 10121 PROFESSIO CROSSFIEL IC PX 1/> 3 NAL REHAB D DEMI AREAS ASSOC EACH 15 PSC MIN EXERCISES PROF SVCS 28395 LAILA LAILA ALLG 3 RENUKA RENUKA IMMNTX X W/PRV ALLGIC XTRCS NJXS THERAPEUT 94766 PROFESSIO PROFESSIO IC PX 1/> 3 NAL REHAB NAL REHAB AREAS ASSOC ASSOC EACH 15 PSC PSC MIN EXERCISES THERAPEUT 48489 PROFESSIO CROSSFIEL IC PX 1/> 3 NAL REHAB D DEMI AREAS ASSOC EACH 15 PSC MIN EXERCISES THERAPEUT 79853 PROFESSIO CROSSFIEL ACTVITY 3 NAL REHAB D DEMI DIRECT PT ASSOC CONTACT PSC EACH 15 MIN THERAPEUT 25888 PROFESSIO CROSSFIEL IC PX 1/> 3 NAL REHAB D DEMI AREAS ASSOC EACH 15 PSC MIN EXERCISES THERAPEUT 85920 PROFESSIO CROSSFIEL IC PX 1/> 3 NAL REHAB D DEMI AREAS ASSOC EACH 15 PSC MIN EXERCISES PROF SVCS 62044 LAILA LAILA ALLG 3 RENUKA RENUKA IMMNTX X W/PRV ALLGIC XTRCS NJXS THERAPEUT 77210 PROFESSIO CROSSFIEL IC PX 1/> 3 NAL REHAB D DEMI AREAS ASSOC EACH 15 PSC MIN EXERCISES THERAPEUT 44476 PROFESSIO CROSSFIEL IC PX 1/> 3 NAL REHAB D DEMI AREAS ASSOC EACH 15 PSC MIN EXERCISES THERAPEUT 85814 PROFESSIO CROSSFIEL IC PX 1/> 3 NAL REHAB D DEMI AREAS ASSOC EACH 15 PSC MIN EXERCISES THERAPEUT 76413 PROFESSIO CROSSFIEL IC PX 1/> 3 NAL REHAB D DEMI AREAS ASSOC EACH 15 PSC MIN EXERCISES THERAPEUT 57476 PROFESSIO CROSSFIEL IC PX 1/> 3 NAL REHAB D DEMI AREAS ASSOC EACH 15 PSC MIN EXERCISES THERAPEUT 89391 PROFESSIO PROFESSIO IC PX 1/> 3 NAL REHAB NAL REHAB AREAS ASSOC ASSOC EACH 15 PSC PSC MIN EXERCISES THERAPEUT 40251 PROFESSIO PROFESSIO IC PX 1/> 3 NAL REHAB NAL REHAB AREAS ASSOC ASSOC EACH 15 PSC PSC MIN EXERCISES PROF SVCS 58996 LAILA LAILA ALLG 3 RENUKA RENUKA IMMNTX X W/PRV ALLGIC XTRCS NJXS THERAPEUT 56895 PROFESSIO CROSSFIEL IC PX 1/> 3 NAL REHAB D DEMI AREAS ASSOC EACH 15 PSC MIN EXERCISES PHYSICAL 29379 PROFESSIO CROSSFIEL THERAPY 3 NAL REHAB D DEMI EVALUATIO ASSOC N PSC PROF [facility] 68759 LAILA LAILA ALLG 3 RENUKA RENUKA IMMNTX X W/PRV ALLGIC XTRCS NJXS PROF [facility] 98761 LAILA LAILA ALLG 3 RENUKA RENUKA IMMNTX X W/PRV ALLGIC XTRCS NJXS PROF [facility] 93122 LAILA LAILA ALLG 3 RENUKA RENUKA IMMNTX X W/PRV ALLGIC XTRCS NJXS PROF [facility] 90865 LAILA LAILA ALLG 3 RENUKA RENUKA IMMNTX X W/PRV ALLGIC XTRCS NJXS PROF [facility] 72207 LAILA LAILA ALLG 3 RENUKA RENUKA IMMNTX X W/PRV ALLGIC XTRCS NJXS PROF [facility] 59214 LAILA LAILA ALLG 3 RENUKA RENUKA IMMNTX X W/PRV ALLGIC XTRCS NJXS PROF [facility] 42555 LAILA LAILA ALLG 3 RENUKA RENKUA IMMNTX X W/PRV ALLGIC XTRCS NJXS THERAPEUT 18813 [facility] IC 3 [facility] PROPHYLAC INC INC TIC/DX INJECTION SUBQ/IM OPHTH 40919 [facility] 3 MEDICAL SHE XM&EVAL SERV INTERMEDI FOUNDATIO ATE ESTAB PT PROF [facility] 19660 LAILA LAILA ALLG 3 RENUKA RENUKA IMMNTX X W/PRV ALLGIC XTRCS NJXS PROF [facility] 01978 LAILA LAILA ALLG 3 RENUKA RENUKA IMMNTX X W/PRV ALLGIC XTRCS NJXS PREPJ& 46141 LAILA LAILA ALLERGEN 3 RENUKA RENUKA IMMUNOTHE RAPY 1/SEED BUYER ANTIGEN PROF [facility] 75984 LAILA LAILA ALLG 3 RENUKA RENUKA IMMNTX X W/PRV ALLGIC XTRCS NJXS PROF [facility] 46724 LAILA LAILA ALLG 3 RENUKA RENUKA IMMNTX X W/PRV ALLGIC XTRCS NJXS PROF SVCS 84577 LAILA LAILA ALLG 3 RENUKA RENUKA IMMNTX X W/PRV ALLGIC XTRCS NJXS PROF SVCS 40534 LAILA LAILA ALLG 2 RENUKA RENUKA IMMNTX X W/PRV ALLGIC XTRCS NJXS PROF SVCS 62480 LAILA LAILA ALLG 2 RENUKA RENUKA IMMNTX X W/PRV ALLGIC XTRCS NJXS PROF SVCS 71603 LAILA LAILA ALLG 2 RENKUA RENUKA IMMNTX X W/PRV ALLGIC XTRCS NJXS INJ J0702 AUSTENMARIE JIMENEZ BETAMETHA 2 BARBARA BARBARA SONE ACETATE & PHOSPHATE 3 MG PROF SVCS 54888 LAILA LAILA ALLG 2 RENUKA RENUKA IMMNTX X W/PRV ALLGIC XTRCS NJXS PROF SVCS 44716 LAILA LAILA ALLG 2 RENUKA RENUKA IMMNTX X W/PRV ALLGIC XTRCS NJXS INJ J0702 TONY JIMENEZ BETAMETHA 2 BARBARA BARBARA SONE ACETATE & PHOSPHATE 3 MG PROF SVCS 62701 LAILA LAILA ALLG 2 RENUKA RENUKA IMMNTX X W/PRV ALLGIC XTRCS NJXS PROF SVCS 74410 LAILA LAILA ALLG 2 RENUKA RENUKA IMMNTX X W/PRV ALLGIC XTRCS NJXS PROF SVCS 26530 LAILA LAILA ALLG 2 RENUKA RENUKA IMMNTX X W/PRV ALLGIC XTRCS NJXS PROF SVCS 96515 LAILA LAILA ALLG 2 RENUKA RENKUA IMMNTX X W/PRV ALLGIC XTRCS NJXS PROF SVCS 17327 LAILA LAILA ALLG 2 RENUKA RENUKA IMMNTX X W/PRV ALLGIC XTRCS NJXS PROF SVCS 13076 LAILA LAILA ALLG 2 RENUKA RENUKA IMMNTX X W/PRV ALLGIC XTRCS NJXS PROF SVCS 46942 LAILA LAILA ALLG 2 RENUKA RENUKA IMMNTX X W/PRV ALLGIC XTRCS NJXS ANES 20266 [facility]UR[facility] CASPER LOWER 2 ANESTHESI BARBARA INTESTINE A PSC ENDOSCOPY DISTAL DUODENUM PROF [facility] 80909 LAILA LAILA ALLG 2 RENUKA RENUKA IMMNTX X W/PRV ALLGIC XTRCS NJXS PROF [facility] 85793 LAILA LAILA ALLG 2 RENUKA RENUKA IMMNTX X W/PRV ALLGIC XTRCS NJXS PROF [facility] 02379 LAILA LAILA ALLG 2 RENUKA RENUKA IMMNTX X W/PRV ALLGIC XTRCS NJXS PROF [facility] 08556 LAILA LAILA ALLG 2 RENUKA RENUKA IMMNTX X W/PRV ALLGIC XTRCS NJXS INJECTION J1040 LAILA LAILA 2 RENUKA RENUKA METHYLPRE DNISOLONE ACETATE 80 MG THERAPEUT 87977 LAILA LAILA IC 2 RENUKA RENUKA PROPHYLAC TIC/DX INJECTION SUBQ/IM PROF [facility] 62873 LAILA LAILA ALLG 2 RENUKA RENUKA IMMNTX X W/PRV ALLGIC XTRCS NJXS PROF [facility] 91022 LAILA LAILA ALLG 2 RENUKA RENUKA IMMNTX X W/PRV ALLGIC XTRCS NJXS PROF [facility] 00016 LAILA LAILA ALLG 2 RENUKA RENUKA IMMNTX X W/PRV ALLGIC XTRCS NJXS OPHTH [address] [facility] MEDICAL 2 MEDICAL SHE XM&EVAL SERV INTERMEDI FOUNDATIO ATE ESTAB PT COMPUTERI 45778 [place] [facility] ZED 2 MEDICAL SHE OPHTHALMI SERV C IMAGING FOUNDATIO OPTIC NERVE PROF [facility] 28327 LAILA LAILA ALLG 2 RENUKA RENUKA IMMNTX X W/PRV ALLGIC XTRCS NJXS PROF [facility] 99828 LAILA LAILA ALLG 2 RENUKA RENUKA IMMNTX X W/PRV ALLGIC XTRCS NJXS PROF [facility] 15240 LAILA LAILA ALLG 2 RENUKA RENUKA IMMNTX X W/PRV ALLGIC XTRCS NJXS PREPJ& 80878 LAILA LAILA ALLERGEN 2 RENUKA RENUKA IMMUNOTHE RAPY 1/[place] [address] LAILA LAILA ALLG 2 RENUKA RENUKA IMMNTX X W/[place] [address] LAILA LAILA ALLG 2 RENUKA RENUKA IMMNTX X W/[place] [address] LAILA LAILA ALLG 2 RENUKA RENUKA IMMNTX X W/[place] [address] LAILA LAILA ALLG 2 RENUKA RENUKA IMMNTX X W/[place] [address] LAILA LAILA ALLG 2 RENUKA RENUKA IMMNTX X W/[place] [address] LAILA LAILA ALLG 2 RENUKA RENUKA IMMNTX X W/[place] [address] LAILA LAILA ALLG 2 RENUKA RENUKA IMMNTX X W/[place] [address] LAILA LAILA ALLG 2 RENUKA RENUKA IMMNTX X W/[place] [address] LAILA LAILA ALLG 2 RENUKA RENUKA IMMNTX X W/[place] [address] LAILA LAILA ALLG 2 RENUKA RENUKA IMMNTX X W/[place] [address] LAILA LAILA ALLG 2 RENUKA RENUKA IMMNTX X W/PRV ALLGIC XTRCS NJXS PREPJ& 68159 LAILA LAILA ALLERGEN 2 RENUKA RENUKA IMMUNOTHE RAPY 1/[place] [address] LAILA LAILA ALLG 2 RENUKA RENUKA IMMNTX X W/PRV ALLGIC XTRCS NJXS PROF [facility] 03516 LAILA LAILA ALLG 2 RENUKA RENUKA IMMNTX X W/PRV ALLGIC XTRCS NJXS PROF SVCS 82096 LAILA LAILA ALLG 2 RENUKA RENUKA IMMNTX X W/PRV ALLGIC XTRCS NJXS PROF SVCS 26599 LAILA LAILA ALLG 2 RENUKA RENUKA IMMNTX X W/[place] [address] LAILA LAILA ALLG 2 RENUKA RENUKA IMMNTX X W/[place] [address] LAILA LAILA ALLG 2 RENUKA RENUKA IMMNTX X W/[place] [address] LAILA LAILA ALLG 2 RENUKA RENUKA IMMNTX X W/PRV [place] [address] LAILA LAILA ALLG 2 RENUKA RENUKA IMMNTX X W/PRV ALLGIC XTRCS NJXS PREPJ& 97451 LAILA LAILA ALLERGEN 2 RENUKA RENUKA IMMUNOTHE RAPY 1/SEED BUYER ANTIGEN PROF SVCS 40390 LAILA LAILA ALLG 2 RENUKA RENUKA IMMNTX X W/PRV ALLGIC XTRCS NJXS PROF SVCS 38658 LAILA LAILA ALLG 1 RENUKA RENUKA IMMNTX X W/[place] [address] LAILA LAILA ALLG 1 RENUKA RENUKA IMMNTX X W/PRV ALLGIC XTRCS NJXS PROF SVCS 65532 LAILA LAILA ALLG 1 RENUKA RENUKA IMMNTX X W/PRV ALLGIC XTRCS NJXS PROF SVCS 94831 LAILA LAILA ALLG 1 RENUKA RENUKA IMMNTX X W/PRV ALLGIC XTRCS NJXS PROF SVCS 22182 LAILA LAILA ALLG 1 RENUKA RENUKA IMMNTX X W/PRV ALLGIC XTRCS NJXS PROF SVCS 42233 LAILA LAILA ALLG 1 RENUKA RENUKA IMMNTX X W/PRV ALLGIC XTRCS NJXS PROF [facility] 50462 LAILA LAILA ALLG 1 RENUKA RENUKA IMMNTX X W/PRV ALLGIC XTRCS NJXS PROF [facility] 77366 LAILA LAILA ALLG 1 RENUKA RENUKA IMMNTX X W/PRV ALLGIC XTRCS NJXS PROF [facility] 45728 LAILA LAILA ALLG 1 RENUKA RENUKA IMMNTX X W/PRV ALLGIC XTRCS NJXS PROF [facility] 76481 LAILA LAILA ALLG 1 RENUKA RENUKA IMMNTX X W/PRV ALLGIC XTRCS NJXS PROF [facility] 92410 LAILA LAILA ALLG 1 RENUKA RENUKA IMMNTX X W/PRV ALLGIC XTRCS NJXS OPHTH 95170 [place] [address] MEDICAL SHE XM&EVAL SERV COMPRHNSV FOUNDATIO ESTAB PT 1/> PROF [facility] 73470 LAILA LAILA ALLG 1 RENUKA RENUKA IMMNTX X W/PRV ALLGIC XTRCS NJXS THERAPEUT 20897 LAILA LAILA IC 1 RENUKA RENUKA PROPHYLAC TIC/DX INJECTION SUBQ/IM INJECTION J1040 LAILA LAILA 1 RENUKA RENUKA METHYLPRE DNISOLONE ACETATE 80 MG PROF [facility] 98149 LAILA LAILA ALLG 1 RENUKA RENUKA IMMNTX X W/PRV ALLGIC XTRCS NJXS PREPJ& 47004 LAILA LAILA ALLERGEN 1 RENUKA RENUKA IMMUNOTHE RAPY 1/SEED BUYER ANTIGEN PROF [facility] 49611 LAILA LAILA ALLG 1 RENUKA RENUKA IMMNTX X W/PRV ALLGIC XTRCS NJXS PROF [facility] 03153 LAILA LAILA ALLG 1 RENUKA RENUKA IMMNTX X W/PRV ALLGIC XTRCS NJXS PROF [facility] 26354 LAILA LAILA ALLG 1 RENUKA RENUKA IMMNTX X W/PRV ALLGIC XTRCS NJXS PROF [facility] 06979 LAILA LAILA ALLG 1 RENUKA RENUKA IMMNTX X W/PRV ALLGIC XTRCS NJXS THERAPEUT 10736 LAILA LAILA IC 1 RENUKA RENUKA PROPHYLAC TIC/DX INJECTION SUBQ/IM INJECTION J2010 LAILA LAILA 1 RENUKA RENUKA LINCOMYCI N HCL UP TO 300 MG INJECTION J1040 LAILA LAILA 1 RENUKA RENUKA METHYLPRE DNISOLONE ACETATE 80 MG PROF SVCS 69539 LAILA LAILA ALLG 1 RENUKA RENUKA IMMNTX X W/PRV ALLGIC XTRCS NJXS PROF SVCS 42705 LAILA LAILA ALLG 1 RENUKA ERNUKA IMMNTX X W/PRV ALLGIC XTRCS NJXS PROF SVCS 90993 LAILA LAILA ALLG 1 RENUKA RENUKA IMMNTX X W/PRV ALLGIC XTRCS NJXS PROF SVCS 87068 LAILA LAILA ALLG 1 RENUKA RENUKA IMMNTX X W/PRV ALLGIC XTRCS NJXS PROF SVCS 39674 LAILA LAILA ALLG 1 RENUKA RENUKA IMMNTX X W/PRV ALLGIC XTRCS NJXS PREPJ& 12083 LAILA LAILA ALLERGEN 1 RENUKA RENUKA IMMUNOTHE RAPY 1/SEED BUYER ANTIGEN DEMO&/BOZENA 23517 LAILA LAILA L OF PT 1 RENUKA RENUKA UTILIZ AERSL GEN/NEB/I NHLR/IP PERCUTANE 67369 LAILA LAILA OUS TESTS 1 RENUKA RENUKA W/ALLERGE RENETTA EXTRACTS INTRACUTA 58833 LAILA LAILA NEOUS 1 RENUKA RENUKA TESTS W/ALLERGE RENETTA EXTRACTS COLLECTIO 97027 [facility] N VENOUS 1 [facility] BLOOD INC INC VENIPUNCT URE ALLERGEN 68513 [facility] SPECIFIC 1 [facility] IGE INC INC WILIAN/SEMI WILIAN EA ALLERGEN BRNCDILAT 33616 LAILA LAILA RSPSE 1 RENUKA RENUKA SPMTRY PRE&POST- BRNCDILAT ADMN ALBUTEROL J7620 LAILA LAILA TO 2.5 1 RENUKA RENUKA MG & IPRATROPI UM BROM TO 0.5 MG Encounters Encounter Start End Date Code Location Performer Type Date OFFICE 40213 [facility] OUTPATIEN 7 7 [facility] T [facility] [place] 25 CO MINUTES EMERGENCY 45749 [facility] 7 7 [facility] DEPARTMEN INC T VISIT MODERATE SEVERITY EMERGENCY 78454 MECCA HOANG DEPT 7 7 PHYSICIAN VISIT S, [facility] HIGH SEVER[facility]& THREAT [facility] - 7 7 [facility] OUTPATIEN INC T OFFICE 23616 [facility]ER[facility] HIGH OUTPATIEN 7 7 PARTNERS T V[facility] OF [place] 40 CO MINUTES OFFICE 49047 TONY MCKEONPATIEN 7 7 T VISIT 15 MINUTES OFFICE 26581 TONY JIMENEZ OUTPATIEN 6 6 BARBARA BARBARA T VISIT 15 MINUTES OFFICE 92788 [facility] MAR OUTPATIEN 6 6 [facility]ERS T [facility] [place] 25 CO MINUTES OFFICE 32400 TONY JIMENEZ OUTPATIEN 6 6 BARBARA BARBARA T VISIT 15 MINUTES OFFICE 33743 [facility] MAR OUTPATIEN 6 6 [facility] [place] 25 CO MINUTES OFFICE 22821 [facility] 6 N T VISIT NEUROLOGY 10 MINUTES [facility] - 6 6 N OUTPATIEN COMMUNTIY T HOSPITA OFFICE 87046 [facility] 6 6 [place] BARBARA T VISIT ONCOLOGY 15 & MINUTES [facility] - 6 6 N OUTPATIEN COMMUNTIY T HOSP[facility] OFFICE 12778 [facility] 6 6 N T VISIT NEUROLOGY 25 MINUTES OFFICE 95468 [facility] OUT[facility] 6 6 [facility] BARBARA T VISIT ONCOLOGY 15 & MINUTES OFFICE 10886 [facility] OUTPATIEN 5 5 PARTN[facility] T VISIT [facility] [place] 25 CO MINUTES [facility] - 5 5 N OUTPATIEN COMMUNTIY T HOSPITA OFFICE 22208 [place] [facility] OUTPATI[facility] 5 5 [place] BARBARA T VISIT ONCOLOGY 15 & MINUTES OFFICE 90757 [facility] TON[facility] OUTPATI[facility] 5 5 [facility] BARBARA T VISIT 15 MINUTES [facility] - 5 5 [facility] OUTPATIEN INC T OFFICE 13373 TONY JIMENEZ OUTPATIEN 5 5 [facility] BARBARA T VISIT 15 MINUTES [facility] - 5 5 N OUTPATIEN COMMUNTIY T [facility] 07992 [facility] [place] BARBARA T VISIT ONCOLOGY 15 & MINUTES OFFICE 01668 [facility] OUTPATIEN 5 5 PARTNERS T VISIT OF [place] 25 CO MINUTES OFFICE 90965 [facility] OUTPATIEN 5 5 [facility]NERS T VISIT OF [place] 25 CO MINUTES [facility] - 5 5 N OUTPATIEN COMMUNTIY T HOSPITA [facility] - 5 5 N OUTPATIEN COMMUNTIY T HOSPITA [facility] 29607 [facility] [place] BARBARA T NEW 45 ONCOLOGY MINUTES & [facility] - 5 5 N OUTPATIEN COMMUNTIY T HOSPITA [facility] - 5 5 N OUTPATIEN COMMUNTIY T HOSPITA OFFICE 96674 [facility] OUTPATIEN 5 5 N T NEW 45 NEUROLOGY MINUTES [facility] - 5 5 N OUTPATIEN COMMUNTIY T HOSPITA OFFICE 80749 [facility] OUTPATIEN 5 5 PARTNERS T VISIT OF [place] 25 CO MINUTES OFFICE 62349 TONY JIMENEZ OUTPATIEN 5 5 BARBARA BARBARA T VISIT 15 MINUTES OFFICE 84856 TONY JIMENEZ OUTPATIEN 5 5 BARBARA BARBARA T VISIT 15 MINUTES OFFICE 60612 [facility] JACKSON OUTPATIEN 5 5 PHYSICIAN MAX T VISIT S GROUP 15 MINUTES OFFICE 09969 [facility] 5 5 [facility] MINUTES P [facility] - 5 5 [facility] OUTPATIEN INC T OFFICE 43465 [facility] OUTPATIEN 5 5 MAX MAX T VISIT 15 MINUTES OFFICE 49430 LAILA LAILA OUTPATIEN 5 5 RENUKA RENUKA T VISIT 15 MINUTES [facility] 5 [facility]PATI[facility] T OFFICE 78755 [facility] OUTPATIEN 5 5 [facility] 15 MINUTES OFFICE 56466 [facility] JACKSON OUTPATIEN 5 5 MAX MAX T VISIT 10 MINUTES OFFICE 12470 [facility] 4 4 [facility] MINUTES P [facility] 4 4 [facility] OUTPATI[facility] INC T OFFICE 23473 [facility] JACKSON OUTPATIEN 4 4 MAX MAX T VISIT 25 MINUTES OFFICE 63628 [facility] 4 4 [facility] 15 P MINUTES OFFICE 72350 JACK[facility] JACKSON OUTPATIEN 4 4 MAX MAX T NEW 30 MINUTES OFFICE 77938 AUSTENMARIE TONY OUTPATIEN 4 4 BARBARA BARBARA T VISIT 15 MINUTES OFFICE 03245 TONY STEWARD 4 4 BARBARA BARBARA T VISIT 15 MINUTES OFFICE 91309 [facility] COOK MENG STEWARD 4 4 [facility] 15 MINUTES OFFICE 66643 LAILA STEWARD 4 4 RENUKA RENUKA T VISIT 25 MINUTES OFFICE 38130 TONY STEWARD 4 4 BARBARA BARBARA T VISIT 15 MINUTES EMERGENCY 68362 [facility] BOOM 4 4 DANA JESSICA DEPARTMEN EMERGENCY T VISIT PHYS MODERATE SEVERITY EMERGENCY 55458 [facility] 4 4 DANA JESSICA DEPARTMEN EMERGENCY T VISIT PHYS HIGH/URGE NT SEVERITY OFFICE 59622 TONY STEWARD 4 4 BARBARA BARBARA T VISIT 15 MINUTES OFFICE 91778 LAILA STEWARD 4 4 RENUKA RENUKA T VISIT 40 MINUTES OFFICE 11078 TONY STEWARD 4 4 BARBARA BARBARA T VISIT 15 MINUTES OFFICE 83634 [facility] STEWARD 4 4 [facility] 10 P MINUTES OFFICE 97112 LAILA STEWARD 4 4 RENUKA RENUKA T VISIT 25 MINUTES OFFICE 37015 TONY STEWARD 4 4 BARBARA BARBARA T VISIT 15 MINUTES OFFICE 59928 TONY STEWARD 3 3 BARBARA BARBARA T VISIT 15 MINUTES OFFICE 13980 TONY STEWARD 3 3 BARBARA BARBARA T VISIT 15 MINUTES OFFICE 38472 [facility] STEWARD 3 3 [facility] 10 P MINUTES OFFICE 19001 [facility] 3 [facility] 15 P MINUTES OFFICE 32287 TONY STEWARD 3 3 BARBARA BARBARA T VISIT 15 MINUTES OFFICE 33082 LAILA ULLOA OUTPATIEN 3 3 RENUKA GRAYSON T VISIT 25 MINUTES OFFICE 89974 [facility] STEWARD 3 3 [facility] 15 P MINUTES OFFICE 86870 TONY STEWARD 3 3 BARBARA BARBARA T VISIT 15 MINUTES OFFICE 95588 TONY STEWARD 3 3 BARBARA BARBARA T VISIT 15 MINUTES OFFICE 54296 TONY JIMENEZ OUTPATIAUNG 3 3 BARBARA BARBARA T VISIT 15 MINUTES [facility] 3 3 [facility] OUTPATIEN INC T OFFICE 12596 TONY STEWARD 3 3 BARBARA BARBARA T VISIT 15 MINUTES EMERGENCY 64212 SERENA GOODRICH 3 3 EMERGENCY DEPARTMEN SERVICES T VISIT HIGH/URGE NT SEVERITY EMERGENCY 28118 [facility] 3 3 [facility] DEPARTMEN INC T VISIT LOW/MODER SEVERITY OFFICE 75473 LAILA ULLOA OUTPATIEN 3 3 RENUKA GRAYSON T VISIT 15 MINUTES OFFICE 46003 TONY STEWARD 3 3 BARBARA BARBARA T VISIT 15 MINUTES OFFICE 31304 LAILA ULLOA OUTPATIEN 3 3 RENUKA GRAYSON T VISIT 15 MINUTES OFFICE 93081 TONY STEWARD 3 3 BARBARA BARBARA T VISIT 15 MINUTES OFFICE 48644 TONY STEWARD 2 2 BARBARA BARBARA T VISIT 15 MINUTES OFFICE 16653 TONY STEWARD 2 2 BARBARA BARBARA T VISIT 15 MINUTES OFFICE 80700 LAILA ULOLA OUTPATIAUNG 2 2 RENUKA GRAYSON T VISIT 15 MINUTES OFFICE 70996 TONY STEWARD 2 2 BARBARA BARBARA T VISIT 15 MINUTES OFFICE 96042 TONY JIMENEZ OUTPATIEN 2 2 BARBARA BARBARA T VISIT 15 MINUTES OFFICE 94877 CJ COOK MENG OUTPATIEN 2 2 VISION T VISIT 15 MINUTES OFFICE 78087 TONY JIMENEZ OUTPATIEN 2 2 BARBARA BARBARA T VISIT 15 MINUTES OFFICE 71699 TONY JIMENEZ OUTPATIEN 2 2 BARBARA BARBARA T VISIT 15 MINUTES OFFICE 97036 CJ COOK MENG OUTPATIEN 2 2 VISION T VISIT 15 MINUTES OFFICE 39760 LAILA LAILA OUTPATIEN 2 2 RENUKA RENUKA T VISIT 15 MINUTES OFFICE 90519 [facility] BARCENAS OUTPATIEN 1 1 [facility] 20 HOSPITAL MINUTES P OFFICE 89661 AUSTENMARIE JIMENEZ OUTPATIEN 1 1 BARBARA BARBARA T VISIT 15 MINUTES OFFICE [id number] LAILA LAILA OUTPATIEN 1 1 R[facility] RENUKA T VISIT 15 MINUTES OFFICE [id number] LAILA LAILA OUTPATIEN 1 1 RENUKA RENUKA T VISIT 15 MINUTES OFFICE [id number] AUSTENMARIE TONY OUTPATIEN 1 1 BARBARA BARBARA T VISIT 15 MINUTES OFFICE [id number] LAILA LAILA OUTPATIEN 1 1 R[facility]UKA RENUKA T VISIT 15 MINUTES [facility] 1 [facility] T OFFICE [id number] LAILA LAILA OUTPATIEN 1 1 RENUKA RENUKA T NEW 45 MINUTES
--- OUTSIDE RECORDS SUMMARY | 2017-04-10 17:11 | External Medical Summary Rpt ---
Author Author , DANY Organization DANY Address Unknown Phone [email or web address] Care Team Providers Care Senior Supplier Quality Engineer Name Role Phone SINGH ELVI, SINGH Unavailable Unavailable ELVI [facility] Unavailable Unavailable [place], [facility] [place] [facility] Unavailable Unavailable [facility], [facility] ARNOLD, ARNOLD Unavailable Unavailable ARNOLD BARBARA, ARNOLD Unavailable Unavailable BARBARA ARNOLD BARBARA, ARNOLD Unavailable Unavailable BARBARA DUCKWORTH, DUCKWORTH Unavailable Unavailable CASPER BARBARA, CASPER Unavailable Unavailable BARBARA [facility] Unavailable Unavailable ONCOLOGY &, [facility] & CHIPPS TONY & Unavailable Unavailable DUBILIER, CHIPPS TONY & DUBILIER [facility], Unavailable Unavailable [facility] Unavailable Unavailable [facility] DEMI, Unavailable Unavailable [facility] NARINDER JR MARYANN, NARINDER Unavailable Unavailable JR MARYANN [facility], Unavailable Unavailable [facility] Un[facility] Unavailable [facility], [facility] WRIGHT ANNETTE, WRIGHT ANNETTE Unavailable Unavailable BOOM JESSICA, BOOM Unavailable Unavailable JESSICA [facility] Unavailable Unavailable [facility], [facility], Unavailable [facility]available [facility] Unavailable Unavailable INC, [facility] Unavailable [facility]available HOSPITAL P, [facility] COOK MENG, COOK MENG Unavailable Unavailable [facility], Unavailable Unavailable [facility] HOANG, HOANG Unavailable Unavailable FRIAS SUSANNA, FRIAS Unavailable Unavailable SUSANNA RUSLAN III JULIETA, Unavailable Unavailable RUSLAN III JULIETA [facility] Unavailable Unavailable [facility], [facility], Unavailable Unavailable [facility] Un[facility] Un[facility] JACKSON MAX, JACKSON Unavailable Unavailable MAX JACKSON MXA, JACKSON Unavailable Unavailable MAX LINDA JULIANE, LINDA Unavailable Unavailable JULIANE HENNESSY JR, MINOO JR Unavailable Unavailable MINOO JR DWI, MINOO Unavailable Unavailable JR DWI LAILA RENUKA, Unavailable Unavailable LAILA RENUKA LAILA RENUKA, Unavailable Unavailable LAILA RENUKA MYHAND BARBARA, MYHAND Unavailable Unavailable BARBARA [facility] Unavailable Unavailable [facility], [facility] PSC COLUNGA PUMA, COLUNGA Unavailable Unavailable [...] PSC KYRA SELWYN, KYRA Unavailable Unavailable SELWYN [facility] Unavailable Unavailable DEPT BILL, [facility] DEPT BILL [facility] Unavailable [facility]available DEPT BILL, [facility] HIGH, HIGH Unavailable Unavailable HIGH MAR, HIGH MAR Unavailable Unavailable Purpose Continuity of Care Document - 01-10-2011 through 2016 Problems Code Diagnosis DOS Provider Status J301 ALLERGIC 12-21-2016 [facility] RH[facility]IS [facility] DUE TO [place] POLLEN J3089 OTHER 12-21-2016 [facility] ALLERGIC [facility] RHINITIS [place] J4530 MILD 12-21-2016 [facility] PERSISTENT PARTNERS OF ASTHMA [place] UNCOMPLICAT ED Z17891 ALLERGY TO 12-21-2016 [facility] OTHER FOODS [facility] [place] K521 TOXIC 11-29-2016 [facility] COLITIS R002 PALPITATION 11-29-2016 [facility] R079 CHEST PAIN 11-29-2016 [facility] Z720 TOBACCO USE 11-29-2016 [facility] P Q27290 CHOROIDAL 10-06-2016 [facility] RUPTURE SERV UNSPECIFIED FOUNDATION EYE [id number] GLAUC SEC 10-06-2016 [facility] TRAUMA SERV RT EYE FOUNDATION INDETERMINA TE STAGE Z961 PRESENCE OF 10-06-2016 [facility] INTRAOCULAR [facility] LENS J209 ACUTE 09-14-2016 [facility] BRONCHITIS PART[facility] OF UNSPECIFIED [place] Z23 ENCOUNTER 08-10-2016 [facility] IMMUNIZATIO [facility] DEPT N BILL J0190 ACUTE 06-17-2016 ARNOLD BARBARA SINUSITIS UNSPECIFIED J310 CHRONIC 05-20-2016 [facility] RHINITIS PARTN[facility] OF [place] I10 ESSENTIAL 03-18-2016 [facility] PRIMARY PARTN[facility] OF HYPERTENSIO [place] N J4520 MILD 03-18-2016 [facility] INTERMITTEN PARTNERS OF T ASTHMA [place] UNCOMPLICAT ED E930ZCP OTHER 03-18-2016 [facility] ADVERSE PARTNERS OF FOOD [place] REACTIONS NEC SUBSEQUENT ENC E538 DEFICIENCY 01-26-2016 [facility] OTHER NEUROLOGY SPECIFIED B GROUP VITAMINS 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 J3081 ALLERG 01-01-2016 [facility] RH[facility]IS [facility] D/T ANIMAL [place] CAT DOG HAIR & DANDER W93041 OTHER 12-31-2015 [facility] WHITE BLOOD HOSPITA CELL COUNT A630 ANOGENITAL 12-16-2015 [facility] P[facility] Z302 ENCOUNTER 12-16-2015 NEW FOR [facility] PSC ON T28087 MUSCLE 09-29-2015 [facility] SPASM OF NEUROLOGY BACK R748 ABNORMAL 08-04-2015 [facility] LEVELS OF COMMUNTI OTHER SERUM HOSPITA ENZYMES R749 ABNORMAL 08-04-2015 [facility] [place] ENZYME ONCOLOGY & LEVEL UNSPECIFIED L089 LOCAL INF 07-25-2015 AUSTENMARIE BARBARA THE SKIN & SUBCUTANEOU S TISSUE UNS T13087 PAIN IN 07-13-2015 [facility] R0781 PLEURODYNIA 07-13-2015 [facility] [id number] CONTUSION 07-13-2015 TONY BARBARA UNS FRONT WALL THORAX INITIAL ENCNTR Z043 ENCOUNTER 07-13-2015 [place] EXAM & MEDICAL OBSERVATION [facility]ING ASS FOLLOW OTH ACCIDENT M5032 OTH CERV 06-08-2015 [facility] [place] [facility] DEGENERATIO N MID-CERVICA L REGION R209 UNSPECIFIED 06-08-2015 [facility]ANCE [facility] S OF SKIN SENSATION W96779 OTHER 06-08-2015 [facility] SYMPTOMS & COMMUNTIY SIGNS HOSPITA INVOLVING THE NS R938 ABNORMAL 06-08-2015 [facility] FIND ON DX COMMUNTIY IMAGING OTH HOSPITA SPEC BODY STRCT 2662 OTHER 06-01-2015 [facility] B-COMPLEX NEUROLOGY DEFICIENCIE S 7964 OTHER 06-01-2015 [facility] ABNORMAL [place] [facility] & FINDING 4770 ALLERGIC 05-29-2015 [facility] RHINITIS PARTNERS OF DUE TO [place] POLLEN 4772 ALLERGIC 05-29-2015 [facility] RHINITIS PARTNERS OF DUE TO [place] ANIMAL HAIR AND DANDER 4778 ALLERGIC 05-29-2015 [facility] RHINITIS PARTNERS OF DUE TO [place] OTHER ALLERGEN 2704 DISTURBANCE 05-26-2015 [facility] S NEUROLOGY SULPHUR-JOHN PAUL R AMINO-ACID METABOLISM 00578 OTH 05-26-2015 [facility] SYMPTOMS NEUROLOGY INVLV NERV&MUSCUL OSKELETAL SYSTEMS 7820 DISTURBANCE 05-26-2015 [facility] OF SKIN NEUROLOGY SENSATION 7937 NONSPC ABN 05-26-2015 [facility] FINDNG RAD NEUROLOGY & OTH EXM MUSCULSKELT L SYS V1552 PERSONAL 05-18-2015 [facility] HISTORY OF COMMUNTIY TRAUMATIC HOSPITA BRAIN INJURY 4739 UNSPECIFIED 05-06-2015 [facility] SINUSITIS PARTNERS OF [place] 9953 ALLERGY 05-06-2015 ALLERGY UNSPECIFIED PARTNERS OF NOT [place] ELSEWHERE CLASSIFIED 3829 UNSPECIFIED 04-11-2015 ARNOLD BARBARA OTITIS MEDIA 4619 ACUTE 04-11-2015 ARNOLD BARBARA SINUSITIS, UNSPECIFIED 4659 ACUTE URIS 03-28-2015 ARNOLD BARBARA OF UNSPECIFIED SITE 25763 [place] 03-03-2015 ID MEDICAL ASSOCIATED SERV WITH OCULAR FOUNDATION TRAUMA 65839 INDETERMINA 03-03-2015 ID MEDICAL TE STAGE SERV [facility]OUNDATION 4779 ALLERGIC 02-05-2015 [facility] RHINITIS PHYSICIANS CAUSE GROUP UNSPECIFIED 01549 IMPOTENCE 12-30-2014 [facility] P 470 DEVIATED 11-13-2014 COMM[facility]ITY NASAL ANESTH OF SEPTUM THE BLUE 11933 OTHER 11-11-2014 [place] DISEASES OF [facility] P CAVITY AND SINUSES V7283 OTHER 11-11-2014 [facility] VE EXAMINATION 4730 CHRONIC 11-10-2014 JACKSON MAX MAXILLARY SINUSITIS 34517 OTHER 10-28-2014 LAILA CHRONIC RENUKA ALLERGIC CONJUNCTIVI TIS 44163 EXTRINSIC 10-28-2014 LAILA ASTHMA, RENUKA UNSPECIFIED 7840 HEADACHE 10-09-2014 [facility] 7842 SWELLING 10-09-2014 [facility] MASS OR MEDICAL LUMP IN IMAGING ASS HEAD AND NECK 40468 PRIMARY 09-23-2014 [facility] 4610 ACUTE 09-22-2014 JACKSON MAX MAXILLARY SINUSITIS 91577 UNSPECIFIED 08-26-2014 [facility] P 2163 BENIGN 08-21-2014 RENETTA SANTANA NEOPLASM [...] ASSOCIATES WITHOUT PSC MENTION OF COMPLICATIO N 24922 CONDYLOMA 07-30-2014 [facility] PSC 2382 NEOPLASM OF 07-30-2014 NEW [facility] SKIN 0794 HUMAN 07-22-2014 [facility] VIRUS IN HOSPITAL P CCE & UNS SITE 96145 PHOTOKERATI 06-30-2014 RENETTA SANTANA TIS 4660 ACUTE [...] N EMERGENCY RDS PHYS CAUSE POISN&TOX REACT 57902 [place] 02-25-2014 [facility] UNSPECIFIED FOUNDATIO 58467 EXTRINSIC 02-03-2014 LAILA ASTHMA, RENUKA WITH EXACERBATIO N 69160 ACUT 10-17-2013 LAILA SUPPRATV RENUKA OTITIS MEDIA W/O SPONT RUP EARDRUM 4780 HYPERTROPHY 10-17-2013 LAILA OF NASAL RENUKA TURBINATES 43137 SLOWING OF 07-02-2013 [facility] URINARY [facility] P 64434 OTHER 05-29-2013 [facility] DISORDER OF PSC BLADDER 37864 HYPERTROPHY 05-14-2013 [place] PROSTATE [facility] W/UR OBST & HOSPITAL P OTH LUTS 14524 URINARY 05-14-2013 [facility] P 23474 DYSFUNCTION 04-18-2013 LAILA OF RENUKA EUSTACHIAN TUBE 6011 CHRONIC 04-16-2013 [facility] PROSTATITIS [facility] P 12055 UNSPECIFIED 03-29-2013 TONY JIMENEZ URETHRITIS 10194 HEAD 03-29-2013 PROFESSIONA INJURY, L REHAB UNSPECIFIED ASSOC PSC 48281 SIMPLE/UNSP 10-18-2012 LAILA ECIFIED RENUKA CHRONIC SEROUS OTITIS MEDIA 3823 UNSPECIFIED 09-17-2012 LAILA CHRONIC RENUKA SUPPURATIVE OTITIS MEDIA V7651 SPECIAL 05-01-2012 [facility] SCREENING ANESTHESIA FOR PSC MALIGNANT NEOPLASMS COLON 27285 ACUTE 03-15-2012 LAILA SEROUS RENUKA OTITIS MEDIA 60643 UNSPECIFIED 02-17-2012 AUSTENMARIE BARBARA INFECTIVE OTITIS EXTERNA 1105 DERMATOPHYT 09-19-2011 AUSTENMARIE BARBARA OSIS OF THE BODY 44474 ING TAL 09-19-2011 TONY JIMENEZ W/O MENTION OBST/GANGRE N UNILAT/UNSP EC 462 ACUTE 09-15-2011 LAILA PHARYNGITIS RENUKA 2298 BENIGN 07-07-2011 [place] NEOPLASM OF [facility] P SPECIFIED SITES V7381 SPECIAL 07-07-2011 [place] SCREENING [facility] P HUMAN PAPILVIRUS 6869 UNSPEC 06-30-2011 AUSTENMARIE JIMENEZ LOCAL INFECTION SKIN&SUBCUT ANEOUS TISSUE 34706 OPEN ANGLE 06-21-2011 [place] [facility] WITH SERV BORDERLINE FOUNDATIO FINDINGS HIGH RISK 78411 ENTHESOPATH 03-18-2011 AUSTENMARIE BARBARA Y OF UNSPECIFIED SITE 4710 POLYP OF 01-10-2011 LAILA NASAL RENUKA CAVITY 97934 WHEEZING 01-10-2011 LAILA RENUKA 63214 ANAPHYLACTI 01-10-2011 [facility] RE[facility] [...] Procedure DOS Code Location Performer Comment NITRIC 36845 ALL[facility]GY HIGH OXIDE 7 PARTNERS OF [place] DETERMINA TION DEMO&/BOZENA 86218 ALLERGY HIGH L OF PT 7 PARTNERS UTILIZ OF [place] AERSL CO GEN/NEB/I NHLR/IP BRNCDILAT 27929 ALLERGY HIGH RSPSE 7 PARTNERS SPMTRY OF [place] PRE&[place] [address] [facility] TROPONIN 7 [facility] QUANTITAT INC INC LATIA ECG 60864 [facility] HENNESSY JR ROUTINE 7 [facility] W/LEAST P 12 LDS I&R ONLY RADIOLOGI 88260 [place] DUCKWORTH C 7 MEDICAL EXAMINATI IMAGING ON CHEST ASS SINGLE VIEW FRONTAL BLOOD 27923 [facility] COUNT 7 [facility] COMPLETE INC INC AUTO&AUTO DIFRNTL WBC CREATINE 35875 [facility] KINASE 7 [facility] TOTAL INC INC COMPREHEN 57624 [facility] SIVE 7 [facility] [place] [address] [facility] AMYLASE 7 [facility] INC INC CREATINE 56211 [facility] KINASE MB 7 [facility] [place] [place] [address] [facility] INFUSION 7 [facility] THERAPY/P INC INC ROPHYLAXI S /DX 1ST TO 1 [place] [address] [facility] LIPASE 7 [facility] INC INC ECG 18439 [facility] ROUTINE 7 [facility] ECG INC INC W/LEAST 12 LDS TRCG ONLY W/O I&[place] [address] [facility] THYROID 7 [facility] STIMULATI INC INC NG HORMONE TSH COMPUTERI 64895 [facility] ZED 7 MEDICAL OPHTHALMI SERV C IMAGING FOUNDATIO OPTIC N NERVE OPHTH 12533 [facility] 7 MEDICAL XM&EVAL SERV COMPRHNSV FOUNDATIO ESTAB PT N 1/> INJECTION J1040 ALLERGY HIGH 7 PARTNERS METHYLPRE OF [place] DNISOLONE CO ACETATE 80 MG BRNCDILAT 69706 ALLERGY HIGH RSPSE 7 PARTNERS SPMTRY OF [place] PRE&POST- CO BRNCDILAT ADMN DEMO&/BOZENA 40543 ALLERGY HIGH L OF PT 7 PARTNERS UTILIZ OF [place] AERSL CO GEN/NEB/I NHLR/IP NITRIC 66643 ALLERGY HIGH OXIDE 7 [facility] [place] GAS CO DETERMINA TION IIV4 VACC 22576 [facility] SPL[facility] VIRUS 0.5 HLTH DEPT HLTH DEPT ML DOS BLIL BILL FOR IM USE ADMINISTR G0008 [facility] ATION OF 6 [facility] DISTRICT INFLUENZA HLTH DEPT [facility] DEPT VIRUS BILL BILL VACCINE BRNCDILAT 07845 ALLERGY HIGH MAR RSPSE 6 PARTNERS SPMTRY OF [place] PRE&POST- CO BRNCDILAT ADMN NITRIC 63126 ALLERGY HIGH MAR OXIDE 6 PARTNERS OF [place] GAS CO DETERMINA TION DEMO&/BOZENA 76082 ALLERGY HIGH MAR L OF PT 6 PARTNERS UTILIZ OF [place] AERSL CO GEN/NEB/I NHLR/IP DEMO&/BOZENA 86347 ALLERGY HIGH MAR L OF PT 6 PARTNERS UTILIZ OF [place] AERSL CO GEN/NEB/I NHLR/IP NITRIC 99598 ALLERGY HIGH MAR OXIDE 6 PARTNERS OF [place] GAS CO DETERMINA TION BRNCDILAT 85530 ALLERGY HIGH MAR RSPSE 6 PARTNERS SPMTRY OF [place] PRE&POST- CO BRNCDILAT ADMN OPHTH 09485 [facility] 6 MEDICAL SHE XM&EVAL SERV COMPRHNSV FOUNDATIO ESTAB PT N 1/> PROF [facility] 30797 ALLERGY HIGH MAR ALLG 6 PARTNERS IMMNTX X OF [place] W/PRV CO ALLGIC XTRCS NJXS BLOOD [address] 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 COUNT 6 N N SMEAR COMMUNTIY COMMUNTIY MCRSCP HOSPITA HOSPITA W/MNL DIFRNTL WBC COUNT BLOOD [address] [facility] COUNT 6 N N COMPLETE COMMUNTIY COMMUNTIY [place] [address] [facility] FOLIC 6 N N ACID COMMUNTIY COMMUNTIY SERUM HOSPITA HOSPITA COLLECTIO 21984 [facility] MYHAND N VENOUS 6 [facility] BLOOD ONCOLOGY VENIPUNCT & URE CYANOCOBA [address] [facility] JENNIFER 6 N N VITAMIN COMMUNTIY COMMUNTIY B-12 HOSPITA HOSPITA VISUAL 56133 ID CHAVEZ FIELD XM 6 MEDICAL SHE UNI/BI SERV W/INTERP FOUNDATIO EXTENDED N EXAM OPHTH 44713 [facility] MEDICAL 6 MEDICAL SHE XM&EVAL SERV INTERMEDI [place] [address] ALLERGY HIGH MAR ALLG 6 PARTNERS IMMNTX X OF [place] W/PRV CO ALLGIC XTRCS NJXS PROF [facility] 65062 ALLERGY HIGH MAR ALLG 5 PARTNERS IMMNTX X OF [place] W/PRV CO ALLGIC XTRCS NJXS NITRIC 13545 ALLERGY HIGH MAR OXIDE 5 PARTNERS OF [place] GAS CO DETERMINA TION SPMTRY 50697 ALLERGY HIGH MAR W/VC 5 PARTNERS EXPIRATOR OF [place] Y PET[place] CO W/[place] [address] ALLERGY HIGH MAR ALLG 5 PARTNERS IMMNTX X OF [place] W/PRV CO ALLGIC XTRCS NJXS BLOOD [address] [facility] COUNT 5 N N SMEAR COMMUNTIY COMMUNTIY MCRSCP HOSPITA HOSPITA W/MNL DIFRNTL WBC COUNT BLOOD [address] [facility] COUNT 5 N N COMPLETE COMMUNTIY COMMUNTIY AUTOMATED HOSPITA HOSPITA RADEX 76505 NIRMALA NICHOLE RIBS 5 MEDICAL TAQUERIA UNILATERA IMAGING L 2 VIEWS ASS RADEX 85156 [facility] RIBS UNI 5 MEM HOS[facility] MEM HOS[facility] W/POSTERO INC INC ANT CH MINIMUM 3 VIEWS RADEX 35984 [facility] NICHOLE SHOULDER 5 MEDICAL TAQUERIA COMPLETE IMAGING MINIMUM 2 ASS VIEWS BLOOD [address] 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 HOMOCYSTE 5 N N INE COMMUNTIY COMMUNTIY HOSPITA HOSPITA BLOOD [address] [facility] COUNT 5 N N COMPLETE COMMUNTIY COMMUNTIY AUTO&AUTO HOSPITA HOSPITA DIFRNTL WBC COLLECTIO [address] [facility] N VENOUS 5 N N BLOOD COMMUNTIY COMMUNTIY VENIPUNCT HOSPITA HOSPITA URE ORGANIC [address] [facility] ACID 1 5 N N QUANTITAT COMMUNTIY COMMUNTIY LATIA HOSPITA HOSPITA MRI 12745 [facility] [place] RUSLAN SPINAL 5 RADIOLOGY III JULIETA CANAL CERVICAL W/O & W/CONTR MATRL INJECTION J3420 [facility] VIT B-12 5 N NEUROLOGY CYANOCOBA JENNIFER TO 1000 MCG THERAPEUT 97805 [facility] IC 5 N PROPHYLAC NEUROLOGY TIC/DX INJECTION SUBQ/IM THERAPEUT 75141 [facility] IC 5 N PROPHYLAC NEUROLOGY TIC/DX INJECTION SUBQ/IM INJECTION J3420 [facility] VIT B-12 5 N NEUROLOGY CYANOCOBA JENNIFER TO 1000 MCG INJECTION J3420 [facility] VIT B-12 5 N NEUROLOGY CYANOCOBA JENNIFER TO 1000 MCG THERAPEUT 36062 [facility] IC 5 N PROPHYLAC NEUROLOGY TIC/DX INJECTION SUBQ/IM PROF SVCS 42920 ALLERGY HIGH MAR ALLG 5 PARTNERS IMMNTX X OF [place] W/PRV CO ALLGIC XTRCS NJXS THERAPEUT 82595 [facility] IC 5 N PROPHYLAC NEUROLOGY TIC/DX INJECTION SUBQ/IM INJECTION J3420 [facility] VIT B-12 5 N NEUROLOGY CYANOCOBA JENNIFER TO 1000 MCG INJECTION J3420 [facility] VIT B-12 5 N NEUROLOGY CYANOCOBA JENNIFER TO 1000 MCG THERAPEUT 81514 [facility] IC 5 N PROPHYLAC NEUROLOGY TIC/DX INJECTION SUBQ/IM NERVE 40459 [facility] CONDUCTIO 5 N N STUDIES NEUROLOGY 9-10 STUDIES NEEDLE 91353 [facility] EMG EA 5 N EXTREMTY NEUROLOGY W/PARASPI NL AREA COMPLETE THERAPEUT 25993 [facility] IC 5 N PROPHYLAC NEUROLOGY TIC/DX INJECTION SUBQ/IM MRI 37546 [facility] [place] KOSTELIC SPINAL 5 RADIOLOGY MOSES CANAL CERVICAL W/O CONTRAST MATRL MRI BRAIN 97785 [facility] [place] KOSTEL[facility] BRAIN 5 RADIOLOGY MOSES STEM W/O CONTRAST MATERIAL INJECTION J3420 [facility] VIT B-12 5 N NEUROLOGY CYANOCOBA JENNIFER TO 1000 MCG INJECTION J3420 [facility] OSMIN VIT B-12 5 N NEUROLOGY CYANOCOBA JENNIFER TO 1000 MCG THERAPEUT 47624 [facility] IC 5 N PROPHYLAC NEUROLOGY TIC/DX INJECTION SUBQ/IM THERAPEUT 11471 [facility] O[facility] IC 5 N PROPHYLAC NEUROLOGY TIC/DX INJECTION SUBQ/[place] [address] [facility] HOMOCYSTE 5 N N INE COMMUNTIY COMMUNTIY HOSPITA HOSPITA BLOOD [address] [facility] COUNT 5 N N SMEAR COMMUNTIY COMMUNTIY MCRSCP HOSPITA HOSPITA W/MNL DIFRNTL WBC COUNT COLLECTIO [address] [facility] N VENOUS 5 N N BLOOD COMMUNTIY COMMUNTIY VENIPUNCT HOSPITA HOSPITA URE BLOOD [address] [facility] COUNT 5 N N COMPLETE COMMUNTIY COMMUNTIY AUTOMATED HOSPITA HOSPITA INJECTION J3420 [facility] OSM[facility] VIT B-12 5 N NEUROLOGY CYANOCOBA JENNIFER TO 1000 MCG ORGANIC [address] [facility] ACID 1 5 N N QUANTITAT COMMUNTIY COMMUNTIY LATIA HOSPITA HOSPITA PROTEIN [address] [facility] ELECTROPH 5 N N ORETIC COMMUNTIY COMMUNTIY FRACTJ&QU HOSP[place] [address] [facility] THIAMINE- 5 N N VITAMIN COMMUNTIY COMMUNTIY B-1 HOSPITA HOSPITA COLLECTIO [address] [facility] N VENOUS 5 N N BLOOD COMMUNTIY COMMUNTIY VENIPUN[place] [address] [facility] THYROID 5 N N STIMULATI COMMUNTIY COMMUNTIY NG HOSPITA HOSPITA HORMONE TSH CYANOCOBA [address] [facility] JENNIFER 5 N N VITAMIN COMMUNTIY COMMUNTIY B-[place] [address] [facility] FOLIC 5 N N ACID COMMUNTIY COMMUNTIY [place] [address] [facility] PYRIDOXAL 5 N N COMMUNTIY COMMUNTIY PHOSPHATE HOSPITA HOSPITA PROF [facility] 027[address] ALLERGY HIGH MAR ALLG 5 PARTNERS IMMNTX X OF COTTO W/PRV CO ALLGIC XTRCS [facility] INJ [id number] TONY JIMENEZ BETAMETHA 5 BARBARA BARBARA SONE ACETATE & PHOSPHATE 3 MG PROF [facility] 61304 LAILA LAILA ALLG 5 RENUKA RENUKA IMMNTX X W/PRV ALLGIC XTRCS [facility] OPHTH 49398 ROLANDO CHAVEZ MEDICAL 5 MEDICAL SHE XM&EVAL SERV COMPRHNSV FOUNDATIO ESTAB PT N 1/> COMPUTERI 08125 ROLANDO CHAVEZ ZED 5 MEDICAL SHE OPHTHALMI SERV C IMAGING FOUNDATIO OPTIC N NERVE PROF [facility] 12007 LAILA LAILA ALLG 5 RENUKA RENUKA IMMNTX X W/PRV ALLGIC XTRCS NJXS PROF [facility] 30752 LAILA LAILA ALLG 5 RENUKA RENUKA IMMNTX X W/PRV ALLGIC XTRCS NJXS PROF [facility] 46156 LAILA LAILA ALLG 5 RENUKA RENUKA IMMNTX X W/PRV ALLGIC XTRCS NJXS PROF [facility] 04131 LAILA LAILA ALLG 5 RENUKA RENUKA IMMNTX X W/PRV ALLGIC XTRCS [facility] ANESTHESI 74100 [facility] ANNETTE A NOSE & 5 ANESTH ACCESSORY OF THE SINUSES BLUE NOS COLLECTIO 33641 [facility] N VENOUS 5 [facility] BLOOD INC INC VENIPUNCT URE BLOOD 78994 [facility] COUNT 5 [facility] COMPLETE INC INC AUTO&AUTO DIFRNTL WBC ECG 28443 [facility] HENNESSY JR ROUTINE 5 [facility] W/LEAST P 12 LDS I&R ONLY ECG 74108 [facility] ROUTINE 5 [facility] ECG INC INC W/LEAST 12 LDS TRCG ONLY W/O I&R SPMTRY 31219 LAILA LAILA W/VC 5 RENUKA RENUKA EXPIRATOR Y PETRA W/WO MXML VOL VNTJ PROF [facility] 25485 LAILA LAILA ALLG 5 RENUKA RENUKA IMMNTX X [place] [address] NIRMALA NICHOLE MAXILLOFA 5 MEDICAL TAQU[place]IA CIAL W/O IMAGING CONTRAST ASS MATERIAL URNLS DIP 88867 [facility] SINGH 4 [facility] LET RGNT P NON-AUTO W/O MICRSCP ADJT TIS 20177 RENETTA JACKSON TRNS/REAR 4 MAX MAX GMT F/C/C/M/N /A/G/H/F 10SQCM/< [place] [address] [facility] INFUSION 4 [facility] THERAPY/P INC INC ROPHYLAXI S /DX 1ST TO 1 HR THERAPEUT 36797 [facility] IC 4 [facility] INJECTION [place] [address] [facility] INFUSION 4 [facility] THERAPY INC INC PROPHYLAX IS/DX EA HOUR ANES 04439 [facility] INTEG 4 ANESTH SELWYN MUSC & OF THE NRV HEAD BLUE NECK&[place] [address] [facility] SURG 4 [facility] PATHOLOGY INC INC GROSS&JESSICA ROSCOPIC EXAM PROF [facility] 62805 LAILA LAILA ALLG 4 RENUKA GRAYSON IMMNTX X W/PRV ALLGIC XTRCS [facility]XS ANESTHESI 45007 ANESTHESI COLUNGA A MALE 4 A PUMA GENITALIA ASSOCIATE INCL S PSC OPEN URETHRAL PX DSTRJ 76043 [facility] LESION 4 [facility] PENIS CLINIC [place] [address] [facility] PSC GROSS&JESSICA ROSCOPIC EXAM PROF [facility] 02936 LAILA LAILA ALLG 4 RENUKA RENUKA IMMNTX X W/PRV ALLGIC XTRCS NJ[facility] PREPJ& 94678 LAILA LAILA ALLERGEN 4 RENUKA RENUKA 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 [facility] 13171 LAILA LAILA ALLG 4 RENUKA RENUKA IMMNTX X W/PRV ALLGIC XTRCS NJXS SPMTRY 73728 LAILA LAILA W/VC 4 RENUKA RENUKA EXPIRATOR Y PETRA W/WO MXML VOL VNTJ PROF [facility] 72788 LAILA LAILA ALLG 4 RENUKA RENUKA IMMNTX X W/PRV ALLGIC XTRCS NJXS PROF [facility] 51362 LAILA LAILA ALLG 4 RENUKA RENUKA IMMNTX X W/PRV ALLGIC XTRCS NJXS INJ [id number] TONY JIMENEZ BETAMETHA 4 BARBARA BARBARA SONE ACETATE & PHOSPHATE 3 MG OPHTH 80864 [place] [facility]ICAL 4 MEDICAL SHE XM&EVAL SERV INTERMEDI FOUNDATIO ATE ESTAB PT GONIOSCOP 12559 [place] [facility] Y 4 MEDICAL SHE SEPARATE SERV PROCEDURE FOUNDATIO BRNCDILAT 13781 LAILA LAILA RSPSE 4 RENUKA RENUKA SPMTRY PRE&POST- BRNCDILAT ADMN INJECTION J1040 LAILA LAILA 4 RENUKA RENUKA METHYLPRE DNISOLONE ACETATE 80 MG INJECTION J2010 LAILA LAILA 4 RENUKA RENUKA LINCOMYCI N HCL UP TO 300 MG PRESSURIZ 03973 LAILA LAILA ED/NONPRE 4 RENUKA RENUKA SSURIZED INHALATIO N TREATMENT THERAPEUT 33257 LAILA LAILA IC 4 RENUKA RENUKA PROPHYLAC TIC/DX INJECTION SUBQ/IM DEMO&/BOZENA 01435 LAILA ALILA L OF PT 4 RENUKA RENUKA UTILIZ AERSL GEN/NEB/I NHLR/IP PROF [facility] 17128 LAILA LAILA ALLG 4 RENUKA RENUKA IMMNTX X W/PRV ALLGIC XTRCS NJXS COMPUTERI 70708 CYNSOFIAMICHAELA CJ BROWN 4 [facility] C[facility] C IMAGING OPTIC NERVE PROF [facility] 99330 LAILA LAILA ALLG 4 RENUKA RENUKA IMMNTX X W/PRV ALLGIC XTRCS NJXS PROF [facility] 85962 LAILA LAILA ALLG 4 RENUKA RENUKA IMMNTX X W/PRV ALLGIC XTRCS NJXS PROF [facility] 73331 LAILA LAILA ALLG 4 RENUKA RENUKA IMMNTX X W/PRV ALLGIC XTRCS 1 NJX PROF [facility] 59514 LAILA LAILA ALLG 4 RENUKA RENUKA IMMNTX X W/PRV ALLGIC XTRCS NJXS THERAPEUT 31221 LAILA ALILA IC 4 RENUKA RENUKA PROPHYLAC TIC/DX INJECTION SUBQ/IM INJECTION J2010 LAILA LAILA 4 RENUKA RENUKA LINCOMYCI N HCL UP TO 300 MG INJECTION J1040 LAILA LAILA 4 RENUKA RENUK[place] METHYLPRE DNISOLONE ACETATE 80 MG INJECTION J0696 TONY JIMENEZ 4 BARBARA BARBARA CEFTRIAXO NE SODIUM PER 250 MG PROF [facility] 41985 LAILA LAILA ALLG 4 RENUKA RENUKA IMMNTX X W/PRV ALLGIC XTRCS NJXS INJECTION J0696 TONY JIMENEZ 3 BARBARA BARBARA CEFTRIAXO NE SODIUM PER 250 MG PROF [facility] 83108 LAILA LAILA ALLG 3 RENUKA RENUKA IMMNTX X W/PRV ALLGIC XTRCS NJXS PROF [facility] 24508 LAILA LAILA ALLG 3 RENUKA RENUKA IMMNTX X W/PRV ALLGIC XTRCS NJXS PREPJ& 17455 LAILA LAILA ALLERGEN 3 RENUKA RENUKA 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 [facility] 47601 LAILA LAILA ALLG 3 RENUKA RENUKA IMMNTX X [place] [address] LAILA LAILA ALLG 3 RENUKA RENUKA IMMNTX X W/PRV ALLGIC XTRCS NJXS CYSTOURET 09567 RADU SINGH HROSCOPY 3 [facility] PSC ANES 08619 ANESTHESI FRIAS TRANSURET 3 A SUSANNA HRAL ASSOCIATE W/URETHRO S PSC CYSTOSCOP Y NOS PROF [facility] 57151 LAILA LAILA ALLG 3 RENUKA RENUKA IMMNTX X W/PRV ALLGIC XTRCS NJXS URNLS DIP [address] LET RGNT P NON-AUTO W/O MICRSCP PROF [facility] 04672 LAILA LAILA ALLG 3 RENUKA RENUKA IMMNTX X W/PRV ALLGIC XTRCS NJXS PROF [facility] 94196 LAILA LAILA ALLG 3 RENUKA RENUKA IMMNTX X W/PRV ALLGIC XTRCS NJXS PROF [facility] 33351 LAILA LAILA ALLG 3 RENUKA RENUKA IMMNTX X W/PRV ALLGIC XTRCS NJXS PROF [facility] 95819 LAILA LAILA ALLG 3 RENUKA RENUKA IMMNTX X W/PRV ALLGIC XTRCS NJXS THERAPEUT 27245 LAILA LAILA IC 3 RENUKA RENUKA PROPHYLAC TIC/DX INJECTION SUBQ/IM INJECTION J1040 LAILA LAILA 3 RENUKA RENUKA METHYLPRE DNISOLONE ACETATE 80 MG URNLS DIP [address] LET RGNT P NON-AUTO W/O MICRSCP PROF [facility] 34059 LAILA LAILA ALLG 3 RENUKA RENUKA IMMNTX X W/PRV ALLGIC XTRCS NJXS THERAPEUT 86996 PROFESSIO CROSSFIEL IC PX 1/> 3 NAL REHAB D DEMI AREAS ASSOC EACH 15 PSC MIN EXERCISES THERAPEUT 49344 PROFESSIO CROSSFIEL ACTVITY 3 NAL REHAB D DEMI DIRECT PT ASSOC CONTACT PSC EACH 15 MIN THERAPEUT 68223 PROFESSIO CROSSFIEL IC PX 1/> 3 NAL REHAB D DEMI AREAS ASSOC EACH 15 PSC MIN EXERCISES THERAPEUT 90343 PROFESSIO CROSSFIEL IC PX 1/> 3 NAL REHAB D DEMI AREAS ASSOC EACH 15 PSC MIN EXERCISES PROF SVCS 50352 LAILA LAILA ALLG 3 RENUKA RENUKA IMMNTX X W/PRV ALLGIC XTRCS NJXS THERAPEUT 10967 PROFESSIO PROFESSIO IC PX 1/> 3 NAL REHAB NAL REHAB AREAS ASSOC ASSOC EACH 15 PSC PSC MIN EXERCISES THERAPEUT 51349 PROFESSIO CROSSFIEL IC PX 1/> 3 NAL REHAB D DEMI AREAS ASSOC EACH 15 PSC MIN EXERCISES THERAPEUT 97828 PROFESSIO CROSSFIEL ACTVITY 3 NAL REHAB D DEMI DIRECT PT ASSOC CONTACT PSC EACH 15 MIN THERAPEUT 31549 PROFESSIO CROSSFIEL IC PX 1/> 3 NAL REHAB D DEMI AREAS ASSOC EACH 15 PSC MIN EXERCISES THERAPEUT 84119 PROFESSIO CROSSFIEL IC PX 1/> 3 NAL REHAB D DEMI AREAS ASSOC EACH 15 PSC MIN EXERCISES PROF SVCS 12118 LAILA LAILA ALLG 3 RENUKA RENUKA IMMNTX X W/PRV ALLGIC XTRCS NJXS THERAPEUT 20385 PROFESSIO CROSSFIEL IC PX 1/> 3 NAL REHAB D DEMI AREAS ASSOC EACH 15 PSC MIN EXERCISES THERAPEUT 77849 PROFESSIO CROSSFIEL IC PX 1/> 3 NAL REHAB D DEMI AREAS ASSOC EACH 15 PSC MIN EXERCISES THERAPEUT 75595 PROFESSIO CROSSFIEL IC PX 1/> 3 NAL REHAB D DEMI AREAS ASSOC EACH 15 PSC MIN EXERCISES THERAPEUT 18723 PROFESSIO CROSSFIEL IC PX 1/> 3 NAL REHAB D DEMI AREAS ASSOC EACH 15 PSC MIN EXERCISES THERAPEUT 58677 PROFESSIO CROSSFIEL IC PX 1/> 3 NAL REHAB D DEMI AREAS ASSOC EACH 15 PSC MIN EXERCISES THERAPEUT 99032 PROFESSIO PROFESSIO IC PX 1/> 3 NAL REHAB NAL REHAB AREAS ASSOC ASSOC EACH 15 PSC PSC MIN EXERCISES THERAPEUT 06783 PROFESSIO PROFESSIO IC PX 1/> 3 NAL REHAB NAL REHAB AREAS ASSOC ASSOC EACH 15 PSC PSC MIN EXERCISES PROF SVCS 48527 LAILA LAILA ALLG 3 RENUKA RENUKA IMMNTX X W/PRV ALLGIC XTRCS NJXS THERAPEUT 49016 PROFESSIO CROSSFIEL IC PX 1/> 3 NAL REHAB D DEMI AREAS ASSOC EACH 15 PSC MIN EXERCISES PHYSICAL 66042 PROFESSIO CROSSFIEL THERAPY 3 NAL REHAB D DEMI EVALUATIO ASSOC N PSC PROF [facility] 30287 LAILA LAILA ALLG 3 RENUKA RENUKA IMMNTX X W/PRV ALLGIC XTRCS NJXS PROF [facility] 89614 LAILA LAILA ALLG 3 RENUKA RENUKA IMMNTX X W/PRV ALLGIC XTRCS NJXS PROF [facility] 83957 LAILA LAILA ALLG 3 REUNKA RENUKA IMMNTX X W/PRV ALLGIC XTRCS NJXS PROF [facility] 17946 LAILA LAILA ALLG 3 RENUKA RENUKA IMMNTX X W/PRV ALLGIC XTRCS NJXS PROF [facility] 38060 LAILA LAILA ALLG 3 RENUKA RENUKA IMMNTX X W/PRV ALLGIC XTRCS NJXS PROF [facility] 35238 LAILA LAILA ALLG 3 RENUKA RENUKA IMMNTX X W/PRV ALLGIC XTRCS NJXS PROF [facility] 75272 LAILA LAILA ALLG 3 RENUKA RENUKA IMMNTX X W/PRV ALLGIC XTRCS NJXS THERAPEUT 96303 [facility] IC [facility] PROPHYLAC INC INC TIC/DX INJECTION SUBQ/IM OPHTH 43842 [facility] 3 MEDICAL SHE XM&EVAL SERV INTERMEDI FOUNDATIO ATE ESTAB PT PROF [facility] 00200 LAILA LAILA ALLG 3 RENUKA RENUKA IMMNTX X W/PRV ALLGIC XTRCS NJXS PROF [facility] 30272 LAILA LAILA ALLG 3 RENUKA RENUKA IMMNTX X W/PRV ALLGIC XTRCS NJXS PREPJ& 06798 LAILA LAILA ALLERGEN 3 RENUKA RENUKA 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 [facility] 78380 LAILA LAILA ALLG 3 RENUKA RENUKA IMMNTX X W/PRV ALLGIC XTRCS NJXS PROF [facility] 25260 LAILA LAILA ALLG 3 RENUKA RENUKA IMMNTX X W/PRV ALLGIC XTRCS NJXS PROF [facility]CS 46166 LAILA LAILA ALLG 3 RENUKA RENUKA IMMNTX X W/PRV ALLGIC XTRCS NJXS PROF [facility] 16761 LAILA LAILA ALLG 2 RENUKA RENUKA IMMNTX X W/PRV ALLGIC XTRCS NJXS PROF SVCS 12512 LAILA LAILA ALLG 2 RENUKA RENUKA IMMNTX X W/PRV ALLGIC XTRCS NJXS PROF [facility] 96057 LAILA LAILA ALLG 2 RENUKA RENUKA IMMNTX X W/PRV ALLGIC XTRCS NJXS INJ J0702 AUSTENMARIE JIMENEZ BETAMETHA 2 BARBARA BARBARA SONE ACETATE & PHOSPHATE 3 MG PROF [facility] 16079 LAILA LAILA ALLG 2 RENUKA RENUKA IMMNTX X W/PRV ALLGIC XTRCS NJXS PROF [facility] 56444 LAILA LAILA ALLG 2 RENUKA RENUKA IMMNTX X W/PRV ALLGIC XTRCS NJXS INJ J0702 TONY JIMENEZ BETAMETHA 2 BARBARA BARBARA SONE ACETATE & PHOSPHATE 3 MG PROF [facility] 78033 LAILA LAILA ALLG 2 RENUKA RENUKA IMMNTX X W/PRV ALLGIC XTRCS NJXS PROF [facility] 63906 LAILA LAILA ALLG 2 RENUKA RENUKA IMMNTX X W/PRV ALLGIC XTRCS NJXS PROF [facility] 73515 LAILA LAILA ALLG 2 RENUKA RENUKA IMMNTX X W/PRV ALLGIC XTRCS NJXS PROF [facility] 36511 LAILA LAILA ALLG 2 RENUKA RENUKA IMMNTX X W/PRV ALLGIC XTRCS NJXS PROF [facility] 97502 LAILA LAILA ALLG 2 RENUKA RENUKA IMMNTX X W/PRV ALLGIC XTRCS NJXS PROF SVCS 23620 LAILA LAILA ALLG 2 RENUKA RENUKA IMMNTX X W/PRV ALLGIC XTRCS NJXS PROF [facility] 31428 LAILA LAILA ALLG 2 RENUKA RENUKA IMMNTX X W/PRV ALLGIC XTRCS NJXS ANES 34611 SUBURBAN CASPER LOWER 2 ANESTHESI BARBARA INTESTINE A PSC ENDOSCOPY DISTAL DUODENUM PROF [facility] 98788 LAILA LAILA ALLG 2 RENUKA RENUKA IMMNTX X W/PRV ALLGIC XTRCS NJXS PROF [facility] 52419 LAILA LAILA ALLG 2 RENUKA RENUKA IMMNTX X W/PRV ALLGIC XTRCS NJXS PROF [facility] 45926 LAILA LAILA ALLG 2 RENUKA RENUKA IMMNTX X W/PRV ALLGIC XTRCS NJXS PROF [facility] 45057 LAILA LAILA ALLG 2 RENUKA RENUKA IMMNTX X W/PRV ALLGIC XTRCS NJXS INJECTION J1040 LAILA LAILA 2 RENUKA RENUKA METHYLPRE DNISOLONE ACETATE 80 MG THERAPEUT 20075 LAILA LAILA IC 2 RENUKA RENUKA PROPHYLAC TIC/DX INJECTION SUBQ/IM PROF [facility] 76616 LAILA LAILA ALLG 2 RENUKA RENUKA IMMNTX X W/PRV ALLGIC XTRCS NJXS PROF [facility] 54170 LAILA LAILA ALLG 2 RENUKA RENUKA IMMNTX X W/PRV ALLGIC XTRCS NJXS PROF [facility] 01431 LAILA LAILA ALLG 2 RENUKA RENUKA IMMNTX X W/PRV ALLGIC XTRCS NJXS OPHTH 28417 [facility] MEDICAL 2 MEDICAL SHE XM&EVAL SERV INTERMEDI FOUNDATIO ATE ESTAB PT COMPUTERI 74279 [place] [facility] ZED 2 MEDICAL SHE OPHTHALMI SERV C IMAGING FOUNDATIO OPTIC NERVE PROF [facility] 97575 LAILA LAILA ALLG 2 RENUKA RENUKA IMMNTX X W/PRV ALLGIC XTRCS NJXS PROF [facility] 64106 LAILA LAILA ALLG 2 RENUKA RENUKA IMMNTX X W/PRV ALLGIC XTRCS NJXS PROF [facility] 99801 LAILA LAILA ALLG 2 RENUKA RENUKA IMMNTX X W/PRV ALLGIC XTRCS NJXS PREPJ& 06922 LAILA LAILA ALLERGEN 2 RENUKA RENUKA 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 [address] LAILA LAILA ALLG 2 RENUKA RENUKA IMMNTX X W/[place] [address] LAILA LAILA ALLG 2 RENUKA RENUKA IMMNTX X W/[place] [address] LAILA LAILA ALLG 2 RENUKA RENUKA IMMNTX X W/[place] [address] LAILA LAILA ALLG 2 RENUKA RENUKA IMMNTX X W/[place] [address] LAILA LAILA ALLG 2 RENUKA RENUKA IMMNTX X W/[place] [address] LAILA LAILA ALLG 2 RENUKA RENUKA IMMNTX X W/[place] [address] LAILA LAILA ALLG 2 RENUKA RENUKA IMMNTX X W/[place] [address] LAILA LAILA ALLG 2 RENUKA RENUKA IMMNTX X W/[place] [address] LAILA LAILA ALLG 2 RENUKA RENUKA IMMNTX X W/[place] [address] LAILA LAILA ALLG 2 RENUKA RENUKA IMMNTX X W/[place] [address] LAILA LAILA ALLG 2 RENUKA RENUKA IMMNTX X W/PRV ALLGIC XTRCS NJXS PREPJ& 68490 LAILA LAILA ALLERGEN 2 RENUKA RENUKA 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 [address] LAILA LAILA ALLG 2 RENUKA RENUKA IMMNTX X W/PRV ALLGIC XTRCS NJXS PROF [facility] 86014 LAILA LAILA ALLG 2 RENUKA RENUKA IMMNTX X W/PRV ALLGIC XTRCS NJXS PROF [facility] 50619 LAILA LAILA ALLG 2 RENUKA RENUKA IMMNTX X W/PRV ALLGIC XTRCS NJXS PROF [facility] 31106 LAILA LAILA ALLG 2 RENUKA RENUKA IMMNTX X W/[place] [address] LAILA LAILA ALLG 2 RENUKA RENUKA IMMNTX X W/[place] [address] LAILA LAILA ALLG 2 RENUKA RENUKA IMMNTX X W/[place] [address] LAILA LAILA ALLG 2 RENUKA RENUKA IMMNTX X W/[place] [address] LAILA LAILA ALLG 2 RENUKA RENUKA IMMNTX X W/PRV ALLGIC XTRCS NJXS PREPJ& 86251 LAILA LAILA ALLERGEN 2 RENUKA RENUKA 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 [facility] 13400 LAILA LAILA ALLG 2 RENUKA RENUKA IMMNTX X W/PRV ALLGIC XTRCS NJXS PROF [facility] 09599 LAILA LAILA ALLG 1 RENUKA RENUKA IMMNTX X W/[place] [address] LAILA LAILA ALLG 1 RENUKA RENUKA IMMNTX X W/PRV ALLGIC XTRCS NJXS PROF [facility] 07380 LAILA LAILA ALLG 1 RENUKA RENUKA IMMNTX X W/PRV ALLGIC XTRCS NJXS PROF [facility] 95016 LAILA LAILA ALLG 1 RENUKA RENUKA IMMNTX X W/PRV ALLGIC XTRCS NJXS PROF [facility] 09114 LAILA LAILA ALLG 1 RENUKA RENUKA IMMNTX X W/PRV ALLGIC XTRCS NJXS PROF [facility] 07517 LAILA LAILA ALLG 1 RENUKA RENUKA IMMNTX X W/PRV ALLGIC XTRCS NJXS PROF [facility] 45692 LAILA LAILA ALLG 1 RENUKA RENUKA IMMNTX X W/PRV ALLGIC XTRCS NJXS PROF [facility] 77957 LAILA LAILA ALLG 1 RENUKA RENUKA IMMNTX X W/PRV ALLGIC XTRCS NJXS PROF [facility] 02050 LAILA LAILA ALLG 1 RENUKA RENUKA IMMNTX X W/PRV ALLGIC XTRCS NJXS PROF [facility] 40511 LAILA LAILA ALLG 1 RENUKA RENUKA IMMNTX X W/PRV ALLGIC XTRCS NJXS PROF [facility] 81507 LAILA LAILA ALLG 1 RENUKA RENUKA IMMNTX X W/PRV ALLGIC XTRCS NJXS OPHTH 16581 [place] [address] MEDICAL SHE XM&EVAL SERV COMPRHNSV FOUNDATIO ESTAB PT 1/> PROF [facility] 29370 LAILA LAILA ALLG 1 RENUKA RENUKA IMMNTX X W/PRV ALLGIC XTRCS NJXS THERAPEUT 95644 LAILA LAILA IC 1 RENUKA RENUKA PROPHYLAC TIC/DX INJECTION SUBQ/IM INJECTION J1040 LAILA LAILA 1 RENUKA RENUKA METHYLPRE DNISOLONE ACETATE 80 MG PROF [facility] 14552 LAILA LAILA ALLG 1 RENUKA RENUKA IMMNTX X W/PRV ALLGIC XTRCS NJXS PREPJ& 14627 LAILA LAILA ALLERGEN 1 RENUKA RENUKA 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 [facility] 42182 LAILA LAILA ALLG 1 RENUKA RENUKA IMMNTX X W/PRV ALLGIC XTRCS NJXS PROF [facility] 70969 LAILA LAILA ALLG 1 RENUKA RENUKA IMMNTX X W/PRV ALLGIC XTRCS NJXS PROF [facility] 75864 LAILA LAILA ALLG 1 RENUKA RENUKA IMMNTX X W/PRV ALLGIC XTRCS NJXS PROF [facility] 82626 LAILA LAILA ALLG 1 RENUKA RENUKA IMMNTX X W/PRV ALLGIC XTRCS NJXS THERAPEUT 60921 LAILA LAILA IC 1 RENUKA RENUKA PROPHYLAC TIC/DX INJECTION SUBQ/IM INJECTION J2010 LAILA LAILA 1 RENUKA RENUKA LINCOMYCI N HCL UP TO 300 MG INJECTION J1040 LAILA LAILA 1 RENUKA RENUKA METHYLPRE DNISOLONE ACETATE 80 MG PROF [facility] 01897 LAILA LAILA ALLG 1 RENUKA RENUKA IMMNTX X W/PRV ALLGIC XTRCS NJXS PROF [facility]CS 97412 LAILA LAILA ALLG 1 RENUKA RENUKA IMMNTX X W/PRV ALLGIC XTRCS NJXS PROF [facility] 81401 LAILA LAILA ALLG 1 RENUKA RENUKA IMMNTX X W/PRV ALLGIC XTRCS NJXS PROF [facility] 12139 LAILA LAILA ALLG 1 RENUKA RENUKA IMMNTX X W/PRV ALLGIC XTRCS NJXS PROF SVCS 20715 LAILA LAILA ALLG 1 RENUKA RENUKA IMMNTX X W/PRV ALLGIC XTRCS NJXS PREPJ& 49966 LAILA LAILA ALLERGEN 1 RENUKA RENUKA 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 DEMO&/BOZENA 86964 LAILA LAILA L OF PT 1 RENUKA RENUKA UTILIZ AERSL GEN/NEB/I NHLR/IP PERCUTANE 59425 LAILA LAILA OUS TESTS 1 RENUKA RENUKA W/ALLERGE RENETTA EXTRACTS INTRACUTA 24007 LAILA LAILA NEOUS 1 RENUKA RENUKA TESTS W/ALLERGE RENETTA EXTRACTS COLLECTIO 00107 [facility] N VENOUS 1 [facility] BLOOD INC INC VENIPUNCT URE ALLERGEN 97780 [facility] SPARKS SPECIFIC 1 [facility] IGE INC INC WILIAN/SEMI WILIAN EA ALLERGEN BRNCDILAT 22092 LAILA LAILA RSPSE 1 RENUKA RENUKA SPMTRY PRE&POST- BRNCDILAT ADMN ALBUTEROL J7620 LAILA LAILA TO 2.5 1 RENUKA RENUKA MG & IPRATROPI UM BROM TO 0.5 MG Encounters Encounter Start End Date Code Location Performer Type Date OFFICE 54197 [facility] OUTPATIEN 7 7 [facility]ERS T [facility] [place] 25 CO MINUTES EMERGENCY 78386 [facility] 7 7 [facility] DEPARTMEN INC T VISIT MODERATE SEVERITY EMERGENCY 31971 MECCA HOANG DEPT 7 7 PHYSICIAN VISIT S, [facility] HIGH SEVERITY& THREAT [facility] [place] [facility] - 7 7 [facility] OUTPATIEN INC T OFFICE 64593 [facility] HIGH OUTPATIEN 7 7 PARTNERS T VIS[facility] OF [place] 40 CO MINUTES OFFICE 24126 TONY MCKEONPATIEN 7 7 T VISIT 15 MINUTES OFFICE 21672 TONY JIMENEZ OUTPATIEN 6 6 BARBARA BARBARA T VISIT 15 MINUTES OFFICE 00934 [facility] OUTPATIEN 6 6 [facility]NERS T [facility] [place] 25 CO MINUTES OFFICE 48478 TONY JIMENEZ OUTPATIEN 6 6 BARBARA BARBARA T VISIT 15 MINUTES OFFICE 53703 [facility] MAR OUTPATIEN 6 6 [facility]NERS T [facility] [place] 25 CO MINUTES OFFICE 09534 [facility] OUTPATIEN 6 6 N T VISIT NEUROLOGY 10 MINUTES [facility]OSP[facility] - 6 6 N OUTPATIEN COMMUNTIY T HOSPITA OFFICE 06899 [facility] OUTPATI[facility] 6 6 [place] T VISIT ONCOLOGY 15 & [facility]UTES [facility] - 6 6 N OUTPATIEN COMMUNTIY T HOSPITA OFFICE 68637 [facility] OUTPATIEN 6 6 N T VISIT NEUROLOGY 25 MINUTES OFFICE 36325 [facility] 15 & MINUTES OFFICE 90758 [facility] OUTPATIEN 5 5 [facility]ERS T VISIT [facility] [place] 25 CO MINUTES [facility]OS[facility] - 5 5 N OUTPATIEN COMMUNTIY T HOSPITA OFFICE 13270 [facility] OUTPATIEN 5 5 [place] T VISIT ONCOLOGY 15 & MINUTES OFFICE 31117 [facility] 5 5 [facility]BARA BARBARA T VISIT 15 MINUTES [facility]OSP[facility] - 5 5 [facility] OUTPATIEN INC T OFFICE 61573 TONY JIMENEZ OUTPATIEN 5 5 BARBARA BRABARA T VISIT 15 MINUTES [facility]OSP[facility] - 5 5 N OUTPATIEN COMMUNTIY T HOSPITA OFFICE 27862 [facility] [place] [facility] T VISIT ONCOLOGY 15 & MINUTES OFFICE 32536 [facility] OUTPATIEN 5 5 [facility]ERS T [facility] [place] 25 CO MINUTES OFFICE 26606 [facility] OUTPATIEN 5 5 [facility] T V[facility] [place] 25 CO MINUTES [facility]OS[facility] - 5 5 N OUTPATIEN COMMUNTIY T HOSPITA [facility] - 5 5 N OUTPATIEN COMMUNTIY T HOSPITA OFFICE 65325 [facility] [place] [facility] T NEW 45 ONCOLOGY MINUTES & [facility] - 5 5 N OUTPATIEN COMMUNTIY T HOSPITA [facility] - 5 5 N OUTPATIEN COMMUNTIY T HOSPITA OFFICE 35298 [facility] OUTPATIEN 5 5 N T NEW 45 NEUROLOGY MINUTES [facility] - 5 5 N OUTPATIEN COMMUNTIY T HOSPITA OFFICE 89981 [facility] OUTPATIEN 5 5 PARTNERS T V[facility] [place] 25 CO MINUTES OFFICE 78677 [facility] JIMENEZ OUTPATIEN 5 5 BARBARA BARBARA T VISIT 15 MINUTES OFFICE 49420 TONY JIMENEZ OUTPATIEN 5 5 BARBARA BARBARA T VISIT 15 MINUTES OFFICE 80667 [facility] OUTPATIEN 5 5 PHYSICIAN MAX T VISIT S GROUP 15 MINUTES OFFICE 18111 [facility] 5 5 [facility] 5 [facility] MINUTES P [facility] - [facility] 5 [facility] T OFFICE 53862 [facility] OUTPATIEN 5 5 MAX MAX T VISIT 15 MINUTES OFFICE 13958 LAIAL LAILA OUTPATIEN 5 5 RENUKA RENUKA T VISIT 15 MINUTES [facility] - [facility] 5 [facility] T OFFICE 55430 NEWNOEMI COOK MENG OUTPATIEN 5 5 [facility] V[facility] 15 MINUTES OFFICE 56876 [facility] OUTPATIEN 5 5 MAX MAX T VISIT 10 MINUTES OFFICE 84107 [facility] 4 4 [facility] 5 [facility] MINUTES P [facility] - 4 4 [facility]PATI[facility] INC T OFFICE 84206 [facility] OUTPATIEN 4 4 MAX MAX T VISIT 25 MINUTES OFFICE 58882 [facility] 4 4 [facility] 15 P MINUTES OFFICE 24371 [facility] JACKSON OUTPATIEN 4 4 MAX MAX T NEW 30 MINUTES OFFICE 34368 AUSTENMARIE TONY OUTPATIEN 4 4 BARBARA BARBARA T VISIT 15 MINUTES OFFICE 32426 TONY STEWARD 4 4 BARBARA BARBARA T VISIT 15 MINUTES OFFICE 48357 CJ COOK MENG STEWARD 4 4 [facility] T VISIT CENTER 15 MINUTES OFFICE 69313 LAILA STEWARD 4 4 RENUKA RENUKA T VISIT 25 MINUTES OFFICE 11463 TONY STEWARD 4 4 BARBARA BARBARA T VISIT 15 MINUTES EMERGENCY 97328 [facility] 4 4 DANA JESSICA DEPARTMEN EMERGENCY T VISIT PHYS MODERATE SEVERITY EMERGENCY 33363 [facility] [place] 2] 4 4 DANA JESSICA DEPARTMEN EMERGENCY T VISIT PHYS HIGH/URGE NT SEVERITY OFFICE 91529 TONY STEWARD 4 4 BARBARA BARBARA T VISIT 15 MINUTES OFFICE 00180 LAILA STEWARD 4 4 RENUKA RENUKA T VISIT 40 MINUTES OFFICE 88973 TONY STEWARD 4 4 BARBARA BARBARA T VISIT 15 MINUTES OFFICE 64440 [facility] STEWARD 4 4 [facility]OSPITAL 10 P MINUTES OFFICE 00716 LAILA STEWARD 4 4 RENUKA RENUKA T VISIT 25 MINUTES OFFICE 64604 TONY STEWARD 4 4 BARBARA BARBARA T VISIT 15 MINUTES OFFICE 50370 TONY STEWARD 3 3 BARBARA BARBARA T VISIT 15 MINUTES OFFICE 49576 TONY STEWARD 3 3 BARBARA BARBARA T VISIT 15 MINUTES OFFICE 09885 [facility] STEWARD 3 3 [facility] 10 P MINUTES OFFICE 45439 [facility] 3 3 [facility] 15 P MINUTES OFFICE 95600 TONY STEWARD 3 3 BARBARA BARBARA T VISIT 15 MINUTES OFFICE 38457 LAILA ULLOA OUTPATIEN 3 3 RENUKA GRAYSON T VISIT 25 MINUTES OFFICE 73676 [facility] STEWARD 3 3 [facility] 15 P MINUTES OFFICE 68322 TONY STEWARD 3 3 BARBARA BARBARA T VISIT 15 MINUTES OFFICE 61840 TONY STEWARD 3 3 BARBARA BARBARA T VISIT 15 MINUTES OFFICE 54609 TONY JIMENEZ OUTPATIAUNG 3 3 BARBARA BARBARA T VISIT 15 MINUTES [facility]OSP[facility] - 3 3 [facility] OUTPATIEN INC T OFFICE 35071 TONY STEWARD 3 3 BARBARA BARBARA T VISIT 15 MINUTES EMERGENCY 89868 SERENA GOODRICH 3 3 EMERGENCY DEPARTMEN SERVICES T VISIT HIGH/URGE NT SEVERITY EMERGENCY 10217 [facility] 3 3 [facility] DEPARTMEN INC T VISIT LOW/MODER SEVERITY OFFICE 75747 LAILA ULLOA OUTPATIEN 3 3 RENUKA GRAYSON T VISIT 15 MINUTES OFFICE 56999 TONY STEWARD 3 3 BARBARA BARBARA T VISIT 15 MINUTES OFFICE 51992 LAILA ULLOA OUTPATIEN 3 3 RENUKA GRAYSON T VISIT 15 MINUTES OFFICE 20763 TONY STEWARD 3 3 BARBARA BARBARA T VISIT 15 MINUTES OFFICE 78033 TONY STEWARD 2 2 BARBARA BARBARA T VISIT 15 MINUTES OFFICE 45913 TONY STEWARD 2 2 BARBARA BARBARA T VISIT 15 MINUTES OFFICE 79049 LAILA ULLOA OUTPATIAUNG 2 2 RENUKA GRAYSON T VISIT 15 MINUTES OFFICE 03776 TONY STEWARD 2 2 BARBARA BARBARA T VISIT 15 MINUTES OFFICE 38248 TONY JIMENEZ OUTPATIEN 2 2 BARBARA BARBARA T VISIT 15 MINUTES OFFICE 92691 CJ COOK MENG OUTPATIEN 2 2 VISION T VISIT 15 MINUTES OFFICE 37102 TONY JIMENEZ OUTPATIEN 2 2 BARBARA BARBARA T VISIT 15 MINUTES OFFICE 21636 TONY JIMENEZ OUTPATIEN 2 2 BARBARA BARBARA T VISIT 15 MINUTES OFFICE 13370 CJ COOK MENG OUTPATIEN 2 2 VISION T VISIT 15 MINUTES OFFICE 81456 LAILA LAILA OUTPATIEN 2 2 RENUKA RENUKA T VISIT 15 MINUTES OFFICE 88537 [facility] BARCENAS OUTPATIEN 1 1 [facility] HOSPITAL MINUTES P OFFICE 47946 AUSTENMARIE JIMENEZ OUTPATIEN 1 1 BARBARA BARBARA T VISIT 15 MINUTES OFFICE 52712 LAILA LAILA OUTPATIEN 1 1 RENUKA RENUKA T VISIT 15 MINUTES OFFICE 47360 LAILA LAILA OUTPATIEN 1 1 RENUKA RENUKA T VISIT 15 MINUTES OFFICE 40071 AUSTENMARIE TONY OUTPATIEN 1 1 BARBARA BARBARA T VISIT 15 MINUTES OFFICE 21677 LAILA LAILA OUTPATIEN 1 1 RENUKA RENUKA T VISIT 15 MINUTES [facility]OSPITAL [facility] - 1 1 [facility] OUTPATIEN INC T OFFICE 91352 LAILA LAILA OUTPATIEN 1 1 RENUKA RENUKA T NEW 45 MINUTES
--- OUTSIDE RECORDS SUMMARY | 2017-04-10 17:12 | External Medical Summary Rpt ---
Author Author DANY Ortiz, DANY Ortiz Organization [employer] Address Unknown Phone Unavailable
--- OUTSIDE RECORDS SUMMARY | 2017-04-10 17:12 | External Medical Summary Rpt ---
Demographics Preferred Language Qatari Marital Status Unknown Moravian Affiliation Unknown Race Unknown Ethnic Group Unknown Author Author LISANDRO Address Unknown Phone Immunization No patient found.
--- OUTSIDE RECORDS SUMMARY | 2017-04-10 17:12 | External Medical Summary Rpt ---
Demographics Preferred Language Maldivian Marital Status Unknown Congregational Affiliation Unknown Race Unknown Ethnic Group Unknown Author Author LISANDRO Address Unknown Phone Immunization No patient found.
== END 2017-04-09 13:16 | disposition home or self-care (01) ==
LOC: UTC 12:53
DX: J67.8 Hypersensitivity pneumonitis due to other organic dusts (principal); Z72.0 Tobacco use